=== PATIENT | male | born 1980 | race Hispanic/Latino ===

== ENCOUNTER 2023-06-15 14:23 | Outpatient (CLI) | payer BC, SELFPAY ==
[2023-06-15 18:37] LABS: Monoscreen Negative (Negative); Negative Monotest Control Negative (Negative); Positive Monotest Control Positive (Positive)
== END 2023-06-15 14:24 | disposition home or self-care (01) ==
LOC: ANHGOSHLAB 14:24
PROVIDERS: PCP Family Medicine; Visit Provider Family Medicine
DX: R68.89 Other general symptoms and signs (principal)
CPT/HCPCS: 36415; 86308

== ENCOUNTER 2024-01-27 00:23 | Day surgery (SDC) | payer BC, SELFPAY ==
[2024-01-20 09:11] VITALS: BMI 33.4
--- NOTE | 2024-01-25 10:03 | SUR.PREOP ---
Patient called regarding upcoming procedure. Reviewed preop instructions, appointment times, and procedure prep.
[2024-01-27 07:12] VITALS: BP 149/86; PULSE 65; RESP 18; TEMP 36.2; O2SAT 98; BMI 33.6
[2024-01-27] MEDS: LACTATED RINGERS 1,000 ML 150 ML IV CONT (07:30)
--- NOTE | 2024-01-27 07:52 | P.PNAN_ITS ---
Anes - Initial Pre Proc Eval Procedure: Operation Date: 01/27/24 08:30 Proposed Procedures p Screening Colonoscopy - Daniel Duenas MD Date/Time: 01/27/24 07:52 Surgeon: Daniel Duenas MD Pre Op Diagnosis: neoplasm screening Patient Data Age: 43 Gender: M Height: 1.85 m Weight: 115.6 kg Last Vital Signs Temp 97.1 F L 01/27/24 07:12 Pulse 65 01/27/24 07:12 Resp 18 01/27/24 07:12 BP 149/86 H 01/27/24 07:12 Pulse Ox 98 01/27/24 07:12 O2 Del Method Room Air 01/27/24 07:12 Allergies Allergy/AdvReac Type Severity Reaction Status Date / Time Penicillins Allergy Mild Hives Verified 01/27/24 07:18 Home Medications Medication Instructions Recorded Confirmed Type tizanidine 4 mg tablet 4 mg PO QHS PRN muscle spasticity 09/17/22 01/27/24 Rx #90 tabs aspirin 81 mg capsule 81 mg PO DAILY 01/20/24 01/27/24 History Patient hx anesthesia problems: none Family hx anesthesia problems: none Results Review: All pre-operative results and documents have been reviewed as part of the pre- operative evaluation. FORMERLY [facility], [facility] Surgical History Surgical History H/O microdiscectomy S/P ACL repair Family History Family History Mother No problems noted. Father No problems noted. Grandparent , Age 70 unknown cause No problems noted. Grandparent , Age 80 Heart Disease No problems noted. Grandparent , Age 78 Lung Cancer No problems noted. Grandparent , Age 84 Heart Failure No problems noted. Social History Social History Smoking status: Never smoker Alcohol intake: current Drinks per week: 10 Substance use: never Current Housing: Decline to Answer Concerned About Future Housing: Decline to Answer Difficulty Paying Gas/Electric Bills: Decline to Answer Difficulty Paying for Meds: Decline to Answer Currently Unemployed: Decline to Answer Education: Decline to Answer Difficulty w/ Childcare or Family Care: Decline to Answer Living arrangements: with family Spiritual care concerns: No Anes - Eval Final PreProcedure Day of Procedure 01/27/24 07:52 Patient weight: obese Heart: regular rate and rhythm Lungs: clear to auscultation Airway: Mallampati scale class II Neurological: alert and oriented Last oral intake: >/= 8 hours ASA classification: II Emergent: no Anesthetic plan: proceed Anesthesia type and monitoring: general GIVS and standard monitoring Results Review: All pre-operative results and documents have been reviewed as part of the pre- operative evaluation. Informed Consent: The patient's anesthetic plan and its attendant risks and benefits were discussed with the patient/family/POA. Questions were solicited and answers provided to the satisfaction of the patient/family/POA.
--- NOTE | 2024-01-27 08:15 | P.HP_ITS ---
History of Present Illness History of Present Illness Consent: Risks, benefits, and alternatives have been discussed and questions answered. Patient agrees to proceed with procedure. Chief complaint: neoplasm screening Narrative: Alejo Slade is a 43 year old male here for first screening colonoscopy Review of Systems Review of Systems: All systems reviewed & are unremarkable except as noted in HPI and below [facility] Past Medical History Medical History (Updated 01/27/24 @ 08:16 by Daniel Duenas MD) Colon cancer screening Surgical History Surgical History H/O microdiscectomy S/P ACL repair Family History Family History Mother No problems noted. Father No problems noted. Grandparent , Age 70 unknown cause No problems noted. Grandparent , Age 80 Heart Disease No problems noted. Grandparent , Age 78 Lung Cancer No problems noted. Grandparent , Age 84 Heart Failure No problems noted. Social History Social History Smoking status: Never smoker Alcohol intake: current Drinks per week: 10 Substance use: never Current Housing: Decline to Answer Concerned About Future Housing: Decline to Answer Difficulty Paying Gas/Electric Bills: Decline to Answer Difficulty Paying for Meds: Decline to Answer Currently Unemployed: Decline to Answer Education: Decline to Answer Difficulty w/ Childcare or Family Care: Decline to Answer Living arrangements: with family Spiritual care concerns: No Meds Home Medications and Allergies Home Medications Medication Instructions Recorded Confirmed Type tizanidine 4 mg tablet 4 mg PO QHS PRN muscle spasticity 09/17/22 01/27/24 Rx #90 tabs aspirin 81 mg capsule 81 mg PO DAILY 01/20/24 01/27/24 History Allergies Allergy/AdvReac Type Severity Reaction Status Date / Time Penicillins Allergy Mild Hives Verified 01/27/24 07:18 Vital Signs Vital Signs - 24 hr 01/27/24 07:12 Temperature 97.1 F L Pulse Rate 65 Respiratory Rate 18 Blood Pressure 149/86 H Pulse Oximetry 98 Oxygen Delivery Room Air Exam Const: General: comfortable and no acute distress HENMT: Face/Nose/Sinus: Normal nares present Eyes: General: appearance normal, both eyes and all related structures Neck: Neck: no JVD Resp: Auscultation: clear to auscultation bilaterally Cardio: Rate: regular rate Rhythm: regular rhythm GI: Inspection: non-distended GI Palp: Yes Soft to palpation Skin: General skin exam: normal color Neuro: General: gait normal Speech: normal speech Extrem: General: normal to inspection Psych: Mental Status: mental status grossly normal Assessment and Plan Assessment and plan (1) Colon cancer screening: Code(s): Z12.11 - Encounter for screening for malignant neoplasm of colon Status: Acute Assessment and Plan: colonoscopy
[2024-01-27 08:33] VITALS: BP 122/80; PULSE 69; RESP 17; O2SAT 97
[2024-01-27 08:43] VITALS: BP 135/82; PULSE 66; RESP 18; O2SAT 97
[2024-01-27 08:53] VITALS: BP 142/92; PULSE 62; RESP 23; O2SAT 97
== END 2024-01-27 08:56 | disposition home or self-care (01) ==
PROVIDERS: PCP Family Medicine; Visit Provider Internal Medicine Gastroenterology
PROC: 0DJD8ZZ Inspection of Lower Intestinal Tract, Via Natural or Artificial Opening Endoscopic (ICD-10-PCS; CPT 45378; principal; 2024-01-27 08:30)
DX: Z12.11 Encounter for screening for malignant neoplasm of colon (principal); K64.8 Other hemorrhoids; E66.9 Obesity, unspecified; Z68.33 Body mass index [BMI] 33.0-33.9, adult
CPT/HCPCS: 45378; J2704; J7120

== ENCOUNTER 2024-10-30 10:30 | Outpatient (CLI) | payer BC, SELFPAY ==
[2024-10-30 14:31] LABS: Basophils Percent Auto 0.3 % (0.2-1.2); Eosinophils Absolute Auto 0.1 K/mm3 (0-0.3); Eosinophils Percent Auto 0.8 % (0-4.4); Hemoglobin 15.8 g/dL (14.0-18.0); Immature Granulocyte Absolute 0.01 K/mm3 (0.00-0.031); Immature Granulocyte Percent A 0.2 % (0-0.5); Lymphocytes Absolute Auto 1.84 K/mm3 (0.9-3.2); Lymphocytes Percent Auto 28.8 % (18.3-44.2); Mean Corpuscular HGB Conc 34.3 g/dl (32-36); Mean Corpuscular Hemoglobin 31.7 pg (26-34); Mean Corpuscular Volume 92.2 fl (80-100); Mean Platelet Volume 9.1 fl (7.4-10.4); Monocytes Absolute Auto 0.5 K/mm3 (0.1-0.6); Monocytes Percent Auto 8.5 % (2.6-8.5); Neutrophils Absolute Auto 3.9 K/mm3 (1.3-6.7); Neutrophils Percent Auto 61.4 % (45.5-73.1); Platelet Count Result 307 k/mm3 (150-375); Red Blood Count 4.99 M/mm3 (4.6-6.20); Red Cell Distribution Width 11.9 % (11.5-14.5); White Blood Count 6.4 K/mm3 (4.5-10.0)
[2024-10-30 14:39] LABS: Alanine Aminotransferase 46 U/L (6-50); Albumin Level 4.6 g/dL (3.5-5.1); Alkaline Phosphatase 68 U/L (38-126); Anion Gap 4 mmol/L (4-12); Aspartate Amino Transferase 64 U/L (17-59); Bilirubin,Total 1.2 mg/dL (0.2-1.3); Blood Urea Nitrogen 16 mg/dL (9-20); Calcium 9.5 mg/dL (8.4-10.2); Carbon Dioxide 29 mmol/L (22-30); Chloride 103 mmol/L (98-107); Cholesterol 201 mg/dL (0-200); Estimated Glomerular Filt Rate > 60; Glucose 102 mg/dL (65-110); HDL Direct 50 mg/dL; Potassium 4.1 mmol/L (3.4-5.0); Sodium 136 mmol/L (137-145); Triglycerides 132 mg/dL (<150)
[2024-10-30 14:50] LABS: LDL Cholesterol Direct 112 mg/dL
[2024-10-30 14:56] LABS: Hemoglobin A1C 5.5 % (<5.7)
[2024-10-30 14:58] LABS: Vitamin D 25 Hydroxy 30.5 ng/mL
--- OUTSIDE RECORDS SUMMARY | 2024-11-06 21:49 | XMS_ITS | Patient Health Summary ---
Author Organization [facility] Address [address] [place] [address] Care Team Providers Care Entry Level Mechanical Engineer Name Role Phone Naresh Hart MD Primary Care Provider Note from Formerly named [facility],non-owned Affiliates and Associated Physician Practices is amultiple site organization consisting of ambulatory clinics and hospital sitesin [place], [place], [place] and [place]. This disclosure is being madepursuant to the Care Everywhere program and may not contain all information available regarding this patient. Last updated 18.[facility] [employer] Allergies * Penicillins(Rash) -Medium Criticality Active Problems Problem Noted Date Diagnosed Date Sciatica of right side 08/27/2015 Social History Tobacco Use Types Packs/Day Years Used Date Smoking Tobacco: Never Alcohol Use Standard Drinks/Week Comments Not Asked 0 (1 standard drink = 0.6 oz pur e alcohol) Sex and Gender Information Value Date Recorded Sex Assigned at Not on file Gender Identity Not on file Sexual Orientation Not on file Last Filed Vital Signs Vital Sign Reading Time Taken Comments Blood Pressure - - Pulse - - Temperature - - Respiratory Rate - - Oxygen Saturation - - Inhaled Oxygen Concentration - - Weight 113.4 kg (250 lb) 11/26/2015 1:35 PM PARARESCUE CRAFTSMAN Height 182.9 cm (6') 11/26/2015 1:35 PM PARARESCUE CRAFTSMAN Body Mass Index 33.91 11/26/2015 1:35 PM PARARESCUE CRAFTSMAN Procedures * DERMATOPATHOLOGY(Performed 03/12/2019) * XR LUMBAR SPINE 2 OR 3VW(Performed 11/26/2015) * XR LUMBAR SPINE 2 OR 3VW(Performed 08/27/2015) Results * DERMATOPATHOLOGY (03/12/2019 12:00 AM CDT) Case Report Dermatopathology Report ? Case: [id number] ? Authorizing Provider: ??Thu Joy MD ? Collected: ? 03/12/2019 12:00 AM ? Pathologist: ? Bertha Draper MD ?Received: ?03/13/2019 06:40 AM ? Specimen: ?Skin, right upper back ? 1:46 PM CDT DERMATOPATHOLOGY LABORATORY Final Diagnosis Specimen A. SKIN, right upper back: LENTIGINOUS MELANOCYTIC NEVUS, COMPOUND TYPE, IRRITATED (COMPOUND MELANOCYTIC NEVUS WITH ARCHITECTURAL DISORDER) (D22.5) 1:46 PM CDT DERMATOPATHOLOGY LABORATORY Clinical History Nevus, irreg color. 1:46 PM CDT DERMATOPATHOLOGY LABORATORY Gross Description Specimen A: Received is one formalin filled container labeled with the patient's name and designated right upper back. The specimen consists of a shave measuring [id number]. Jar 0. 1:46 PM CDT DERMATOPATHOLOGY LABORATORY Microscopic Description Specimen A. SKIN, right upper back: This is a compound nevus. There is melanin pigment in the stratum corneum. There is architectural disorder characterized by a lentiginous proliferation of melanocytes between irregular nevus nests of cells along the dermal epidermal junction. There is underlying fibroplasia of the papillary dermis. The intradermal component is bland in appearance and matures with depth. (Compound Benjamin's Nevus or Compound Dysplastic Nevus) 9 1:46 PM CDT DERMATOPATHOLOGY LABORATORY Disclaimer An external and internal positive and negative controls are appropriate for the histochemical, immunohistochemical and immunofluorescence stain(s) in this case (if any), except where stated explicitly. The performance characteristics of the stain(s) cited in this report were developed and its performance characteristic determined by the Dermatopathology Laboratory at [facility], directed by Dr. Adrianna Martini. These tests need not be, and therefore are not, approved by the [place] Food and Drug Administration. The tests are used for clinical purposes. Billing Codes Specimen Charges Stain Charges 12631 1 9 1:46 PM CDT DERMATOPATHOLOGY LABORATORY Embedded Images 9 1:46 PM CDT DERMATOPATHOLOGY LABORATORY Pathology/Cytolog y TISSUE SPECIMEN FROM SKIN / Unknown 03/12/2019 03/13/2019 6:40 AM CDT Thu Joy MD LAB - PATHOLOGY/CYT OLOGY ORDERABLES DERMATOPATHOLOGY LABORATORY [facility] - Department of Dermatology [address] [place] [address], [address] [phone] * XR LUMBAR SPINE 2 OR 3VW (11/26/2015 1:32 PM PARARESCUE CRAFTSMAN) Only the most recent of2 resultswithin the time period is included. Anatomical Region Laterality Modality Spine Other Impressions 11/26/2015 3:28 PM PARARESCUE CRAFTSMAN Impression: Unchanged moderate L4-5 and L5-S1 degenerative disc disease. Report dictated by Ruslan Moser M.D. (vice president of engineering). This report was approved ??by Ruslan Moser M.D. ?? on 11/26/2015 3:22 PM . I, Dr. GITA MENDES M.D. have personally reviewed and interpreted this examination/study. This report was electronically signed by GITA MENDES M.D. ??on 11/26/2015 3:28 PM . Narrative 11/26/2015 3:28 PM PARARESCUE CRAFTSMAN Exam: ??XR SPINE LUMBAR 2 OR 3 VW Date: 11/26/2015 1:32 PM History: ??follow up Comparison: 08/27/2015. Findings: 2 views of the lumbar spine were obtained and compared to 08/27/2015. The alignment is normal. The vertebral body heights are normal. There is unchanged moderate disc space narrowing at L5-S1 and mild disc space narrowing at L4-L5. Mild facet osteoarthritis is present at L4-5 and L5-S1. The sacroiliac joints are intact. Procedure Note Gita Mendes MD - 02/04/2018 Exam: XR SPINE LUMBAR 2 OR 3 VW Date: 11/26/2015 1:32 PM History: follow up Comparison: 08/27/2015. Findings: 2 views of the lumbar spine were obtained and compared to 08/27/2015. Thealignment is normal. The vertebral body heights are normal. There isunchanged moderate disc space narrowing at L5-S1 and mild disc spacenarrowing at L4-L5. Mild facet osteoarthritis is present at L4-5 and L5-S1. The sacroiliac joints areintact. IMPRESSION Impression: Unchanged moderate L4-5 and L5-S1 degenerative disc disease. Report dictated by Ruslan Moser M.D. (vice president of engineering). This report was approved by Ruslan Moser M.D. on 11/26/2015 3:22 PM. I, Dr. GITA MENDES M.D. have personally reviewed and interpreted thisexamination/study. This report was electronically signed by GITA MENDES M.D. on11/26/2015 3:28 PM . Thaddeus Nixon MD DIAGNOSTIC IMAGING O RDERABLES Care Teams Entry Level Mechanical Engineer Relationship Specialty Start Date End Date Naresh Hart MD PCP - General 08/27/15
--- OUTSIDE RECORDS SUMMARY | 2024-11-06 21:49 | XMS_ITS | Encounter Summary ---
Author Organization [facility] Address [address] [address] Care Team Providers Care Metal Melter Name Role Phone Naresh Hart MD Primary Care Provider Encounter Details Date Type Department Care Team (Late st Contact Info) Description 03/13/2019 Lab Requisition [facility] Care DermPath Lab [address], [place] [address] Thu Joy MD [address] [facility] [address] [place] [address] Social History Tobacco Use Types Packs/Day Years Used Date Smoking Tobacco: Never Alcohol Use Standard Drinks/Week Comments Not Asked 0 (1 standard drink = 0.6 oz pur e alcohol) Sex and Gender Information Value Date Recorded Sex Assigned at Not on file Gender Identity Not on file Sexual Orientation Not on file documented as of this encounter Plan of Treatment Not on file documented as of this encounter Procedures Procedure Name Priority Date/Time Associated Diagnosis Comments DERMATOPATHOLOGY Routine 03/12/2019 12:0 0 AM CDT documented in this encounter Results * DERMATOPATHOLOGY (03/12/2019 12:00 AM CDT) Case Report Dermatopathology Report ? Case: [id number] ? Authorizing Provider: ??Thu Joy MD ? [...] The specimen consists of a shave measuring [id number]. Jar 0. 1:46 PM CDT DERMATOPATHOLOGY LABORATORY [...] (Compound Benjamin's Nevus or Compound Dysplastic Nevus) 1:46 PM CDT DERMATOPATHOLOGY LABORATORY Disclaimer An external and internal positive and negative controls are appropriate for the histochemical, immunohistochemical and immunofluorescence stain(s) in this case (if any), except where stated explicitly. The performance characteristics of the stain(s) cited in this report were developed and its performance characteristic determined by the Dermatopathology Laboratory at [facility], directed by Dr. Adrianna Martini. These tests need not be, and therefore are not, approved by the [place] Food and Drug Administration. The tests are used for clinical purposes. Billing Codes Specimen Charges Stain Charges 13875 1 9 1:46 PM CDT DERMATOPATHOLOGY LABORATORY Embedded Images 9 1:46 PM CDT DERMATOPATHOLOGY LABORATORY Pathology/Cytolog y TISSUE SPECIMEN FROM SKIN / Unknown 03/12/2019 03/13/2019 6:40 AM CDT Thu Joy MD LAB - PATHOLOGY/CYT OLOGY ORDERABLES DERMATOPATHOLOGY LABORATORY [facility] - Department of Dermatology [address] [place] [address] [address] [phone] documented in this encounter Visit Diagnoses Not on filedocumented in this encounter Care Teams Metal Melter Relationship Specialty Start Date End Date Naresh Hart MD PCP - General 08/27/15 documented as of this encounter
--- OUTSIDE RECORDS SUMMARY | 2024-11-06 21:49 | XMS_ITS | Referral Summary ---
Author Organization [facility] Address [address] [place] [address] Care Team Providers Care Chick Room Supervisor Name Role Phone Naresh Hart MD Primary Care Provider Source Comments [facility],non-owned Affiliates and Associated Physician Practices is amultiple site organization consisting of ambulatory clinics and hospital sitesin [place], [place], [place]. This disclosure is being madepursuant to the Care Everywhere program and may not contain all information available regarding this patient. Last updated 18.[facility] [employer] Allergies Active Allergy Reactions Criticality Noted Date Comments Penicillins Rash Medium 08/27/2015 Active Problems Problem Noted Date Diagnosed Date [...] 113.4 kg (250 lb) 11/26/2015 1:35 PM STUD DRIVER Height 182.9 cm (6') 11/26/2015 1:35 PM STUD DRIVER Body Mass Index 33.91 11/26/2015 1:35 PM STUD DRIVER Plan of Treatment Not on file Care Teams Chick Room Supervisor Relationship Specialty Start Date End Date Naresh Hart MD PCP - General 08/27/15
--- OUTSIDE RECORDS SUMMARY | 2024-11-06 21:49 | XMS_ITS | Clinical Summary ---
Author Organization [facility] Address [address] [place] [address] Care Team Providers Care Poultry Boner Name Role Phone Naresh Hart MD Primary Care Provider Source Comments [facility],non-owned Affiliates and Associated Physician Practices is amultiple site organization consisting of ambulatory clinics and hospital sitesin [place], [place], [place] and [place]. This disclosure is being madepursuant to the Care Everywhere program and may not contain all information available regarding this patient. Last updated 18.[facility] Allergies Active Allergy Reactions Criticality Noted Date [...] 113.4 kg (250 lb) 11/26/2015 1:35 PM INCIDENT RESPONSE SPECIALIST Height 182.9 cm (6') 11/26/2015 1:35 PM INCIDENT RESPONSE SPECIALIST Body Mass Index 33.91 11/26/2015 1:35 PM INCIDENT RESPONSE SPECIALIST Plan of Treatment Health Maintenance Due Date Last Done Comments COLOGUARD (AGES 45-75) - COL ON CA SCREENING 1978 COLON MONITORING 1978 COLONOSCOPY - COLON CA SCREENING 1978 CT COLONOGRAPHY - COLON CA SCREENING 1978 Colorectal Cancer Screening 1978 FIT - COLON CA SCREENING 1978 FLEX SIG - COLON CA SCREENING 1978 LIPID TESTING 1978 HIV SCREENING 1993 HEPATITIS C SCREENING 08/09/1996 DTAP/TDAP/TD VACCINES (1 - Tdap) 1997 HEPATITIS B VACCINE (1 of 3 - 19+ 3-dose series) 1997 DEPRESSION SCREENING 11/07/2023 COVID-19 VACCINE (1 - 2023-2 5 season) 2024 INFLUENZA VACCINE (#1) 2024 ZOSTER VACCINE (1 of 2) 2028 HIB VACCINE Aged Out No longer eligi ble based on patient's age to complete this topic HPV VACCINE Aged Out No longer eligi ble based on patient's age to complete this topic MENINGOCOCCAL VACCINE Aged Out No kassi lacy eligible based on patient's age to complete this topic PNEUMOCOCCAL VACCINE Aged Out No long er eligible based on patient's age to complete this topic Care Teams Poultry Boner Relationship Specialty Start Date End Date Naresh Hart MD PCP - General 08/27/15
--- OUTSIDE RECORDS SUMMARY | 2024-11-06 21:50 | XMS_ITS | Encounter Summary ---
Author Organization [facility] Address [address] [place] [address] Care Team Providers Care Qa Specialist Name Role Phone Naresh Hart MD Primary Care Provider Encounter Details Date Type Department Care Team (Late st Contact Info) Description 08/27/2015 Hospital Outpatient Visit [facility] - Orthopedics [address] [place] [address], [place] [address] Thaddeus Nixon MD [address] [place] [address] [place] [address] Discharge Disposition: Home or Self Care Social History Tobacco Use Types Packs/Day Years [...] Procedure Name Priority Date/Time Associated Diagnosis Comments XR LUMBAR SPINE 2 OR 3VW Routine 08/27/2015 12:42 PM CDT documented in this encounter Results * XR LUMBAR SPINE 2 OR 3VW (08/27/2015 12:42 PM CDT) Anatomical Region Laterality Modality Spine Other Impressions 08/27/2015 6:30 PM CDT IMPRESSION: Mild to moderate L4-5 and L5-S1 degenerative disc and joint disease. Dictated by Usman Grissom MD (vice president underwriting). I, Dr. JONE BRISCOE MD have personally reviewed and interpreted this examination/study. This report was electronically signed by JONE BRISCOE MD ??on 08/27/2015 6:30 PM . Narrative 08/27/2015 6:30 PM CDT EXAMINATION: XR SPINE LUMBAR 2 OR 3 VW HISTORY: chronic pain COMPARISON: No prior study is available for comparison. FINDINGS: The vertebral bodies are normally aligned. There is no fracture or compression deformity. The L5-S1 disc space is moderately reduced, and the L4-5 disc space is mildly reduced. The associated facets are mildly sclerotic. Procedure Note Jone Briscoe MD - 02/04/2018 EXAMINATION: XR SPINE LUMBAR 2 OR 3 VW HISTORY: chronic pain COMPARISON: No prior study is available for comparison. FINDINGS: The vertebral bodies are normally aligned. There is no fracture orcompression deformity. The L5-S1 disc space is moderately reduced, and theL4-5 disc space is mildly reduced. The associated facets are mildlysclerotic. IMPRESSION IMPRESSION: Mild to moderate L4-5 and L5-S1 degenerative disc and joint disease. Dictated by Usman Grissom MD (vice president underwriting). I, Dr. JONE BRISCOE MD have personally reviewed and interpreted thisexamination/study. This report was electronically signed by JONE BRISCOE MD on08/27/2015 6:30 PM . Thaddues Nixon MD DIAGNOSTIC IMAGING O RDERABLES documented in this encounter Visit Diagnoses Diagnosis Other chronic pain documented in this encounter Care Teams Qa Specialist Relationship Specialty Start Date End Date Naresh Hart MD PCP - General 08/27/15 documented as of this encounter
--- OUTSIDE RECORDS SUMMARY | 2024-11-06 21:50 | XMS_ITS | Encounter Summary ---
Author Organization [facility] Address [address] [address] Care Team Providers Care Petroleum Transport Driver Name Role Phone Naresh Hart MD Primary Care Provider Encounter Details Date Type Department Care Team (Late st Contact Info) Description 11/26/2015 Hospital Outpatient Visit [facility] - Orthopedics [address] [place] [address], [place] [address] Thaddeus Nixon MD [address] [place] [address] [place] [address] Discharge Disposition: Home or Self [...] XR LUMBAR SPINE 2 OR 3VW Routine 11/26/2015 1:32 PM POWER SHOVEL OPERATOR HELPER documented in this encounter Results * XR LUMBAR SPINE 2 OR 3VW (11/26/2015 1:32 PM POWER SHOVEL OPERATOR HELPER) Anatomical Region Laterality Modality Spine Other Impressions 11/26/2015 3:28 PM POWER SHOVEL OPERATOR HELPER Impression: Unchanged moderate L4-5 and L5-S1 degenerative disc disease. Report dictated by Ruslan Moser M.D. (residential child care counselor). This report was approved ??by Ruslan Moser M.D. ?? on 11/26/2015 3:[address] GITA Griffin M.D. have personally reviewed and interpreted this examination/study. This report was electronically signed by GITA MENDES M.D. ??on 11/26/2015 3:28 PM . Narrative 11/26/2015 3:28 PM POWER SHOVEL OPERATOR HELPER Exam: ??XR SPINE LUMBAR 2 OR 3 [...] disease. Report dictated by Ruslan Moser M.D. (residential child care counselor). This report was approved by Ruslan Moser M.D. on 11/26/2015 3:[address] GITA Griffin M.D. have personally reviewed and interpreted thisexamination/study. This report was electronically signed by GITA MENDES M.D. on11/26/2015 3:28 PM . Thaddeus Nixon MD DIAGNOSTIC IMAGING O RDERABLES documented in this encounter Visit Diagnoses Diagnosis Encounter for follow-up examination after completed treatment for conditions other than malignant neoplasm documented in this encounter Care Teams Petroleum Transport Driver Relationship Specialty Start Date End Date Naresh Hart MD PCP - General 08/27/15 documented as of this encounter
--- OUTSIDE RECORDS SUMMARY | 2024-11-06 21:52 | XMS_ITS | Clinical Summary ---
Author Organization [facility] Address [address] [place] [address] Care Team Providers Care Remote Pilot Operator Name Role Phone Immanuel Hart MD Primary Care Provider [phone] [phone] Allergies Active Allergy Reactions Criticality Noted Date Comments Penicillins Rash Medium 09/04/2012 Medications tiZANidine (ZANAFLEX) 4 mg tablet Take 1 tablet (4 mg total) by mouth every 8 (eight) hours as needed for muscle spasms 90 tablet 01/16/2020 Active magnesium 30 mg tablet Take 30 mg by mouth daily Active vitamin B complex capsule Take 1 capsule by mouth daily Active cholecalciferol (VITAMIN D-3) 25 mcg (1,000 unit) tablet Take 1,000 Units by mouth daily Active multivitamin capsule Take 1 capsule by mouth daily Active aspirin 81 mg enteric coated tablet Take 81 mg by mouth daily Active ketoconazole (NIZORAL) 2 % shampoo 10/08/2020 Active Active Problems Problem Noted Date Diagnosed Date Vitamin D deficiency 03/13/2019 Overweight 03/13/2019 Right ankle pain 03/13/2018 Tinea versicolor 05/04/2016 Sciatica of right side 08/27/2015 Lumbar radiculopathy 03/25/2015 Abnormal liver function tests 2014 Low back pain 09/04/2012 Resolved Problems Problem Noted Date Diagnosed Date Resolved Date Disorder of lower leg 02/28/20152018 Immunizations Name Administration Dates Next Due TD Preservative Free 11/07/2004 Tdap 05/09/2013 Surgical History Surgery Date Site/Laterality Comments ANTERIOR CRUCIATE LIGAMENT REPAIR 06/07/2007 - 07/07/2007 Right Primary Repair Of Knee Ligament Cruciate Anterior - right, Jun 2007 WISDOM TOOTH EXTRACTION BACK SURGERY 07/08/2017 - 08/06/2017 N/A Back Surgery - Jul 2017, L5/S1 microdiskectomy with Dr. Mitch Hoffman Medical History Medical History Date Comments History of radiculopathy Family History Medical History Relation Name Comments Cancer Father COPD Mother Hypertension Mother Breast cancer Mother's Sister Heart failure Paternal Grandfather Relation Name Status Comments Father Alive Mother Alive Mother's Sister Paternal Grandfather Social History Tobacco Use Types Packs/Day Years Used Date Smoking Tobacco: Never Smokeless Tobacco: Never Alcohol Use Standard Drinks/Week Comments Yes 0 (1 standard drink = 0.6 oz pur e alcohol) PHQ-2 Answer Date Recorded PHQ-2 Score 0 06/29/2019 Sex and Gender Information Value Date Recorded Sex Assigned at Not on file 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 Gender Identity Not on file Sexual Orientation Not on file 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 Not on file Not on file Obstetrics History Last Filed Vital Signs Vital Sign Reading Time Taken Comments Blood Pressure 140/80 03/13/2019 9:03 AM CDT Pulse 86 03/13/2019 9:03 AM CDT Temperature 36.4 ??C (97.5 ??F) 03/13/2019 9:03 AM CD T Respiratory Rate - - Oxygen Saturation 95% 03/13/2019 9:03 AM CDT Inhaled Oxygen Concentration - - Weight 108.9 kg (240 lb) 08/07/2020 6:21 AM CDT Height 185.4 cm (6' 1 ) 08/07/2020 6:21 AM CDT Body Mass Index 31.66 08/07/2020 6:21 AM CDT Plan of Treatment Health Maintenance Due Date Last Done Comments Colon Cancer Screening-Colonoscopy 1980 Hepatitis C Screening 1980 Depression Screening 03/13/2020 03/13/2019 Regular Well Visit/Exam 18-64 03/13/2020, 03/13/2019 DTaP/Tdap/Td Vaccine (2 - Td or Tdap) 05/09/2023 05/09/2013, 11/07/2004 Covid-19 Vaccine (2023-2 5 season) 2024 02/03/2022, 10/07/2021 Influenza Vaccine (#1) 2024 HPV Vaccines Aged Out No longer eligi ble based on patient's age to complete this topic Pneumococcal vaccine <65 Aged Out No longer eligible based on patient's age to complete this topic Insurance [employer] CHO[employer] [facility] Care Teams Remote Pilot Operator Relationship Specialty Start Date End Date Immanuel Hart MD [address] [place] [address] PCP - General Internal Medicine 07/31/20
--- OUTSIDE RECORDS SUMMARY | 2024-11-06 21:52 | XMS_ITS | Referral Summary ---
Author Organization [facility] Address [address] [place] [address] Care Team Providers Care Sort Worker Name Role Phone Immanuel Hart MD Primary Care Provider [phone] [phone] Allergies Active Allergy Reactions Criticality Noted Date [...] Due TD Preservative Free 11/07/2004 Tdap 05/09/2013 Social History Tobacco Use Types Packs/Day Years Used Date Smoking Tobacco: Never Smokeless Tobacco: Never Alcohol Use Standard Drinks/Week Comments Yes 0 (1 standard drink = 0.6 oz pur e alcohol) PHQ-2 Answer Date Recorded PHQ-2 Score 0 06/29/2019 Sex and Gender Information Value Date Recorded Sex Assigned at Not on file 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
--- OUTSIDE RECORDS SUMMARY | 2024-11-06 21:53 | XMS_ITS | Encounter Summary ---
Author Organization [facility] Address [address] [place] [address] Care Team Providers Care Load Checker Name Role Phone Immanuel Hart MD Primary Care Provider [phone] [phone] Reason for Visit * Reason Comments PT Treatment Encounter Details Date Type Department Care Team (Late st Contact Info) Description 10/29/2020 9:00 AM LEADERSHIP COACH Therapy 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 male Referring Diagnosis: Chronic pain of right ankle [M25.571, G89.29] Physical therapy movement impairment diagnosis/diagnoses: gait deviations secondary to weakness R gastroc mm from hx of L spine nerve compression Date of Onset: 2017 Referring Practitioner: Laci Perry MD Today's date: 10/29/20 Start Time: 9:00 AM SUBJECTIVE --his R ankle feels pretty good. 0/10 pain level. Init Mechanism of Injury: back injury 1999 and reinjury 2005 and found out had a herniated disc. Had PT and thought was better. In 2016, notes that R gastroc girth was decreased. Had back surgery in 2018, microdiscectomy of L5-S1. After surgery, he had new sensations of itching, tingling, tickling in entire calf. And then he noticed he had a nodule in R medial ankle, was recommended surgery and declined. Then the outside of the ankle, started getting stabbing in R lateral ankle and also noted the nodules as well in the lateral ankle. He is scheduled for an EMG test R leg 10/22/20. Med Hx: R ACL repair 2006 Patient Goals: stand, walk and work without pain Subjective Functional Outcome: Lower Extremity Functional Scale: 21.25% OBJECTIVE Standing Alignment/Posture: pt stands with fairly neutral arch bilat, with R toes flexed, with slight hip ER bilat Gait: overall improved with less flexion of toes during mid to late stance phase, with some min cues to overuse peroneal mm at push off, as well as needs cues for eccentric followed by concentric useof R gastroc mm in mid to late stance phases. Palpation:decreased tenderness R peroneal tendon --with heel rise, note significant decreased girth R compared to L gastroc and only the lateral head M belly is visible/contracts. Pt with trace medial head contraction R Active Range of Motion: ankle inversion, eversion, plantarflexion : WNL ;Dorsiflexion : 0-8 Muscle Length: Gastroc : 0-8 degrees prone Joint Play: midfoot stiffness R Strength (Manual Muscle Test): Anterior Tib: Left 5/5; Right 5/5 Ankle Plantarflexion - closed chain: Left 5/5; Right 3-/5 (and tends to flex knee) Posterior Tib: Left 5/5; Right 5/5 Peroneals: Left 5/5; Right 5/5 EHL: Left 5/5; Right 5/5 FHL: Left 5/5; Right 5/5 Gluteus aneudy: Left 5/5; Right 4/5 Gluteus medius: Left 5/5; Right 4/5 Balance/Proprioception: Single Leg Stance : static: good balance,with less overuse of toe flexors Dynamic: With min challenges to balance TREATMENT 1) reviewed modifications with gait to prevent overuse of peroneal mm with push off, and to improveuse of gastroc and gluteal mm in mid to late stance phase 2) reviewed HEP per flow sheet with verbal and manual cues. Pt performed them with montenegrin stim for5/5 sec on/off with heel raises, standing wall leans and with seated gastroc/pf, with blaze resistance at end range PF with knee straight, and with SL lift. 4) researched home e stim units of low frequency and medium frequency units for pt to purchase and perform the above exercises at home Exercise/ Activity Date: 10/06 Date: 10/20 Date: 10/24 Date: 10/29 Date: Date: bilat heel raises init 50/50% WB X X with e stim X with e stim for 10 min Seated heel raises init with e stim init with e stim with 25# kettlebell 5 min SLS wall leans init with cues to keep knee straight bilat and unilat X with e stim X, with e stim 3min SL hip abd init x10 Prone hip ext with knee flexed init x10 bridge init SL bridge init with only heel lift on L for now for partial increased WB R X alternating heel liftswith e stim 2 min Standing gastroc stretch straight and with rotation init reviewed Seated gastroc strengthening with marie TB and blaze hold at end range init X with e xtim X SLS with lift With 5# kettle wilcox with e stim X With e stim 5 min SLS with superman reaches init with e stim x 5 min eval gastroc length X eval more dynamic SLS init gait X Flowsheet Machado: X = performed, x = times/multiply, s = seconds, ea = each, st = stretch Timed Treatment thera ex for 5 minutes Neuromuscular re education with montenegrin stim to gastroc for 30 min Gait for 10 min Total of Timed Treatment Codes: 45 minutes Ending Pain: 0/10 Stop Time: 10:00 am ASSESSMENT Response to today???s treatment: good PLAN Continue PT with same POC. Short Term Goals: 2 weeks 1. indep with HEP, progressing 2. Decrease gait deviations Residential Goals: 12-16 weeks 1. 5/5 strength R gluteal mm 2. R gastroc strength 4/5 3. Pt to stand for 60 min without pain 4. Pt to walk for 60 min without pain Keiry Collier, PT ERSHIP COACH documented in this encounter Plan of Treatment Not on file documented as of this encounter Visit Diagnoses Diagnosis Chronic pain of right ankle- Primary documented in this encounter Care Teams Load Checker Relationship Specialty Start Date End Date Immanuel Hart MD [address] [place] [address] PCP - General Internal Medicine 07/31/20 documented as of this encounter
--- OUTSIDE RECORDS SUMMARY | 2024-11-06 21:53 | XMS_ITS | Encounter Summary ---
Author Organization [facility] Healthcare Address [address] [place] [address] Care Team Providers Care Meteorology Faculty Member Name Role Phone Immanuel Hart MD Primary Care Provider [phone] Reason for Visit * Reason Comments PT Treatment Encounter Details Date Type Department Care Team (Late st Contact Info) Description 11/14/2020 8:00 AM MILK TANKER DRIVER Therapy [facility] at [address] [place] [id number] [place] [address] [place] [address] Chronic pain of right ankle (Primary Dx) [...] on file Legal Sex Male 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 male Referring Diagnosis: Chronic pain of right ankle [M25.571, G89.29] Physical therapy movement impairment diagnosis/diagnoses: gait deviations secondary to weakness R gastroc mm from hx of L spine nerve compression Date of Onset: 2017 Referring Practitioner: Laci Perry MD Today's date: 11/14/20 Start Time: 8:00 AM SUBJECTIVE --pt was moving and carrying a lot of objects and had R lateral ankle soreness. No pain today Init Mechanism of Injury: back injury 1999 [...] fairly neutral arch bilat, with R toes less flexed than initially, with slight hip ER bilat Gait: overall improved with less flexion of toes during mid to late stance phase, with some min cues to overuse peroneal mm at push off, as well as needs cues for eccentric followed by concentric useof R gastroc mm in mid to late stance phases. Palpation:pt still with mild tenderness R peroneal tendon insertion --with heel rise, note significant decreased girth R compared to L gastroc and only the lateral head M belly is visible/contracts. Pt with trace medial head contraction R Active Range of Motion: ankle inversion, eversion, plantarflexion : WNL ;Dorsiflexion : 0-10 Muscle Length: Gastroc : 0-10 degrees prone Joint Play: midfoot stiffness R Strength (Manual Muscle Test): Anterior Tib: Left 5/5; Right 5/5 Ankle Plantarflexion - closed chain: Left 5/5; Right 3-/5 (and tends to flex knee) Posterior Tib: Left 5/5; Right 5/5 Peroneals: Left 5/5; Right 5/5 EHL: Left 5/5; Right 5/5 FHL: Left 5/5; Right 5/5 Gluteus aneudy: Left 5/5; Right 5-/5 Gluteus medius: Left 5/5; Right 5-/5 Balance/Proprioception: Single Leg Stance : static: good balance,with less overuse of toe flexors Dynamic: With min challenges to balance TREATMENT 1) reviewed modifications with gait to prevent overuse of peroneal mm with push off, and to improveuse of gastroc and gluteal mm in mid to late stance phase 2) reviewed HEP per flow sheet with verbal and manual cues. Pt performed them with palestinian stim for5/5 sec on/off with heel raises, standing wall leans and with seated gastroc/pf, with blaze resistance at end range PF with knee straight, and with SL lift, and single leg bridge. Int triplanar reaching 4) again recommmended home e stim units of low frequency and medium frequency units for pt to purchase and perform the above exercises at home, as well as with gait so that he is able to work on this3-5 days per week vs 1-2 times per week. 5) applied iontophoresis 80 min/min patch to insertion of R peroneal tendon Exercise/ Activity Date: 10/06 Date: 10/20 Date: 10/24 Date: 10/29 Date: 11/03 Date: 11/14 bilat heel raises init 50/50% WB X X with e stim X with e stim for 10 min X X Seated heel raises init with e stim init with e stim with 25# kettlebell 5 min X X SLS wall leans init with cues to keep knee straight bilat and unilat X with e stim X, with e stim 3min X X SL hip abd init x10 Prone hip ext with knee flexed init x10 bridge init SL bridge init with only heel lift on L for now for partial increased WB R X alternating heel liftswith e stim 2 min X X Standing gastroc stretch straight and with rotation init reviewed Seated gastroc strengthening with marie TB and blaze hold at end range init X with e xtim X X SLS with lift With 5# kettle wilcox with e stim X With e stim 5 min X X SLS with superman reaches init with e stim x 5 min X X SLS with triplanar reaching init eval gastroc length X eval more dynamic SLS init gait X X Flowsheet Machado: X = performed, x = times/multiply, s = seconds, ea = each, st = stretch Timed Treatment thera ex for 15 minutes Neuromuscular re education with palestinian stim to gastroc for 35 min iontophoresis for 10 min Total of Timed Treatment Codes: 60 minutes Ending Pain: 0/10 Stop Time: 10:00 am ASSESSMENT Response to today???s treatment: good PLAN Continue PT with same POC. Short Term Goals: 2 weeks 1. indep with HEP, progressing 2. Decrease gait deviations Custodial Goals: 12-16 weeks 1. 5/5 strength R gluteal mm 2. R gastroc strength 4/5 3. Pt to stand for 60 min without pain 4. Pt to walk for 60 min without pain Keiry Collier, PT TANKER DRIVER TANKER DRIVER documented in this encounter Plan of Treatment Not on file documented as of this encounter Visit Diagnoses Diagnosis Chronic pain of right ankle- Primary documented in this encounter Care Teams Meteorology Faculty Member Relationship Specialty Start Date End Date Immanuel Hart MD [address] [place] [address] PCP - General Internal Medicine 07/31/20 documented as of this encounter
--- OUTSIDE RECORDS SUMMARY | 2024-11-06 21:53 | XMS_ITS | Encounter Summary ---
Author Organization [facility] [employer] [facility] Address [address] [place] [address] Phone Care Team Providers Care Fitness And Wellness Director Name Role Phone Immanuel Hart MD Primary Care Provider [phone] [phone] Reason for Referral * Diagnostic Imaging (Routine) - Closed Specialty Diagnoses / Procedures Referred By Contac t Referred To Contact Diagnoses Acute right ankle pain Procedures X-ray ankle right 3+ views Lynn King NP [address] [facility] [address] [place] [address] Phone: tel: fax: [address] [address] Referral ID Status Reason Start Date Expiration Date Visits Re quested Visits Authorized [id number] Closed 07/31/2020 08/30/2021 1 1 Encounter Details Date Type Department Care Team (Late st Contact Info) Description 07/31/2020 7:30 AM CDT Office Visit [facility] Orthopaedic Surgery [facility] Medical Office Building [address] [place] [id number] Lynn King NP [address] [facility] [address] [place] [address] Chronic pain of right ankle (Primary Dx) [...] on file 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 Gender Identity Not on file Sexual Orientation Not on file 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 Not on file Not on file documented as of this encounter Last Filed Vital Signs Vital Sign Reading Time Taken Comments Blood Pressure - - Pulse - - Temperature - - Respiratory Rate - - Oxygen Saturation - - Inhaled Oxygen Concentration - - Weight 108.9 kg (240 lb) 07/31/2020 7:28 AM CDT Height 185.4 cm (6' 1 ) 07/31/2020 7:28 AM CDT Body Mass Index 31.66 07/31/2020 7:28 AM CDT documented in this encounter Patient Instructions * Patient Instructions* Maribel Landry RMA - 07/31/2020 7:30 AM CDT You are scheduled for Right Ankle MRI Location: -[facility]- [address] [place] [address]- [phone] Please bring a list of your current medications, a photo ID, and your insurance card. If you need to reschedule your appointment, please call the Radiology Department at [phone] option #2. Please do not reschedule your appointment any sooner than the date above to allow time for your insurance to approve the test. documented in this encounter Progress Notes * Lynn King NP - 07/31/2020 7:30 AM CDT NEW PATIENT VISIT CHIEF COMPLAINT Foot/leg issues REFERRING PROVIDER Immanuel Hart MD HISTORY OF PRESENT ILLNESS Alejo Slade is a 39 y.o. male with history of right lower extremity weakness, due to lumbar radiculopathy, status post micro diskectomy 2016. Reports ankle discomfort for years. He describes paincan be sharp and aching at the lateral ankle. No locking. Has noted fullness inferiorly to the fibula. Also has pain inferior to the medial malleolus. Reports 2 prior evaluations with recommendationsfor surgery and boot for 3 months post op. He was worried about progressive lower extremity atrophyand declined. PAST MEDICAL HISTORY He has a past medical history of History of radiculopathy. PAST SURGICAL HISTORY He has a past surgical history that includes Anterior cruciate ligament repair (Right, 06/2007); [place] tooth extraction; and Back surgery (N/A, 07/2017). INITIAL REVIEW OF MEDICATIONS He has a current medication list which includes the following prescription(s): aspirin, cholecalciferol, magnesium, multivitamin, tizanidine, and vitamin b complex. ALLERGIES He is allergic to penicillins. SOCIAL HISTORY He reports that he has never smoked. He has never used smokeless tobacco. He reports current alcohol use. He reports that he does not use drugs. FAMILY HISTORY His family history includes Breast cancer in his mother's sister; COPD in his mother; Cancer in hisfather; Heart failure in his paternal grandfather; Hypertension in his mother. REVIEW OF SYSTEMS Review of systems is negative. PHYSICAL EXAMINATION CONSTITUTIONAL: Well-appearing, in no apparent distress EYES: No scleral icterus or conjunctival hemorrhage CARDIOVASCULAR: Skin warm and well-perfused, no peripheral edema RESPIRATORY: Breathing unlabored without accessory muscle use PSYCHIATRIC: Alert, cooperative, appropriate mood and affect SKIN: No lesions or rashes on exposed skin MUSCULOSKELETAL: Gait without deviation. Adequate arch, neutral foot alignment. Stiffness in the midfoot. He has difficulty with toe walking on the right, weakness. Able to heel walk on the right without weakness. Identifies painful area inferior to the right fibula with a firm protuberance, will extend to the lateral midfoot. He did not increase pain with forced inversion. Ankle dorsiflexion, inversion, eversion strength is 5/5. Notable right medial calf atrophy. Negative drawers. Negative calcaneal squeeze. Negative metatarsal squeeze. NEUROLOGIC: Sensation intact to the of the right foot and ankle. REVIEW OF IMAGING/STUDIES EXAMINATION: Right ankle 3 or more views HISTORY: Right ankle pain ?? FINDINGS: 3 views of the right ankle are submitted for interpretation. Right foot radiographs on 07/17/2018 are reviewed. The ankle mortise is intact. The joint spaces are normal. There is no fracture. There is thickening of the distal Achilles tendon 5 cm proximal to its insertion on the calcaneus. Heterotopic ossification is present in the medial ankle from old sprain. ? IMPRESSION: 1. Right distal Achilles tendinopathy. 2. Chronic medial right ankle sprain. ?? Electronically signed by: Yash Holcomb M.D. IMPRESSION/DIAGNOSIS Right lateral ankle and midfoot pain TREATMENT/PLAN I discussed history, exam, imaging findings and working diagnosis. We discussed findings on x-ray obtained today. Recommend right ankle MRI without contrast to further evaluate for ligamentous/tendinous changes. He voices agreement with the plan. All questions were answered. Lynn King, RN, ANP-[facility] Orthopedics Division of Physical Medicine and Rehabilitation In collaboration with Dr. Daily Portions of this note were dictated using [employer] Direct speech recognition software. Cosigned by Charlene Daily MD at 08/04/2020 2:20 PM CDT documented in this encounter Plan of Treatment Not on file documented as of this encounter Results * X-ray ankle right 3+ views (07/31/2020 8:05 AM CDT) Anatomical Region Laterality Modality Lower Extremities, Ankle Right Compute d Radiography 07/31/2020 8:17 AM CDT Impressions 07/31/2020 8:17 AM CDT 1. ??Right distal Achilles tendinopathy. 2. Chronic medial right ankle sprain. Electronically signed by: Yash Holcomb M.D. Narrative 07/31/2020 8:17 AM CDT EXAMINATION: Right ankle 3 or more views HISTORY: ??Right ankle pain FINDINGS: 3 views of the right ankle are submitted for interpretation. Right foot radiographs on 07/17/2018 are reviewed. The ankle mortise is intact. The joint spaces are normal. There is no fracture. There is thickening of the distal Achilles tendon 5 cm proximal to its insertion on the calcaneus. Heterotopic ossification is present in the medial ankle from old sprain. Procedure Note Yash Holcomb MD - 07/31/2020 EXAMINATION: Right ankle 3 or more views HISTORY: Right ankle pain FINDINGS: 3 views of the right ankle are submitted for interpretation. Right foot radiographs on 07/17/2018 are reviewed. The ankle mortise is intact. The joint spaces are normal. There is no fracture. There is thickening of the distal Achilles tendon 5 cm proximal to its insertion on the calcaneus. Heterotopic ossification is present in the medial ankle from old sprain. IMPRESSION: 1. Right distal Achilles tendinopathy. 2. Chronic medial right ankle sprain. Electronically signed by: Yash Holcomb M.D. Lynn King NP IMG XR PROCEDURES Final Resul t documented in this encounter Visit Diagnoses Diagnosis Chronic pain of right ankle- Primary Acute right ankle pain documented in this encounter Discontinued Medications Medication Sig Discontinue Reason Start Date End Da te HYDROcodone-acetaminophen (VICODIN) 5-300 mg per tablet daily as needed Therapy completed 06/11/2020 07/31/2020 documented as of this encounter Historical Medications * This list may reflect changes made after this encounter. aspirin 81 mg enteric coated tablet Take 81 mg by mouth daily multivitamin capsule Take 1 capsule by mouth daily cholecalciferol (VITAMIN D-3) 25 mcg (1,000 unit) tablet Take 1,000 Units by mouth daily vitamin B complex capsule Take 1 capsule by mouth daily magnesium 30 mg tablet Take 30 mg by mouth daily HYDROcodone-aceta minophen (VICODIN) 5-300 mg per tablet daily as needed 06/11/2020 07/31/2020 added in this encounter Care Teams Fitness And Wellness Director Relationship Specialty Start Date End Date Immanuel Hart MD [address] [place] [address] PCP - General Internal Medicine 07/31/20 documented as of this encounter
--- OUTSIDE RECORDS SUMMARY | 2024-11-06 21:53 | XMS_ITS | Encounter Summary ---
Author Organization [facility] Address [address] [place] [address] Phone Care Team Providers Care Head Mechanic Name Role Phone Immanuel Hart MD Primary Care Provider [phone] Reason for Referral * Neurology (Routine) - Closed Specialty Diagnoses / Procedures Referred By Contac t Referred To Contact Diagnoses Sciatica of right side Procedures EMG/NCV - Laci Perry MD [address] [facility] [place] [address] Phone: tel: fax: [facility] Orthopaedic Surgery [address] [place] [phone] Phone: tel: fax: Referral ID Status Reason Start Date Expiration Date Visits Re quested Visits Authorized [id number] Closed 08/27/2020 09/26/2021 1 1 Encounter Details Date Type Department Care Team (Late st Contact Info) Description 08/27/2020 Orders Only [facility] Orthopaedic Surgery [address] [place] [address] Advanced Medicine 6th [place] [address] [place] [id number] Laci Perry MD [address] [facility] [place] [address] Sciatica of right side (Primary Dx) Social History Tobacco Use Types Packs/Day Years Used Date Smoking Tobacco: Never Smokeless Tobacco: Never Alcohol Use Standard Drinks/Week Comments Yes 0 (1 standard drink = 0.6 oz pur e alcohol) PHQ-2 Answer Date Recorded PHQ-2 Score 0 06/29/2019 Sex and Gender Information Value Date Recorded Sex Assigned at Not on file 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 ACUTE DIALYSIS Gender Identity Not on file Sexual Orientation Not on file 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 Not on file Not on file documented as of this encounter Miscellaneous Notes * Addendum Note - Erich Zelaya RMA - 08/27/2020 9:43 AM CDTAddended by: ERICH ZELAYA on: 08/27/2020 09:46 AM Modules accepted: Orders documented in this encounter Plan of Treatment Not on file documented as of this encounter Results * EMG/NCV - (10/22/2020) Anatomical Region Laterality Modality Other us Laci Perry MD NEUROLOGY ORDERABLES Final Result documented in this encounter Visit Diagnoses Diagnosis Sciatica of right side- Primary documented in this encounter Care Teams Head Mechanic Relationship Specialty Start Date End Date Immanuel Hart MD [address] [place] [address] PCP - General Internal Medicine 07/31/20 documented as of this encounter
--- OUTSIDE RECORDS SUMMARY | 2024-11-06 21:53 | XMS_ITS | Encounter Summary ---
Author Organization [facility] Address [address] [place] [address] Care Team Providers Care Director Of Aviation Name Role Phone Immanuel Hart MD Primary Care Provider [phone] Reason for Referral * Diagnostic Imaging (Routine) - Closed Specialty Diagnoses / Procedures Referred By Kevyn welch Referred To Contact Radiology Diagnoses Acute right ankle pain Procedures MRI Ankle Right WO Contrast Lynn King NP [address] [address] Phone: tel: fax: [address] [address] Referral ID Status Reason Start Date Expiration Date Visits Re quested Visits Authorized [id number] Closed 08/01/2020 08/30/2020 1 1 Reason for Visit * Diagnostic Imaging (Routine) - Closed Specialty Diagnoses / Procedures Referred By Kevyn welch Referred To Contact Radiology Diagnoses Acute right ankle pain Procedures MRI Ankle Right WO Contrast Lynn King NP [address] [address] Phone: tel: fax: [address] [address] Referral ID Status Reason Start Date Expiration Date Visits Re quested Visits Authorized [id number] Closed 08/01/2020 08/30/2020 1 1 Encounter Details Date Type Department Care Team (Latest Contact Info) Description 08/07/2020 6:01 AM CDT - 08/07/2020 11:59 PM CDT Hospital Encounter [facility] Radiology at [facility] [address] [place] [address] Charlene Daily MD [address] [facility] [address] [place] [address] Lynn King NP [address] [facility] [address] [place] [address] Acute right ankle pain Discharge Disposition: Discharge to home or self care Social History Tobacco Use Types Packs/Day Years Used Date Smoking Tobacco: Never Smokeless Tobacco: Never Alcohol Use Standard Drinks/Week Comments Yes 0 (1 standard drink = 0.6 oz pur e alcohol) PHQ-2 Answer Date Recorded PHQ-2 Score 0 06/29/2019 Sex and Gender Information Value Date Recorded Sex Assigned at Not on file 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 Gender Identity Not on file Sexual Orientation Not on file 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 Not on file Not on file documented as of this encounter Medications at Time of Discharge aspirin 81 mg enteric coated tablet Take 81 mg by mouth daily cholecalciferol (VITAMIN D-3) 25 mcg (1,000 unit) tablet Take 1,000 Units by mouth daily magnesium 30 mg tablet Take 30 mg by mouth daily multivitamin capsule Take 1 capsule by mouth daily tiZANidine (ZANAFLEX) 4 mg tablet Take 1 tablet (4 mg total) by mouth every 8 (eight) hours as needed for muscle spasms 90 tablet 01/16/2020 vitamin B complex capsule Take 1 capsule by mouth daily documented as of this encounter Discharge Disposition Disposition Code Departure Means Destination Discharge to home or self care documented in this encounter Plan of Treatment Not on file documented as of this encounter Procedures Procedure Name Priority Date/Time Associated Diagnosis Comments MRI ANKLE RIGHT WO CONTRAST Schedule Routine, Read Routine (OP Routine) 08/07/2020 7:06 AM CDT Acute right ankle pain documented in this encounter Results * MRI Ankle Right WO Contrast (08/07/2020 7:06 AM CDT) Anatomical Region Laterality Modality Lower Extremities Right Magnetic Reson ance 08/07/2020 9:05 AM CDT Impressions 08/07/2020 9:19 AM CDT 1. ??Right peroneal brevis and longus tendinopathy and tenosynovitis with partial thickness tear of the peroneus longus just distal to the peroneal tubercle. There is bony hypertrophy of the peroneal tubercle. These findings are directly adjacent to the pain marker. 2. Ossicle adjacent to the posterior medial right talus with edema within the ossicle and cystic change within the adjacent talus. There is mild focal tendinopathy of the adjacent flexor digitorum longus. 3. Unchanged mild right Achilles tendinopathy without tear. 4. Small ankle effusion with unchanged multiloculated fluid extending out of the joint posteriorly. 5. Unchanged mild right posterior tibialis tendinopathy. 6. Chronic sprains of the right deltoid and anterior talofibular ligaments with synovitis in the anterior lateral gutter. Dictated by: Linus Coates M.D. The radiology attending physician has personally reviewed this study, and had reviewed and/or edited this written report and agrees with it. Electronically signed by: Yash Holcomb M.D. Narrative 08/07/2020 9:19 AM CDT EXAMINATION: 1. MR right ankle and hindfoot without contrast HISTORY: ??Right lateral ankle pain, right peroneal tendinopathy FINDINGS: Comparison radiographs dated 07/31/2020 and MRI dated 03/21/2018 have been reviewed. MR examination of the right ankle and hindfoot is performed with an extremity coil. No intravenous or intra-articular contrast was administered for this examination. Sagittal short TR/TE and STIR images and transverse and coronal short TR/TE and fast spin-echo images are obtained. Medially, there is heterotopic ossification adjacent to the posterior medial talus, between the flexor digitorum and flexor hallucis longus. There is edema within the ossicle with adjacent cystic change in the posterior medial talus. There is focal tendinopathy of the flexor digitorum longus just proximal to the level. There is mild tendinopathy of the posterior tibialis at its insertion. The flexor hallucis tendons are normal. There is chronic sprain of the deltoid ligament. The tibial spring and spring ligaments are normal. The tarsal tunnel is normal. Laterally, there is unchanged edema and atrophy of the distal peroneus brevis muscle. There is tendinopathy of the peroneus brevis and longus with tenosynovitis and a partial tear of the peroneus longus just distal to the peroneal tubercle, which is hypertrophied. The superior peroneal retinaculum is intact. The syndesmosis and syndesmotic ligaments are intact. There is chronic sprain of the anterior talofibular ligament with adjacent synovitis. The calcaneofibular and posterior talofibular ligaments are intact. Posteriorly, there is unchanged mild distal Achilles tendinopathy without tear. There is no retrocalcaneal bursitis. Intrinsically, the calcaneus is normal without evidence of a stress fracture. The sinus Tarsi is normal. The plantar fascia is normal. Anteriorly, the ankle extensors are normal. The talar dome is normal without evidence of osteochondral lesion. Small joint effusion with unchanged small multiloculated component extending posteriorly from the joint. The bone marrow signal is normal. Procedure Note Yash Holcomb MD - 08/07/2020 EXAMINATION: 1. MR right ankle and hindfoot without contrast HISTORY: Right lateral ankle pain, right peroneal tendinopathy FINDINGS: Comparison radiographs dated 07/31/2020 and MRI dated 03/21/2018 have been reviewed. MR examination of the right ankle and hindfoot is performed with an extremity coil. No intravenous or intra-articular contrast was administered for this examination. Sagittal short TR/TE and STIR images and transverse and coronal short TR/TE and fast spin-echo images are obtained. Medially, there is heterotopic ossification adjacent to the posterior medial talus, between the flexor digitorum and flexor hallucis longus. There is edema within the ossicle with adjacent cystic change in the posterior medial talus. There is focal tendinopathy of the flexor digitorum longus just proximal to the level. There is mild tendinopathy of the posterior tibialis at its insertion. The flexor hallucis tendons are normal. There is chronic sprain of the deltoid ligament. The tibial spring and spring ligaments are normal. The tarsal tunnel is normal. Laterally, there is unchanged edema and atrophy of the distal peroneus brevis muscle. There is tendinopathy of the peroneus brevis and longus with tenosynovitis and a partial tear of the peroneus longus just distal to the peroneal tubercle, which is hypertrophied. The superior peroneal retinaculum is intact. The syndesmosis and syndesmotic ligaments are intact. There is chronic sprain of the anterior talofibular ligament with adjacent synovitis. The calcaneofibular and posterior talofibular ligaments are intact. Posteriorly, there is unchanged mild distal Achilles tendinopathy without tear. There is no retrocalcaneal bursitis. Intrinsically, the calcaneus is normal without evidence of a stress fracture. The sinus Tarsi is normal. The plantar fascia is normal. Anteriorly, the ankle extensors are normal. The talar dome is normal without evidence of osteochondral lesion. Small joint effusion with unchanged small multiloculated component extending posteriorly from the joint. The bone marrow signal is normal. IMPRESSION: 1. Right peroneal brevis and longus tendinopathy and tenosynovitis with partial thickness tear of the peroneus longus just distal to the peroneal tubercle. There is bony hypertrophy of the peroneal tubercle. These findings are directly adjacent to the pain marker. 2. Ossicle adjacent to the posterior medial right talus with edema within the ossicle and cystic change within the adjacent talus. There is mild focal tendinopathy of the adjacent flexor digitorum longus. 3. Unchanged mild right Achilles tendinopathy without tear. 4. Small ankle effusion with unchanged multiloculated fluid extending out of the joint posteriorly. 5. Unchanged mild right posterior tibialis tendinopathy. 6. Chronic sprains of the right deltoid and anterior talofibular ligaments with synovitis in the anterior lateral gutter. Dictated by: Linus Coates M.D. The radiology attending physician has personally reviewed this study, and had reviewed and/or edited this written report and agrees with it. Electronically signed by: Yash Holcomb M.D. Lynn King NP IMG MRI PROCEDURES Final Resu lt documented in this encounter Visit Diagnoses Diagnosis Acute right ankle pain documented in this encounter Care Teams Director Of Aviation Relationship Specialty Start Date End Date Immanuel Hart MD [address] [place] [address] PCP - General Internal Medicine 07/31/20 documented as of this encounter
--- OUTSIDE RECORDS SUMMARY | 2024-11-06 21:53 | XMS_ITS | Encounter Summary ---
Author Organization [facility] Healthcare Address [address] [place] [address] Care Team Providers Care Assembly Member Name Role Phone Immanuel Hart MD Primary Care Provider [phone] [phone] Reason for Visit * Reason Comments PT Treatment Encounter Details Date Type Department Care Team (Late st Contact Info) Description 12/05/2020 8:30 AM SPARE PERSON Therapy [facility] STAR at [address] [place] [address] [place] [address] [place] [address] Chronic pain of right ankle (Primary Dx) [...] on file Legal Sex Male 6:01 AM SPARE PERSON Gender Identity Not on file Sexual Orientation Not on file 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 male Referring Diagnosis: Chronic pain of right ankle [M25.571, G89.29] Physical therapy movement impairment diagnosis/diagnoses: gait deviations secondary to weakness R gastroc mm from hx of L spine nerve compression Date of Onset: 2017 Referring Practitioner: Laci Perry MD Today's date: 12/05/20 Start Time: 8:30 AM SUBJECTIVE --pt still with R lateral ankle pain intermittently with walking and days of increased activity especially at work. Pain level 1-2/10. Init Mechanism of Injury: back injury 1999 [...] stance phase, with some min cues to decrease overuse of peroneal mm at push off, as well as needs cues for eccentric followed by concentric use of R gastroc mm in mid to late stance phases. In general cued for neutral ankle df withmid to late stance phase of gait. Palpation:pt still with mild tenderness R peroneal tendon insertion which appears to have bone growth --with heel rise, note significant decreased girth [...] in mid to late stance phase 2) researched a home e stim unit for pt to purchase that is belizean stim for strengthening his gastroc mm. Did not do e stim in PT today. 3) performed manual rx for: talocrural jt distraction, and post talar glides grade 4 with PROM of dorsiflexion 4) applied taping with kinesiotape to R gastroc mm to assist with late stance phase eccentric control as well as with concentric contraction for push off. 5) next applied taping with leukotape to prevent excessive eversion at late stance push off, as well as leukotape to encourage mobilization of post talar glide with late stance dorsiflexion. Pt reports this helped to improve gait, relaxed toes more, and relieved lateral ankle pain. 6) not today: pt declined iontophoresis 80 min/min patch to insertion of [...] = each, st = stretch Timed Treatment Gait for 10 minutes Manual rx: 15 min thera ex for 5 min Total of Timed Treatment Codes: 30 minutes untimed rx: ankle/foot taping Ending Pain: 0/10 Stop Time: 9:15 am ASSESSMENT Response to today???s treatment: good PLAN Continue PT with same POC. Short Term Goals: 2 weeks 1. indep with HEP, achieved 2. Decrease gait deviations, progressing Receptionist Clerk Goals: 12-16 weeks 1. 5/5 strength R gluteal mm 2. R gastroc strength 4/5 3. Pt to stand for 60 min without pain 4. Pt to walk for 60 min without pain Keiry Collier, PT E PERSON documented in this encounter Plan of Treatment Not on file documented as of this encounter Visit Diagnoses Diagnosis Chronic pain of right ankle- Primary documented in this encounter Care Teams Assembly Member Relationship Specialty Start Date End Date Immanuel Hart MD [address] [place] [address] PCP - General Internal Medicine 07/31/20 documented as of this encounter
--- OUTSIDE RECORDS SUMMARY | 2024-11-06 21:53 | XMS_ITS | Encounter Summary ---
Author Organization [facility] Healthcare Address [address] [place] [address] Care Team Providers Care Web Consultant Name Role Phone Immanuel Hart MD Primary Care Provider [phone] [phone] Reason for Visit * Reason Comments PT Treatment Encounter Details Date Type Department Care Team (Late st Contact Info) Description 12/26/2020 9:30 AM CARPENTER'S ASSISTANT Therapy [facility] ST[facility] at [address] [place] [address] [place] [address] [place] [address] Chronic pain of right ankle (Primary Dx) [...] on file Legal Sex Male 6:01 AM CARPENTER'S ASSISTANT Gender Identity Not on file Sexual Orientation Not on file 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 male Referring Diagnosis: Chronic pain of right ankle [M25.571, G89.29] Physical therapy movement impairment diagnosis/diagnoses: gait deviations secondary to weakness R gastroc mm from hx of L spine nerve compression Date of Onset: 2017 Referring Practitioner: Laci Perry MD Today's date: 12/26/20 Start Time: 9:30 AM SUBJECTIVE --pt feels the tape helps to relieve his lateral ankle pain but it is a frustrating process taping it on his own. Pain level today 0-1/10. --pt obtained a home EMS unit for gastroc strengthening and brought it in for set up instruction. Init Mechanism of Injury: back injury 1999 [...] nodules as well in the lateral ankle. Med Hx: R ACL repair 2006 Patient Goals: stand, walk and work without pain Subjective Functional Outcome: Lower Extremity Functional Scale: 18% OBJECTIVE Standing Alignment/Posture: pt stands with fairly [...] withmid to late stance phase of gait. (taping helps to decrease gait deviations) Palpation:pt still with mild tenderness R peroneal tendon insertion which appears to have bone growth --with heel rise, note significant decreased girth R compared to L gastroc and only the lateral head M belly is visible/contracts. Pt with trace medial head contraction R Active Range of Motion: ankle inversion, eversion, plantarflexion : WNL ;Dorsiflexion : 0-12 Muscle Length: Gastroc : 0-12 degrees prone Joint Play: midfoot stiffness R Strength (Manual Muscle Test): Anterior Tib: Left 5/5; Right 5/5 Ankle Plantarflexion - closed chain: Left 5/5; Right 3-/5 (and tends to flex knee) Posterior Tib: Left 5/5; Right 5/5 Peroneals: Left 5/5; Right 5/5 EHL: Left 5/5; Right 5/5 FHL: Left 5/5; Right 5/5 Gluteus aneudy: Left 5/5; Right 5/5 Gluteus medius: Left 5/5; Right 5/5 Balance/Proprioception: Single Leg Stance : static: good balance,with less overuse of toe flexors Dynamic: With min challenges to balance TREATMENT 1) reviewed modifications with gait to prevent overuse of peroneal mm with push off, and to improveuse of gastroc and gluteal mm in mid to late stance phase 2) instructed pt in set up of his new home e stim unit for EMS strengthening of his gastroc and TENS to R lateral ankle for pain. Then pt performed gastroc strengthening exercises. 2)not today: performed manual rx for: talocrural jt distraction, and post talar glides grade 4 withPROM of dorsiflexion 3) pt to continue to tape his ankle on his own. Pt to obtain more tape. Exercise/ Activity Date: 10/06 Date: 10/20 Date: [...] st = stretch Timed Treatment Gait for 5 minutes Neuromuscular re-ed for 30 min thera ex for 15 min Total of Timed Treatment Codes: 50 minutes untimed rx: ankle/foot taping Ending Pain: 0/10 Stop Time: 10:20 am ASSESSMENT Response to today???s treatment: good PLAN Continue PT with same POC. Short Term Goals: 2 weeks 1. indep with HEP, achieved 2. Decrease gait deviations, achieved 3. Pt to work on his feet 30 min without pain, not achieved [facility] Goals: 12-16 weeks 1. 5/5 strength R gluteal mm, achieved 2. R gastroc strength 4/5 to decrease gait deviations, decreasing ankle eversion, allowing pt to walk 60 min without pain, progressing but not yet achieved 3. Pt to stand for 60 min without pain on the job, progressing for 20 min but not yet achieved for 60 min 4. R gastroc strength 4/5 to decrease gait deviations, for pt to have to run short distances for his job , not achieved 5. Pt to work on his feet standing and walking for 3-4 hours without pain Keiry Collier, PT ENTER'S ASSISTANT documented in this encounter Plan of Treatment Not on file documented as of this encounter Visit Diagnoses Diagnosis Chronic pain of right ankle- Primary documented in this encounter Care Teams Web Consultant Relationship Specialty Start Date End Date Immanuel Hart MD [address] [place] [address] PCP - General Internal Medicine 07/31/20 documented as of this encounter
--- OUTSIDE RECORDS SUMMARY | 2024-11-06 21:53 | XMS_ITS | Encounter Summary ---
Author Organization [facility] Healthcare Address [address] [place] [address] Care Team Providers Care Coat Padder Name Role Phone Immanuel Hart MD Primary Care Provider [phone] [phone] Reason for Referral * Diagnostic Imaging (Routine) - Closed Specialty Diagnoses / Procedures Referred By Kevyn welch Referred To Contact Diagnoses Acute right ankle pain Procedures X-ray ankle right 3+ views Lynn King NP [address] [facility] [address] [place] [address] Phone: tel: fax: [address] [phone] Referral ID Status Reason Start Date Expiration Date Visits Re quested Visits Authorized [id number] Closed 07/31/2020 08/30/2021 1 1 Reason for Visit * Diagnostic Imaging (Routine) - Closed Specialty Diagnoses / Procedures Referred By Kevyn welch Referred To Contact Diagnoses Acute right ankle pain Procedures X-ray ankle right 3+ views Lynn King NP [address] [facility] [address] [place] [address] Phone: tel: fax: [address] [phone] Referral ID Status Reason Start Date Expiration Date Visits Re quested Visits Authorized [id number] Closed 07/31/2020 08/30/2021 1 1 Encounter Details Date Type Department Care Team (Latest Contact Info) Description 07/31/2020 7:56 AM CDT - 07/31/2020 11:59 PM CDT Hospital Encounter [id number] Radiology [address] [facility] [address] [place] [id number] Angelito Syed MD [address] [facility] [address] [address] [place] [address] Lynn King NP [address] [facility] [address] [place] [address] Acute right ankle pain Discharge Disposition: Discharge [...] on file Legal Sex Male 6:01 AM HEAD IRRIGATOR Gender Identity Not on file Sexual Orientation Not on file 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 Lynn King REHABILITATOR IMG XR PROCEDURES Final Resul t documented in this encounter Visit Diagnoses Diagnosis Acute right ankle pain documented in this encounter Care Teams Coat Padder Relationship Specialty Start Date End Date Immanuel Hart MD [address] [place] [address] PCP - General Internal Medicine 07/31/20 documented as of this encounter
--- OUTSIDE RECORDS SUMMARY | 2024-11-06 21:53 | XMS_ITS | Encounter Summary ---
Author Organization [facility] Healthcare Address [address] [place] [address] Care Team Providers Care Metal Box Maker Name Role Phone Immanuel Hart MD Primary Care Provider [phone] [phone] Reason for Visit * Reason Comments PT Treatment Encounter Details Date Type Department Care Team (Late st Contact Info) Description 10/24/2020 8:00 AM JOB TRACER Therapy [facility] ST[facility] at [address] [place] [address] [place] [address] [place] [address] Chronic pain of right ankle (Primary Dx) [...] on file Legal Sex Male 6:01 AM JOB TRACER Gender Identity Not on file Sexual Orientation Not on file 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 male Referring Diagnosis: Chronic pain of right ankle [M25.571, G89.29] Physical therapy movement impairment diagnosis/diagnoses: gait deviations secondary to weakness R gastroc mm from hx of L spine nerve compression Date of Onset: 2017 Referring Practitioner: Laci Perry MD Today's date: 10/24/20 Start Time: 8:00 AM SUBJECTIVE --pt saw Dr Perry for the nerve conduction testing. Pt still with old nerve damage, nothing new. --overall he feels his R lateral ankle pain has been better. He is using his orthotics and brace inhis work shoes. He has not been able to fit the heel lift in his shoe to try it with the orthotics --pain level 0/10 today and can increase to 2-3/10. --he continue to try to relax his toes with gait. Mechanism of Injury: back injury 1999 and reinjury 2005 and found out had a herniated disc. Had PT and thought was better. In 2015, notes that R gastroc girth was decreased. Had back surgery in 2018,microdiscectomy of L5-S1. After surgery, he had new [...] flexed, with slight hip ER bilat Gait: pt amb with very slight heel whip, with slight increased eversion at push off, slight decreased knee ext and hip ext in late right stance phase, with increased use of all toe flexors in R stance phase Palpation: tenderness R peroneal tendon; nodule noted R medial ankle inferior to medial malleolus --with heel rise, note significant decreased girth R compared to L gastroc and only the lateral head M belly is visible/contracts. Pt with trace medial head contraction R Active Range of Motion: ankle inversion, eversion, plantarflexion : WNL ;Dorsiflexion : 0-5 Muscle Length: Gastroc : 0-5 degrees prone Joint Play: midfoot stiffness R Strength (Manual Muscle Test): Anterior Tib: Left 5/5; Right 5/5 Ankle Plantarflexion - closed chain: Left 5/5; Right 3-/5 (and tends to flex knee) Posterior Tib: Left 5/5; Right 5/5 Peroneals: Left 5/5; Right 5/5 EHL: Left 5/5; Right 5/5 FHL: Left 5/5; Right 5/5 Gluteus aneudy: Left 5/5; Right 4-/5 Gluteus medius: Left 5/5; Right 3+/5 Balance/Proprioception: Single Leg Stance : static: good balance, but requires toe/big toe flexors to overwork Dynamic: With min challenges to balance TREATMENT 1) reviewed use of various options of heel lift, orthotics, and brace/shoe wear 2) reviewed modifications with gait to prevent overuse of peroneal mm with push off 3) reviewed HEP per flow sheet with verbal and manual cues. Pt performed them with guyanese stim for10/10 and 5/5 sec on/off with heel raises, standing wall leans and with seated gastroc/pf with greyTB with blaze resistance at end range. 4) researched home e stim units of low frequency and medium frequency units for pt to purchase and perform the above exercises at home Exercise/ Activity Date: 10/06 Date: 10/20 Date: 10/24 Date: Date: Date: bilat heel raises init 50/50% WB X X SLS wall leans init with cues to keep knee straight bilat and unilat X SL hip abd init x10 Prone hip ext with knee flexed init x10 bridge init SL bridge init with only heel lift on L for now for partial increased WB R Standing gastroc stretch straight and with rotation init Seated gastroc strengthening with marie TB and blaze hold at end range init X eval gastroc length X eval more dynamic SLS Flowsheet [place]: X = performed, x = times/multiply, s = seconds, ea = each, st = stretch Timed Treatment thera ex for 25 minutes Neuromuscular re education with guyanese stim to gastroc for 20 min with Total of Timed Treatment Codes: 45 minutes Ending Pain: 0/10 Stop Time: 8:50 am ASSESSMENT Response to today???s treatment: good PLAN Continue PT with same POC. Short Term Goals: 2 weeks 1. indep with HEP, progressing 2. Decrease gait deviations [facility] Goals: 12-16 weeks 1. 5/5 strength R gluteal mm 2. R gastroc strength 4/5 3. Pt to stand for 60 min without pain 4. Pt to walk for 60 min without pain Keiry Collier, ALY TRACER documented in this encounter Plan of Treatment Not on file documented as of this encounter Visit Diagnoses Diagnosis Chronic pain of right ankle- Primary documented in this encounter Care Teams Metal Box Maker Relationship Specialty Start Date End Date Immanuel Hart MD [address] [place] [address] PCP - General Internal Medicine 07/31/20 documented as of this encounter
--- OUTSIDE RECORDS SUMMARY | 2024-11-06 21:53 | XMS_ITS | Encounter Summary ---
Author Organization [facility] Healthcare Address [address] [place] [address] Care Team Providers Care Card Clothier Name Role Phone Immanuel Hart MD Primary Care Provider [phone] [phone] Encounter Details Date Type Department Care Team (Late st Contact Info) Description 10/01/2020 Telephone [facility] ST[facility] at [address] [phone] [place] [address] [place], [place] [id number] Social History Tobacco Use Types Packs/Day Years Used Date Smoking Tobacco: Never Smokeless Tobacco: Never Alcohol Use Standard Drinks/Week Comments Yes 0 (1 standard drink = 0.6 oz pur e alcohol) PHQ-2 Answer Date Recorded PHQ-2 Score 0 06/29/2019 Sex and Gender Information Value Date Recorded Sex Assigned at Not on file 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 REVIEW Gender Identity Not on file Sexual Orientation Not on file 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 REVIEW documented in this encounter Plan of Treatment Not on file documented as of this encounter Visit Diagnoses Not on filedocumented in this encounter Care Teams Card Clothier Relationship Specialty Start Date End Date Immanuel Hart MD [address] [place] [address] PCP - General Internal Medicine 07/31/20 documented as of this encounter
--- OUTSIDE RECORDS SUMMARY | 2024-11-06 21:53 | XMS_ITS | Encounter Summary ---
Author Organization [facility] Healthcare Address [address] [place] [address] Care Team Providers Care Online Content Editor Name Role Phone Immanuel Hart MD Primary Care Provider [phone] [phone] Reason for Visit * Reason Comments PT Treatment Encounter Details Date Type Department Care Team (Late st Contact Info) Description 10/20/2020 10:30 AM SENIOR CUSTOMER SERVICE REPRESENTATIVE Therapy [facility] ST[facility] at [address] [place] [address] [place] [address] [place] [address] Chronic pain of right ankle (Primary Dx) [...] on file Legal Sex Male 6:01 AM SENIOR CUSTOMER SERVICE REPRESENTATIVE Gender Identity Not on file Sexual Orientation Not on file 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 male Referring Diagnosis: Chronic pain of right ankle [M25.571, G89.29] Physical therapy movement impairment diagnosis/diagnoses: gait deviations secondary to weakness R gastroc mm from hx of L spine nerve compression Date of Onset: 2017 Referring Practitioner: Laci Perry MD Today's date: 10/20/20 Start Time: 10:30 AM SUBJECTIVE --pt reports his foot has been doing ok. 0/10 pain level today, pain can increase to 3/10. He reports he has been trying to relax his toes with gait. Pt has the nerve test on Tuesday. --pt obtained the OTC orthotics and he hated them at first and is unable to wear them at all times due to the tight fit of the shoes, --pt tried the heel lift and unsure if it helped his pain. --he has not pain much the last 3 days. Last week he was on his feet a lot for work and had the brace on. --he reports he has a little lateral ankle pain with the bilat heel raises Mechanism of Injury: back injury 1999 and [...] wear 2) reviewed modifications with gait to improve use of gluteal and gastroc mm and decrease overuse of toe flexors and peroneal mm, with use of heel lift 3) reviewed HEP per flow sheet with verbal and manual cues. See also additions. 4) init use of e stim to R medial gastroc head with Citizen [place] stim for 10/20 on/off cycle, for 15 minwith heel raises, standing wall leans and with seated gastroc/pf with marie TB with blaze resistance at end range. Exercise/ Activity Date: 10/06 Date: 10/20 Date: Date: Date: Date: bilat heel raises init 50/50% WB X SLS wall leans init with cues to keep knee straight bilat and unilat SL hip abd init x10 Prone hip ext with knee flexed init x10 bridge init SL bridge init with only heel lift on L for now for partial increased WB R Standing gastroc stretch straight and with rotation init Seated gastroc strengthening with marie TB and blaze hold at end range init eval gastroc length X eval more dynamic SLS Flowsheet [place]: X = performed, x = times/multiply, s = seconds, ea = each, st = stretch Timed Treatment thera ex for 45 minutes Total of Timed Treatment Codes: 45 minutes untimed rx: E stim on his own with ex after PT reviewed and progressed HEP Ending Pain: 0/10 Stop Time: 11:30 am ASSESSMENT Response to today???s treatment: good PLAN Continue PT with same POC. Short Term Goals: 2 weeks 1. indep with HEP, progressing 2. Decrease gait deviations Vice President Fixed Income Goals: 12-16 weeks 1. 5/5 strength R gluteal mm 2. R gastroc strength 4/5 3. Pt to stand for 60 min without pain 4. Pt to walk for 60 min without pain Keiry Collier, PT OR CUSTOMER SERVICE REPRESENTATIVE documented in this encounter Plan of Treatment Not on file documented as of this encounter Visit Diagnoses Diagnosis Chronic pain of right ankle- Primary documented in this encounter Care Teams Online Content Editor Relationship Specialty Start Date End Date Immanuel Hart MD [address] [place] [address] PCP - General Internal Medicine 07/31/20 documented as of this encounter
--- OUTSIDE RECORDS SUMMARY | 2024-11-06 21:53 | XMS_ITS | Encounter Summary ---
Author Organization [facility] Healthcare Address [address] [place] [address] Care Team Providers Care Sustainability Project Coordinator Name Role Phone Immanuel Hart MD Primary Care Provider [phone] [phone] Reason for Visit * Reason Onset Date Comments PT Discharge 05/29/2021 Encounter Details Date Type Department Care Team (Late st Contact Info) Description 05/29/2021 Documentation [facility] at [address] [place] [address] [place] [address] [place] [address] PT Discharge Social History Tobacco Use Types Packs/Day Years Used Date Smoking Tobacco: Never Smokeless Tobacco: Never Alcohol Use Standard Drinks/Week Comments Yes 0 (1 standard drink = 0.6 oz pur e alcohol) PHQ-2 Answer Date Recorded PHQ-2 Score 0 06/29/2019 Sex and Gender Information Value Date Recorded Sex Assigned at Not on file 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 / male Referring Diagnosis: Chronic pain of right ankle [M25.571, G89.29] Physical therapy movement impairment diagnosis/diagnoses: gait deviations secondary to weakness R gastroc mm from hx of L spine nerve compression Referring Practitioner: Laci Perry MD Today's date: 05/29/2021 Last Visit: 12/19/20 ASSESSMENT At time of last visit, pt's status as follows: --pt still with 1-2/10 R lateral ankle pain with being on his feet long periods. Pt no longer with medial ankle pain. Pt feels the ankle taping helped but was unable to reproduce it on his own. He has been trying to wean completely from the ankle brace but feels sore when he doesn't wear it with increased activity level days like at work. --pt ordered a home israeli e stim unit and will bring it to the next PT visit to learn how to use it. Short Term Goals: 2 weeks 1. indep with HEP, achieved 2. Decrease gait deviations, progressing ?? Half-Way Goals: 12-16 weeks 1. 5/5 strength R gluteal mm 2. R gastroc strength 4/5 3. Pt to stand for 60 min without pain 4. Pt to walk for 60 min without pain PLAN The patient has discontinued coming to therapy or has elected to not schedule further appointments.Plan is to discontinue physical therapy treatment. Keiry Collier, PT documented in this encounter Plan of Treatment Not on file documented as of this encounter Visit Diagnoses Diagnosis Chronic pain of right ankle- Primary documented in this encounter Care Teams Sustainability Project Coordinator Relationship Specialty Start Date End Date Immanuel Hart MD [address] [place] [address] PCP - General Internal Medicine 07/31/20 documented as of this encounter
--- OUTSIDE RECORDS SUMMARY | 2024-11-06 21:53 | XMS_ITS | Encounter Summary ---
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 Gender Identity Not on file Sexual Orientation Not on file 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 Received a DWI. [employer] referred me for assessment as part of process for my job. Previous mental health treatment: (Inpatient/outpatient, when, where, and how many admissions in past year): none Next appointment with psychiatrist: na Next appointment with therapist/counselor: laura Referral source: Antonina Guzman Contact number: ; W: [phone] LETHALITY ASSESSMENT Current suicide ideation: Denied Prior Attempts: No Means/access: Denies Suicidal Ideation in the past two weeks? Denies, access the following: Means/access: Denies Protective Factors (Recent): Identifies reasons for living, Responsibility to family/others; livingwith family, Supportive social network or family and Engaged in work or school Other Protective Factors (Describe): na Activating Events (Recent): Denies Self Mutilation: No Violent behavior: Denied Homicidal Ideation: Denied MOOD SYMPTOMS Denies any mood issues Frequency/Time Frame: na Sleep: Disrupted, past 3 weeks since receiving the DWI, normally good How many hours in 24 hour period? 4-5 Appetite (Timeframe): Fluctuates since having Covid in 2019 No changes PSYCHOTIC SYMPTOMS Delusions: Denies Paranoia: Denies Hallucinations: Denies Insight (into psychotic symptoms): N/A ANXIETY SYMPTOMS Anxiety/worry and Restlessness, related to job at times and with present situation TRAUMA Have you or anyone close to you ever witnessed or experienced the following traumatic events?: Works in [employer] now. Has worked with violent offenders in past. Has experienced negative situations, has second guessed self many times but nothing keeping him awake at night. Describe: (include timeline and if seeking treatment currently): NA ABUSE: Physical: denies, Emotional: denies, Neglect: denies, Sexual: denies and Exploitation: denies Symptoms: Denies Smoking Status: Denies MENTAL STATUS EXAM Appearance/hygiene: Appropriate Orientation: Alert and oriented x4 Affect: Normal Speech: Clear Insight: good Thought process: Coherent Judgement: good Behavior: Cooperative Intellectual Functioning: WNL Performs ADL's: Yes Independent Reads: Yes Writes: Yes MEDICAL HISTORY Medical Conditions: No Medication Compliant: Patient denies any home medications Assistive Medical Devices: none PCP/last visit: Couple months ago Allergies (medications, food, contact items, and describe reaction): NKDA Medications (include dosage and frequency): none Pharmacy: [facility] [place] PSYCHOSOCIAL: (Describe: life situation, highest level of educations, christian affiliation, family history of mental illness/substance abuse, i.e.) Alejo Slade is a 41 y.o. White male who was born and raised in [place]. Patient's gender assigned at was male and currently identifies as a male. Patient prefers he/him/his pronouns. Patient currently lives alone. Shares custody of 3 children. Patient has 1 siblings. Patient has3 children. Patient completed 16 years of school. Patient states their buddhist preference is Tenriism. Patient is currently working at [employer] for 20 years. Currently in [employer]. Patient reports family history of mental illness: None. Patient reports family history of suicide attempts or completions: None. Patient reports family history of substance use: None. Alcohol Use: Yes , Alcohol audit completed. States he usually drinks with friends. Could be nothing1 week then 1-3 times(the most) a week. Average is 2 beers and 2 shots of liquor. Illegal Drug Use: No Abuse of prescription drug(s): No Legal issues: DWI Serve in : No Benefits: No DFS/DHSS involvement: No Guardian: No State appointed guardian: No Mental Health POA/DPOA: No/Denies Financial stressors:Denies PROVISIONAL DIAGNOSIS: F10.10 Alcohol abuse CASE SUMMARY/ADDITIONAL COMMENTS: Patient presents I got pulled over for speeding and refused the breathalyzer. Received a DWI. [employer] referred me for assessment as part of process for my job. . Patient denies suicidal thoughts. Patient denies homicidal thoughts. Patient denies auditory or visual hallucinations. Patient does not needoutside providers at this time. F/U with EAP.. Patient is not on medications. Patient admits to alcohol use. Patient denies substance abuse. [facility] talked with PAULO Cali regarding finding. ADDITIONAL ASSESSMENTS: Audit Alcohol Use Disorders Identification Test AUDIT Alcohol Use Disorders Identification Test How often do you have a drink containing alcohol? : 2 to 4 times a month How many drinks containing alcohol do you have on a typical day when you are drinking?: 3 or 4 How often do you have six or more drinks on one occasion? : Never How often during the last year have you found that you were not able to stop drinking once you had started? : Never How often during the last year have you failed to do what was normally expected from you beacuse ofdrinking? : Never How often during the last year have you needed a first drink in the morning to get yourself going after a heavy drinking session? : Never How often during the last year have you had a feeling of guilt or remorse after drinking? : Never How often during the last year have you been unable to remember what happened the night before because of your drinking? : Never Have you or someone else been injured as a result of your drinking? : No Has a relative or friend or a doctor or another health worker been concerned about your drinking orsuggested you cut down? : No Audit Total Score AUDIT Total Score Total: 3 Maxine Fragoso RN documented in this encounter Plan of Treatment Not on file documented as of this encounter Visit Diagnoses Not on filedocumented in this encounter Care Teams Set Up And Charger Relationship Specialty Start Date End Date Immanuel Hart MD [address] [place] [address] PCP - General Internal Medicine 07/31/20 documented as of this encounter
--- OUTSIDE RECORDS SUMMARY | 2024-11-06 21:53 | XMS_ITS | Encounter Summary ---
Author Organization [facility] Address [address] [place] [address] Phone Care Team Providers Care Prior Authorization Nurse Name Role Phone Immanuel Hart MD Primary Care Provider [phone] [phone] Reason for Visit * Neurology (Routine) - Closed Specialty Diagnoses / Procedures Referred By Contac t Referred To Contact Diagnoses Sciatica of right side Procedures EMG/NCV - Laci Perry MD [address] [place] [address] Phone: tel: fax: [facility] Orthopaedic Surgery [address] [place] [address] Phone: tel: fax: Referral ID Status Reason Start Date Expiration Date Visits Re quested Visits Authorized [id number] Closed 08/27/2020 09/26/2021 1 1 Encounter Details Date Type Department Care Team (Late st Contact Info) Description 10/22/2020 3:15 PM MEDICAL DOSIMETRIST Diagnostic [facility] Orthopaedic Surgery [facility] Medical Office Building [address] [place] [id number] Laci Perry MD [address] [place] [address] Sciatica of right side (Primary Dx) Social [...] file Legal Sex Male 6:01 AM MEDICAL DOSIMETRIST Gender Identity Not on file Sexual Orientation Not on file 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 The report can be accessed in the chart by going to the Media section.. CAL DOSIMETRIST documented in this encounter Plan of Treatment Not on file documented as of this encounter Procedures Procedure Name Priority Date/Time Associated Diagnosis Comments EMG/NCV Routine 10/22/2020 Sciatica of right side documented in this encounter Results * EMG/NCV - (10/22/2020) Anatomical Region Laterality Modality Other us Laci Perry MD NEUROLOGY ORDERABLES Final Result documented in this encounter Visit Diagnoses Diagnosis Sciatica of right side- Primary documented in this encounter Historical Medications * This list may reflect changes made after this encounter. Medication Sig Dispense Quantity Refills Last Filled Start D ate End Date ketoconazole (NIZORAL) 2 % shampoo 10/08/2020 added in this encounter Care Teams Prior Authorization Nurse Relationship Specialty Start Date End Date Immanuel Hart MD [address] [place] [address] PCP - General Internal Medicine 07/31/20 documented as of this encounter
--- OUTSIDE RECORDS SUMMARY | 2024-11-06 21:53 | XMS_ITS | Encounter Summary ---
Author Organization [facility] Address [address] [place] [address] Phone Care Team Providers Care It Program Engagement Director Name Role Phone Immanuel Hart MD Primary Care Provider [phone] [phone] Encounter Details Date Type Department Care Team (Late st Contact Info) Description 07/31/2020 Orders Only [facility] Orthopaedic Surgery [address] [place] [address] Medical Office [address] [place] [address] Maribel Landry RMA Social History Tobacco Use Types Packs/Day Years Used Date Smoking Tobacco: Never Smokeless Tobacco: Never Alcohol Use Standard Drinks/Week Comments Yes 0 (1 standard drink = 0.6 oz pur e alcohol) PHQ-2 Answer Date Recorded PHQ-2 Score 0 06/29/2019 Sex and Gender Information Value Date Recorded Sex Assigned at Not on file 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
--- OUTSIDE RECORDS SUMMARY | 2024-11-06 21:53 | XMS_ITS | Encounter Summary ---
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 male Referring Diagnosis: Chronic pain of right ankle [M25.571, G89.29] Physical therapy movement impairment diagnosis/diagnoses: gait deviations secondary to weakness R gastroc mm from hx of L spine nerve compression Date of Onset: 2017 Referring Practitioner: Laci Perry MD Today's date: 11/03/20 Start Time: 9:50 AM SUBJECTIVE --his R ankle feels pretty good. 0/10 pain level. No real change in strength since last visit. Init Mechanism of Injury: back injury 1999 [...] and manual cues. Pt performed them with ecuadorean stim for5/5 sec on/off with heel raises, standing wall leans and with seated gastroc/pf, with blaze resistance at end range PF with knee straight, and with SL lift. 4) again recommmended home e stim units of low frequency and medium frequency units for pt to purchase and perform the above exercises at home, as well as with gait so that he is able to work on this5-7 days per week vs 1-2 times per week. Exercise/ Activity Date: 10/06 Date: 10/20 Date: 10/24 Date: 10/29 Date: 11/03 Date: bilat heel raises init 50/50% WB X X with e stim X with e stim for 10 min X Seated heel raises init with e stim init with e stim with 25# kettlebell 5 min X SLS wall leans init with cues to keep knee straight bilat and unilat X with e stim X, with e stim 3min X SL hip abd init x10 Prone hip ext with knee flexed init x10 bridge init SL bridge init with only heel lift on L for now for partial increased WB R X alternating heel liftswith e stim 2 min X Standing gastroc stretch straight and with rotation init reviewed Seated gastroc strengthening with marie TB and blaze hold at end range init X with e xtim X X SLS with lift With 5# kettle wilcox with e stim X With e stim 5 min X SLS with superman reaches init with e stim x 5 min X eval gastroc length X eval more dynamic SLS init gait X X Flowsheet [place]: X = performed, x = times/multiply, s = seconds, ea = each, st = stretch Timed Treatment thera ex for 10 minutes Neuromuscular re education with ecuadorean stim to gastroc for 30 min Gait for 5 min Total of Timed Treatment Codes: 45 minutes Ending Pain: 0/10 Stop Time: 10:00 am ASSESSMENT Response to today???s treatment: good PLAN Continue PT with same POC. Short Term Goals: 2 weeks 1. indep with HEP, progressing 2. Decrease gait deviations Snf Goals: 12-16 weeks 1. 5/5 strength R gluteal mm 2. R gastroc strength 4/5 3. Pt to stand for 60 min without pain 4. Pt to walk for 60 min without pain Keiry Collier, PT EL FILLER documented in this encounter Plan of Treatment Not on file documented as of this encounter Visit Diagnoses Diagnosis Chronic pain of right ankle- Primary documented in this encounter Care Teams Pocket Maker Relationship Specialty Start Date End Date Immanuel Hart MD [address] [place] [address] PCP - General Internal Medicine 07/31/20 documented as of this encounter
--- OUTSIDE RECORDS SUMMARY | 2024-11-06 21:53 | XMS_ITS | Encounter Summary ---
Author Organization [facility] Address [address] [place] [address] Phone Care Team Providers Care Hip Hop Performers Name Role Phone Immanuel Hart MD Primary Care Provider [phone] [phone] Reason for Referral * Consultation (Routine) - Closed Specialty Diagnoses / Procedures Referred By Contac t Referred To Contact Physical Therapy Diagnoses Chronic pain of right ankle Laci Perry MD [address] [facility] /[address] [place] [address] Phone: tel: fax: [facility] at [address] [place] [address] Phone: tel: fax: Referral ID Status Reason Start Date Expiration Date V isits Requested Visits Authorized [id number] Closed Specialty Services Required 08/27/2020 09/26/2021 8 8 Question Answer PTRFR PT Evaluate and Treat Reason for Visit Right ankle instability. History of chronic/old right S1 radiculopathy with calf atrophy. Therapy options discussed with patient? Yes Location provided for therapy services is: Patient requested/Patient preferred Please select the performing region: [facility] [[id number]] Please select the performing department: [facility] [[id number]] # of visits: 8 Comments Keiry Collier PT Encounter Details Date Type Department Care Team (Late st Contact Info) Description 08/27/2020 8:40 AM CDT Office Visit [facility] Orthopaedic Surgery [address] [facility] Medical Office Building [address] [place] [address] Laci Perry MD [address] [facility] [address] Chronic pain of right ankle (Primary Dx) [...] on file 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 male with history of right lower extremity weakness, due to lumbar radiculopathy, status post micro diskectomy 2016. He presents for follow-up today of right calf weakness and trophy and right ankle catching and mild pain/tenderness. Patient states since his last visit one month ago pain has moderately decreased which he contributes to wearing a soft ankle brace throughout the day and night. Patient states he has not done any specific PT for this problem. He states he has fullness at the medial and lateral aspect of the ankle with mild tenderness to palpation. He has been offered surgery, but is hoping for an alternative treatment plan. The patient has a current medication list which includes the following prescription(s): aspirin, cholecalciferol (VITAMIN D-3), magnesium, multivitamin, tizanidine (ZANAFLEX), and vitamin b complex. ROS: Negative except stated above PHYSICAL EXAMINATION CONSTITUTIONAL: Well-appearing, in no apparent [...] the of the right foot and ankle. Achilles reflex 1+ on left, absenton right REVIEW OF IMAGING / STUDIES: EXAMINATION: 1. MR right ankle and hindfoot without contrast ?? HISTORY: Right lateral ankle pain, right peroneal tendinopathy ?? FINDINGS: Comparison radiographs dated 07/31/2020 and MRI dated 03/21/2018 have been reviewed. MR examination of the right ankle and hindfoot is performed with an extremity coil. No intravenous or intra-articular contrast was administered for this examination. Sagittal short TR/TE and STIR images and transverse and coronal short TR/TE and fast spin-echo images are obtained. ?? Medially, there is heterotopic ossification adjacent to [...] are normal. The tarsal tunnel is normal. ?? Laterally, there is unchanged edema and atrophy [...] calcaneofibular and posterior talofibular ligaments are intact. ?? Posteriorly, there is unchanged mild distal Achilles tendinopathy without tear. There is no retrocalcaneal bursitis. Intrinsically, the calcaneus is normal without evidence of a stress fracture. The sinus Tarsi is normal. The plantar fascia is normal. ?? Anteriorly, the ankle extensors are normal. The talar dome is normal without evidence of osteochondral lesion. Small joint effusion with unchanged small multiloculated component extending posteriorly from the joint. The bone marrow signal is normal. ?? IMPRESSION: 1. Right peroneal brevis and longus [...] with synovitis in the anterior lateral gutter. ?? IMPRESSION / DIAGNOSIS: 1.??Right distal Achilles tendinopathy. 2. Chronic medial right ankle sprain. 3. Chronic lateral right ankle sprain TREATMENT / PLAN: We discussed history, exam, imaging findings and working diagnosis. We discussed findings on MRI obtained on 07/31/2020. Recommend physical therapy for right ankle to focus on strength, proprioceptionand balance. Recommend EMG/NCS for progressive calf atrophy and weakness. He voices agreement with the plan. All questions were answered. Orders Placed This Encounter Procedures ??? Ambulatory referral order to Physical Therapy - FOLLOW UP: Schedule EMG Attending Attestation: The above patient was seen and evaluated with Dr. Leo Lo. We discussed the case and I agree with the note as documented above. Laci Perry MD I spent 25 minutes face to face with the patient with > 50% of the time spent on counseling, education and coordination of care. Laci Perry MD [facility] Orthopedics Division of Physical Medicine and Rehabilitation Portions of this note were dictated using M*Modal Fluency Direct speech recognition software. Please excuse any general maintenance mechanic errors. documented in this encounter Plan of Treatment Scheduled Referrals Name Type Priority Associated Diagnoses Order Schedule Ambulatory referral order to Physical Therapy - Outpatient Referral Routine Chronic pain of right ankle Expected: 09/10/2020 (Approximate), Expires: 08/27/2021 documented as of this encounter Visit Diagnoses Diagnosis Chronic pain of right ankle- Primary documented in this encounter Care Teams Hip Hop Performers Relationship Specialty Start Date End Date Immanuel Hart MD [address] [place] [address] PCP - General Internal Medicine 07/31/20 documented as of this encounter
--- OUTSIDE RECORDS SUMMARY | 2024-11-06 21:53 | XMS_ITS | Encounter Summary ---
Author Organization [facility] Address [address] [facility] [address] [place] [address] Care Team Providers Care Car Audio Installer Name Role Phone Immanuel Hart MD Primary Care Provider [phone] [phone] Encounter Details Date Type Department Care Team (Late st Contact Info) Description 12/11/2020 Orders Only [facility] Cardiology [address] [facility] [address] [place] [address] ProviderAlexia MD [address] [place], [place] [id number] Social History Tobacco Use Types Packs/Day Years Used Date Smoking Tobacco: Never Smokeless Tobacco: Never Alcohol Use Standard Drinks/Week Comments Yes 0 (1 standard drink = 0.6 oz pur e alcohol) PHQ-2 Answer Date Recorded PHQ-2 Score 0 06/29/2019 Sex and Gender Information Value Date Recorded Sex Assigned at Not on file Legal Sex Male 6: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 Gender Identity Not on file Sexual Orientation Not on file 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 Not on file Not on file documented as of this encounter Plan of Treatment Not on file documented as of this encounter Procedures Procedure Name Priority Date/Time Associated Diagnosis Comments CARDIOLOGY DOCUMENT SCAN Routine 12/11/2020 documented in this encounter Results * SCAN - CARDIOLOGY (12/11/2020) Anatomical Region Laterality Modality Other Historical Provider [facility] RADHA PEREZ Final Result documented in this encounter Visit Diagnoses Not on filedocumented in this encounter Care Teams Car Audio Installer Relationship Specialty Start Date End Date Immanuel Hart MD [address] [place] [address] PCP - General Internal Medicine 07/31/20 documented as of this encounter
--- OUTSIDE RECORDS SUMMARY | 2024-11-06 21:53 | XMS_ITS | Encounter Summary ---
Author Organization [facility] Address [address] [place] [address] Care Team Providers Care Hazardous Substances Engineer Name Role Phone Immanuel Hart MD Primary Care Provider [phone] Reason for Visit * Reason Comments PT Treatment Encounter Details Date Type Department Care Team (Late st Contact Info) Description 10/27/2020 9:45 AM BARGE LOADER Therapy [facility] at [address] [place] [id number] [place] [address] [place] [address] Chronic pain of right ankle (Primary Dx) [...] on file Legal Sex Male 6:01 AM BARGE LOADER Gender Identity Not on file Sexual Orientation Not on file 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 male Referring Diagnosis: Chronic pain of right ankle [M25.571, G89.29] Physical therapy movement impairment diagnosis/diagnoses: gait deviations secondary to weakness R gastroc mm from hx of L spine nerve compression Date of Onset: 2017 Referring Practitioner: Laci Perry MD Today's date: 10/27/20 Start Time: 9:50 AM SUBJECTIVE --he feels his ankle pain is decreasing. He forgot to wear his brace to work Mechanism of Injury: back injury 1999 and [...] and manual cues. Pt performed them with bahraini stim for5/5 sec on/off with heel raises, [...] 50/50% WB X X with e stim SLS wall leans init with cues to keep knee straight bilat and unilat X with e stim SL hip abd init x10 Prone hip ext with knee flexed init x10 bridge init SL bridge init with only heel lift on L for now for partial increased WB R Standing gastroc stretch straight and with rotation init Seated gastroc strengthening with marie TB and blaze hold at end range init X with e xtim SLS with lift With 5# kettle wilcox with e stim eval gastroc length X eval more dynamic SLS init gait X Flowsheet Machado: X = performed, x = times/multiply, s = seconds, ea = each, st = stretch Timed Treatment thera ex for 25 minutes Neuromuscular re education with bahraini stim to gastroc for 20 min with Total of Timed Treatment Codes: 45 minutes Ending Pain: 0/10 Stop Time: 10:40 am ASSESSMENT Response to today???s treatment: good PLAN Continue PT with same POC. Short Term Goals: 2 weeks 1. indep with HEP, progressing 2. Decrease gait deviations Automatic Line Set Up Mechanic Goals: 12-16 weeks 1. 5/5 strength R gluteal mm 2. R gastroc strength 4/5 3. Pt to stand for 60 min without pain 4. Pt to walk for 60 min without pain Keiry Collier, PT E LOADER documented in this encounter Plan of Treatment Not on file documented as of this encounter Visit Diagnoses Diagnosis Chronic pain of right ankle- Primary documented in this encounter Care Teams Hazardous Substances Engineer Relationship Specialty Start Date End Date Immanuel Hart MD [address] [place] [address] PCP - General Internal Medicine 07/31/20 documented as of this encounter
--- OUTSIDE RECORDS SUMMARY | 2024-11-06 21:53 | XMS_ITS | Encounter Summary ---
Author Organization [facility] Address [address] [facility] [address] [place] [address] Care Team Providers Care Restaurant Manager Name Role Phone Immanuel Hart MD Primary Care Provider [phone] Encounter Details Date Type Department Care Team (Late st Contact Info) Description 10/06/2020 Orders Only [facility] Cardiology [address] [address] [address] [place] [address] ProviderAlexia MD [address] [place] [address] Social History Tobacco Use Types Packs/Day Years Used Date Smoking Tobacco: Never Smokeless Tobacco: Never Alcohol Use Standard Drinks/Week Comments Yes 0 (1 standard drink = 0.6 oz pur e alcohol) PHQ-2 Answer Date Recorded PHQ-2 Score 0 06/29/2019 Sex and Gender Information Value Date Recorded Sex Assigned at Not on file Legal Sex Male 6:01 AM PSYCHIATRIC TECHNICIAN ASSISTANT Gender Identity Not on file Sexual Orientation Not on file 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 file Not on file documented as of this encounter Plan of Treatment Not on file documented as of this encounter Procedures Procedure Name Priority Date/Time Associated Diagnosis Comments CARDIOLOGY DOCUMENT SCAN Routine 10/06/2020 documented in this encounter Results * SCAN - CARDIOLOGY (10/06/2020) Anatomical Region Laterality Modality Other Historical Provider [facility] C[facility] RADHA PEREZ Final Result documented in this encounter Visit Diagnoses Not on filedocumented in this encounter Care Teams Restaurant Manager Relationship Specialty Start Date End Date Immanuel Hart MD [address] [place] [address] PCP - General Internal Medicine 07/31/20 documented as of this encounter
--- OUTSIDE RECORDS SUMMARY | 2024-11-06 21:53 | XMS_ITS | Encounter Summary ---
Author Organization [facility] [employer] [facility] Address [address] [place] [address] Phone Care Team Providers Care Finish Filer Name Role Phone Immanuel Hart MD Primary Care Provider [phone] [phone] Reason for Referral * Diagnostic Imaging (Routine) - Closed Specialty Diagnoses / Procedures Referred By Contac t Referred To Contact Radiology Diagnoses Acute right ankle pain Procedures MRI Ankle Right WO Contrast Lynn King NP [address] [facility] [address] [place] [address] Phone: tel: fax: [facility] [address] [place] [address] Referral ID Status Reason Start Date Expiration Date Visits Re quested Visits Authorized [id number] Closed 08/01/2020 08/30/2020 1 1 Encounter Details Date Type Department Care Team (Late st Contact Info) Description 07/31/2020 Orders Only [facility] Orthopaedic Surgery [address] [facility] [address] [place] [address] Maribel Landry RMA Acute right ankle pain (Primary Dx) Social History Tobacco Use Types Packs/Day Years Used Date Smoking Tobacco: Never Smokeless Tobacco: Never Alcohol Use Standard Drinks/Week Comments Yes 0 (1 standard drink = 0.6 oz pur e alcohol) PHQ-2 Answer Date Recorded PHQ-2 Score 0 06/29/2019 Sex and Gender Information Value Date Recorded Sex Assigned at Not on file Legal Sex Male 6:01 AM WEB PAGE DEVELOPER Gender Identity Not on file Sexual Orientation Not on file 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 Lynn King CELL BUILDER IMG MRI PROCEDURES Final Resu lt documented in this encounter Visit Diagnoses Diagnosis Acute right ankle pain- Primary Acute right ankle pain documented in this encounter Care Teams Finish Filer Relationship Specialty Start Date End Date Immanuel Hart MD [address] [place] [address] PCP - General Internal Medicine 07/31/20 documented as of this encounter
--- OUTSIDE RECORDS SUMMARY | 2024-11-06 21:53 | XMS_ITS | Encounter Summary ---
Author Organization [facility] Healthcare Address [address] [place] [address] Care Team Providers Care Light Oil Operator Name Role Phone Immanuel Hart MD Primary Care Provider [phone] Reason for Visit * Reason Comments PT Initial Eval * Consultation (Routine) - Closed Specialty Diagnoses / Procedures Referred By Contac t Referred To Contact Physical Therapy Diagnoses Chronic pain of right ankle Laci Perry MD [address] [facility] [address] [place] [address] Phone: tel: fax: [facility] at [address] [address] Phone: tel: fax: Referral ID Status Reason Start Date Expiration Date V isits Requested Visits Authorized [id number] Closed Specialty Services Required 08/27/2020 09/26/2021 8 8 Encounter Details Date Type Department Care Team (Late st Contact Info) Description 10/06/2020 12:45 PM PHP MYSQL DEVELOPER Therapy [facility] at [address] [id number] [place] [address] [place] [address] Chronic pain of right ankle (Primary Dx) [...] on file Legal Sex Male 6:01 AM PHP MYSQL DEVELOPER Gender Identity Not on file Sexual Orientation Not on file 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 male Referring Diagnosis: Chronic pain of right ankle [M25.571, G89.29] Date of Onset: 2017 Referring Practitioner: Laci Perry MD Today's date: 10/06/20 Start Time: 12:45 PM Medical screening was completed and the patient is appropriate for physical therapy. SUBJECTIVE Chief Complaint: currently he has no pain. When he walks on it, it is sore. He was given an ASO brace Mechanism of Injury: back injury 1999 and [...] 10/22/20. Med Hx: R ACL repair 2006 Pain Location: lateral anle Current Intensity: 0/10 Minimal Intensity: 0/10 Maximal Intensity: 4/10 (using 0-10 numerical scale) Aggravating factors: walking, standing Relieving factors: resting Recreational interests: taking care of kids. Physical Job requirements: walking, standing, sitting Patient Goals: stand, walk and work without pain Subjective Functional Outcome: Lower Extremity Functional Scale: 21.25% OBJECTIVE Patient is able to ambulate independently or modified independently: Patient is able to transfer independently or modified independently. Standing Alignment/Posture: pt stands with fairly neutral [...] R medial ankle inferior to medial malleolus Active Range of Motion: ankle inversion, eversion, plantarflexion : WNL Dorsiflexion : N/T Muscle Length: Gastroc : N/T Joint Play: midfoot stiffness R Strength (Manual Muscle Test): Anterior Tib: Left 5/5; Right 5/5 Ankle Plantarflexion - closed chain: Left 5/5; Right 3-/5 (and tends to flex knee) Posterior Tib: Left 5/5; Right 5/5 Peroneals: Left 5/5; Right 5/5 EHL: Left 5/5; Right 5/5 FHL: Left 5/5; Right 5/5 Gluteus aneudy: Left 5/5; Right 4-/5 Gluteus medius: Left 5/5; Right 3+/5 Swelling: none Balance/Proprioception: Single Leg Stance : static: good balance, but requires toe/big toe flexors to overwork Dynamic: With min challenges to balance Fall Risk Screening Is the patient > 65 year of age? No (40 y.o.) Is the reason for the visit related to balance or falls? No Does the patient have a history of neurological impairment? Yes Score > 4 on Stay Independent brochure? YES/NO/N/A: N/A TREATMENT 1) discussed possible use of OTC orthotics to avoid excessive closed chain ev/inv ROM 2) cut heel lift for R shoe to assist with tibial forward movement due to weak gastroc mm and overuse of toe flexors and peroneal mm/tendons 3) instructed in modifications with gait to improve use of gluteal and gastroc mm and decrease overuse of toe flexors and peroneal mm, with use of heel lift 4) pt to try various combinations of use of heel lift, OTC orthotics, and/or ASO brace 5) instructed in HEP per flow sheet to address above problems Exercise/ Activity Date: 10/06 Date: Date: Date: Date: Date: bilat heel raises init 50/50% WB SLS wall leans init with cues to keep knee straight SL hip abd init x10 Prone hip ext with knee flexed init x10 bridge init SL bridge init with only heel lift on L for now for partial increased WB R eval gastroc length eval more dynamic SLS Flowsheet Machado: X = performed, x = times/multiply, s = seconds, ea = each, st = stretch Timed Treatment gait for 15 minutes thera ex for 30 minutes Total of Timed Treatment Codes: 45 minutes Untimed Treatment Initial Evaluation-Low Complexity Ending Pain: 0/10 Stop Time: 2:00 pm ASSESSMENT Physical therapy movement impairment diagnosis/diagnoses: gait deviations secondary to weakness R gastroc mm from hx of L spine nerve compression Prognosis: good Response to today???s treatment: good Functional Limitations & Problems: 1. Weakness R gastroc and gluteal mm 2. Gait deviations 3. Overuse of toe/great toe flexors and peroneal mm Therapy Learning Needs Assessment: Barriers & Interventions: None - No Interventions Required. Persons Involved:Patient Patient Understands and Agrees: Yes- Home Exercise Program reviewed and patient voices understanding Comorbidities impacting physical therapy treatment: Chronicity of symptoms have caused adaptive changes and will limit potential for healing Personal factors impacting physical therapy treatment: none PLAN Physical therapy treatment at a frequency and duration of 1-2 times per week for 8-12 weeks will consist of instruction in home exercise program and functional activities as well as manual therapy and modalties to address identified functional limitations and problems. Short Term Goals: 2 weeks 1. indep with HEP 2. Decrease gait deviations Poster Goals: 12-16 weeks 1. 5/5 strength R gluteal mm 2. R gastroc strength 4/5 3. Pt to stand for 60 min without pain 4. Pt to walk for 60 min without pain Keiry Collier, ALY MYSQL DEVELOPER documented in this encounter Plan of Treatment Not on file documented as of this encounter Visit Diagnoses Diagnosis Chronic pain of right ankle- Primary documented in this encounter Orders Outpatient Referral Count Last Ordered Date Fir st Ordered Date AMB REFERRAL ORDER TO PHYSICAL THERAPY 1 documented in this encounter Care Teams Light Oil Operator Relationship Specialty Start Date End Date Immanuel Hart MD [address] [place] [address] PCP - General Internal Medicine 07/31/20 documented as of this encounter
--- OUTSIDE RECORDS SUMMARY | 2024-11-06 21:53 | XMS_ITS | Encounter Summary ---
Author Organization [facility] Healthcare Address [address] [place] [address] Care Team Providers Care Draw Off Worker Name Role Phone Immanuel Hart MD Primary Care Provider [phone] Reason for Visit * Reason Comments PT Treatment Encounter Details Date Type Department Care Team (Late st Contact Info) Description 12/19/2020 10:15 AM AUTO RADIATOR SPECIALIST Therapy [facility] at [address] [place] [id number] [place] [address] [place] [address] Chronic pain of right ankle (Primary Dx) [...] on file Legal Sex Male 6:01 AM AUTO RADIATOR SPECIALIST Gender Identity Not on file Sexual Orientation Not on file 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 --pt ordered a home ethiopian e stim unit and will bring it to the next PT visit to learn how to use it. Init Mechanism of Injury: back injury 1999 [...] in mid to late stance phase 2) performed manual rx for: talocrural jt distraction, and post talar glides grade 4 with PROM of dorsiflexion 3) applied taping with leukotape to prevent excessive eversion at late stance push off, as well as leukotape to encourage mobilization of post talar glide with late stance dorsiflexion. Pt reports this helped to improve gait, relaxed toes more, and relieved lateral ankle pain. Reviewed proper self technique for taping his ankle. Exercise/ Activity Date: 10/06 Date: 10/20 Date: [...] ankle/foot taping Ending Pain: 0/10 Stop Time: 11:05 am ASSESSMENT Response to today???s treatment: good PLAN Continue PT with same POC. Short Term Goals: 2 weeks 1. indep with HEP, achieved 2. Decrease gait deviations, progressing Odd Job Laborer Goals: 12-16 weeks 1. 5/5 strength R gluteal mm 2. R gastroc strength 4/5 3. Pt to stand for 60 min without pain 4. Pt to walk for 60 min without pain Keiry Collier PT RADIATOR SPECIALIST documented in this encounter Plan of Treatment Not on file documented as of this encounter Visit Diagnoses Diagnosis Chronic pain of right ankle- Primary documented in this encounter Care Teams Draw Off Worker Relationship Specialty Start Date End Date Immanuel Hart MD [address] [place] [address] PCP - General Internal Medicine 07/31/20 documented as of this encounter
--- OUTSIDE RECORDS SUMMARY | 2024-11-06 21:53 | XMS_ITS | Encounter Summary ---
Author Organization [facility] Address [address] [facility] [address] [place] [address] Care Team Providers Care Drawing Press Operator Name Role Phone Immanuel Hart MD Primary Care Provider [phone] Encounter Details Date Type Department Care Team (Late st Contact Info) Description 12/08/2020 Orders Only [facility] Cardiology [address] [facility] [address] [place] [address] ProviderAlexia MD [address] [place], [place] [id number] Social History Tobacco Use Types Packs/Day Years Used Date Smoking Tobacco: Never Smokeless Tobacco: Never Alcohol Use Standard Drinks/Week Comments Yes 0 (1 standard drink = 0.6 oz pur e alcohol) PHQ-2 Answer Date Recorded PHQ-2 Score 0 06/29/2019 Sex and Gender Information Value Date Recorded Sex Assigned at Not on file Legal Sex Male 6:01 AM COMMUNITY CENTER COORDINATOR Gender Identity Not on file Sexual Orientation Not on file 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 Not on file Not on file documented as of this encounter Plan of Treatment Not on file documented as of this encounter Procedures Procedure Name Priority Date/Time Associated Diagnosis Comments CARDIOLOGY DOCUMENT SCAN Routine 12/08/2020 documented in this encounter Results * SCAN - CARDIOLOGY (12/08/2020) Anatomical Region Laterality Modality Other Historical Provider [facility] RADHA PEREZ Final Result documented in this encounter Visit Diagnoses Not on filedocumented in this encounter Care Teams Drawing Press Operator Relationship Specialty Start Date End Date Immanuel Hart MD [address] [place] [address] PCP - General Internal Medicine 07/31/20 documented as of this encounter
--- OUTSIDE RECORDS SUMMARY | 2024-11-06 21:54 | XMS_ITS | Encounter Summary ---
Author Organization [facility] Address [address] [facility] [address] [place] [address] Phone Care Team Providers Care Urban Planning Teacher Name Role Phone Naresh Hart MD Primary Care Provider Encounter Details Date Type Department Care Team (Late st Contact Info) Description 07/20/2019 Telephone [facility] [address] [facility] [address] [place] [address] Naresh Hart MD [address] [id number] Social History Tobacco Use Types Packs/Day Years Used Date Smoking Tobacco: Never Smokeless Tobacco: Never Alcohol Use Standard Drinks/Week Comments Yes 0 (1 standard drink = 0.6 oz pur e alcohol) PHQ-2 Answer Date Recorded PHQ-2 Score 0 06/29/2019 Sex and Gender Information Value Date Recorded Sex Assigned at Not on file Legal Sex Male 6:01 AM SUPERCHARGE REPAIR SUPERVISOR Gender Identity Not on file Sexual Orientation Not on file 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 Not on file Not on file documented as of this encounter Miscellaneous Notes * Telephone Encounter - Kayla Mazariegos - 07/20/2019 2:37 PM CDT spoke * Telephone Encounter - Naresh Hart MD - 07/20/2019 10:01 AM CDT Can use lamisil OTC * Telephone Encounter - Kayla Mazariegos - 07/20/2019 9:55 AM CDT Lab results and 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
--- OUTSIDE RECORDS SUMMARY | 2024-11-06 21:54 | XMS_ITS | Encounter Summary ---
Author Organization [facility] Healthcare Address [address] [place] [address] Care Team Providers Care Fur Finisher Seamstress Name Role Phone Naresh Hart MD Primary Care Provider Encounter Details Date Type Department Care Team (Latest Contact Info) Description 07/15/2017 9:34 AM CDT - 07/15/2017 11:59 PM CDT Hospital Encounter [facility] [phone] [place] [address] [address] Discharge Disposition: Discharge to home or self care Social History Tobacco Use Types Packs/Day Years Used Date Smoking Tobacco: Never Sex and Gender Information Value Date Recorded Sex Assigned at Not on file Legal Sex Male 6:01 AM PRINT LINE FEEDER Gender Identity Not on file Sexual Orientation Not on file documented as of this encounter Discharge Disposition Disposition Code Departure Means Destination Discharge to home or self care documented in this encounter Plan of Treatment Not on file documented as of this encounter Visit Diagnoses Not on filedocumented in this encounter Care Teams Fur Finisher Seamstress Relationship Specialty Start Date End Date Naresh Hart MD PCP - General 04/20/17 07/30/20 documented as of this encounter
--- OUTSIDE RECORDS SUMMARY | 2024-11-06 21:54 | XMS_ITS | Encounter Summary ---
Author Organization [facility] Care Team Providers Care Enchilada Maker Name Role Phone Unavailable Primary Care Provider Unavailabl e Encounter Details Date Type Department Care Team (Late st Contact Info) Description 08/09/2014 - 08/09/2014 11:59 PM CDT Hospital Encounter [facility] Naresh Madrid MD [address] [address] Screening for other and unspecified cardiovascular conditions Social History Tobacco Use Types Packs/Day Years Used Date Smoking Tobacco: Never Assessed Sex and Gender Information Value Date Recorded Sex Assigned at Not on file 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 Gender Identity Not on file Sexual Orientation Not on file documented as of this encounter Plan of Treatment Not on file documented as of this encounter Procedures Procedure Name Priority Date/Time Associated Diagnosis Comments DISCHARGE LABORATORY CUMULATIVE REPORT Routine 08/09/2014 5:15 PM CDT SERUM THYROID-STIMULATING HORMONE (TSH) Routine 08/09/2014 8:34 AM CDT SERUM LIPID PANEL Routine 08/09/2014 8:3 4 AM CDT SERUM GLUCOSE, FASTING Routine 4 8:34 AM CDT PLASMA COMPREHENSIVE METABOLIC PANEL Routine 08/09/2014 8:34 AM CDT BLOOD CELL COUNT (CBC) Routine 4 8:34 AM CDT documented in this encounter Results * Discharge Laboratory Cumulative Report (08/09/2014 5:15 PM CDT) 08/09/2014 5:15 PM CDT Narrative HISTORICAL RESULTS - 08/09/2014 5:15 PM CDT ? [facility] ? Department of Laboratories ? [facility] ? [place] ?[place] [address] ?[facility] ?[place] [address] [address] ?[place] [address] Patient Name: ? ALEJO SLADE J Med Rec Number: ?? [id number] Date of : ?1980 Gender/Age: ? Male 33 years Doctor: ? Naresh Hart M.D. Report Date/Time: 08/09/2014 17:15 ?* Abnormal ??C Critical ??f Footnote ??^ Corrected ??L Low ??H High ?i Interp Data ??@ Reference Lab ?Chart Type: Cumulative ? CHEMISTRY ? Standard Blood Chemistry ?08/09/2014 ?08:34:14 Test ?Units ?Reference Sodium ?140 ? mmol/L ?? 135-145 Plasma Potassium ?4.3 ? mmol/L ?? 3.3-4.9 Chloride ?102 ? mmol/L ?? 97-110 Total CO2 ? 28 ?mmol/L ?? 22-32 Anion Gap ? 10 ?mmol/L ?? 0-16 BUN ? 14 ?mg/dL ?8-25 Creatinine ?1.13 ?mg/dL ?0.70-1.30 Total Bilirubin ? 0.7 ? mg/dL ?0.3-1.1 Glucose, Fasting ?91 ?mg/dL ?70-99 Total Calcium ? 9.9 ? mg/dL ?8.6-10.3 Plasma Total Protein ??7.5 ? g/dL ? 6.5-8.5 Albumin ? 4.8 ? g/dL ? 3.6-5.0 Alkaline Phosphatase ??55 ?Units/L ??38-126 ALT ? 96 ??H ? Units/L ??7-53 AST ? 35 ?Units/L ??11-47 ?Lipids ? 08/09/2014 ? 08:34:14 Test ? Units ??Reference Total Cholesterol i ?174 ? mg/dL ??0-200 HDL Cholesterol i ?36 ??L ? mg/dL ??40-199 Triglycerides i ?135 ? mg/dL ??0-150 LDL Chol (Calc) i ?111 ? mg/dL ??0-129 non-HDL Cholesterol i ??138 ? mg/dL ? CHEMISTRY ?Lipids 08/09/2014 08:34:14 Total Cholesterol: Interpretive Data Desirable: ?<200 mg/dL Borderline high: ??200-239 mg/dL High: ? >240 mg/dL Literature Reference: National Cholesterol Education Program (NCEP) Expert Panel on Detection, Evaluation, and Treatment of High Blood Cholesterol in Adults (Adult Treatment Panel III). ??Circulation 2004; 110:227. Current interpretive data was last revised on 2005. 08/09/2014 08:34:14 HDL Cholesterol: Interpretive Data Less than 40 mg/dL - low; A major risk factor for heart disease. Greater than or equal to 60 mg/dL - High; ??considered protective of heart disease. Literature Reference: See Cholesterol Current interpretive data was last revised on 2008. 08/09/2014 08:34:14 Triglycerides: Interpretive Data Desirable: ? < 150 mg/dL Borderline High: ? 150 - 199 mg/dL High: ?> 200 mg/dL Literature Reference: See Cholesterol Current interpretive data was last revised on 07. 08/09/2014 08:34:14 LDL Chol (Calc): Interpretive Data Optimal: ? < 100 mg/dL Near Optimal: ?100 - 129 mg/dL Borderline High: ?? 130 - 159 mg/dL High: ?> 160 mg/dL Literature Reference: See Cholesterol Current interpretive data was last revised on 07. 08/09/2014 08:34:14 non-HDL Cholesterol: Interpretive Data When triglycerides are >200 mg/dL, non-HDL C is a secondary target of therapy, with a goal 30 mg/dL higher than the identified LDL-C goal. Reference: ??See Cholesterol Reference. Current interpretive data was last revised 2012. ? Hormones ? 08/09/2014 ? 08:34:14 Test ? Units ? Reference TSH i ??1.34 ?mcIUnit/mL ??0.35-5.50 08/09/2014 08:34:14 TSH: Interpretive Data Hyperthyroid: ??<0.1 mcIUnit/mL Hypothyroid: ??>12.0 mcIUnit/mL Current interpretive data was last revised on 01. ?HEMATOLOGY ?Standard Hematology ?08/09/2014 ?08:34:14 Test ?Units ?? Reference WBC ? 7.2 ? K/cumm ??3.8-9.8 RBC ? 4.78 ?M/cumm ??4.50-5.70 Hgb ? 15.1 ?g/dL ?13.8-17.2 Hct ? 44.0 ?% ? 40.7-50.[address] ? 282 ? K/cumm ??140-440 MCV ? 92.2 ?fL ?80.0-97.6 MCH ? 31.6 ?pg ?26.7-33.7 MCHC ?34.3 ?g/dL ?32.7-35.5 RDW ? 12.7 ?% ? 11.8-14.6 MPV ? 7.9 ? fL ?6.8-10.4 Neut Pct Auto ?? 60.5 ?% ? 38.7-74.5 Lymph Pct Auto ??29.8 ?% ? 20.0-54.3 [place] Pct Auto ?? 7.8 ? % ? 4.3-13.5 Eos Pct Auto ?1.8 ? % ? 0.0-6.0 Baso Pct Auto ?? 0.1 ? % ? 0.0-3.0 Neut Abs Auto ?? 4.4 ? K/cumm ??1.8-6.6 Lymph Abs Auto ??2.1 ? K/cumm ??1.2-3.3 [place] Abs Auto ?? 0.6 ? K/cumm ??0.2-1.2 Eos Abs Auto ?0.1 ? K/cumm ??0.0-0.5 Baso Abs Auto ?? 0.0 ? K/cumm ??0.0-0.2 us Historical Provider MD LAB BLOOD ORDERABLES Lashell l Result HISTORICAL RESULTS * Serum thyroid-stimulating hormone (TSH) (08/09/2014 8:34 AM CDT) TSH 1.34 0.35 - 5.50 mcIUnits/m l HISTORICAL RESULTS Comment: Interpretive Data Hyperthyroid: ??<0.1 mcIUnit/mL Hypothyroid: ??>12.0 mcIUnit/mL Current interpretive data was last revised on 01. Serum 08/09/2014 8:34 AM CDT us Naresh Hart MD LAB BLOOD ORDERABLES F inal Result HISTORICAL RESULTS * (ABNORMAL) Serum lipid panel (08/09/2014 8:34 AM CDT) Cholesterol 174 0 - 200 mg/dl HISTORICAL RESULTS Comment: Interpretive Data Desirable: ?<200 mg/dL Borderline high: ??200-239 mg/dL High: ? >240 mg/dL Literature Reference: National Cholesterol Education Program (NCEP) Expert Panel on Detection, Evaluation, and Treatment of High Blood Cholesterol in Adults (Adult Treatment Panel III). ??Circulation 2004; 110:227. Current interpretive data was last revised on 2005. Triglycerides 135 0 - 150 mg/dl HISTORICAL RESULTS Comment: Interpretive Data Desirable: ? < 150 mg/dL Borderline High: ? 150 - 199 mg/dL High: ?> 200 mg/dL Literature Reference: See Cholesterol Current interpretive data was last revised on 07. HDL 36(L) 40 - 199 mg/dl HISTORICAL RESULTS Comment: Interpretive Data Less than 40 mg/dL - low; A major risk factor for heart disease. Greater than or equal to 60 mg/dL - High; ??considered protective of heart disease. Literature Reference: See Cholesterol Current interpretive data was last revised on 2008. LDL 111 0 - 129 mg/dl HISTORICAL RESULTS Comment: Interpretive Data Optimal: ? < 100 mg/dL Near Optimal: ?100 - 129 mg/dL Borderline High: ?? 130 - 159 mg/dL High: ?> 160 mg/dL Literature Reference: See Cholesterol Current interpretive data was last revised on 07. Non-HDL cholesterol, calculated 138 mg/dl HISTORICAL RESULTS Comment: Interpretive Data When triglycerides are >200 mg/dL, non-HDL C is a secondary target of therapy, with a goal 30 mg/dL higher than the identified LDL-C goal. Reference: ??See Cholesterol Reference. Current interpretive data was last revised 2012. Serum 08/09/2014 8:34 AM CDT Naresh Hart MD LAB BLOOD ORDERABLES F inal Result Performing Organization Address [facility] Phone Number HISTORICAL RESULTS * (ABNORMAL) Plasma comprehensive metabolic panel (08/09/2014 8:34 AM CDT) Pathologist [facility] Sodium 140 135 - 145 mmol/L HISTORICAL RESULTS K, pl 4.3 3.3 - 4.9 mmol/L HISTORICAL RESULTS Chloride 102 97 - 110 mmol/L HISTORICAL RESULTS CO2 28 22 - 32 mmol/L HISTORICAL RESULTS A. gap 10 0 - 16 mmol/L HISTORICAL RESULTS BUN 14 8 - 25 mg/dl HISTORICAL RESULTS Creatinine 1.13 0.70 - 1.30 mg/dl HISTORICAL RESULTS Calcium 9.9 8.6 - 10.3 mg/dl HISTORICAL RESULTS Protein, pl 7.5 6.5 - 8.5 g/dl HISTORICAL RESULTS Alb 4.8 3.6 - 5.0 g/dl HISTORICAL RESULTS Bilirubin 0.7 0.3 - 1.1 mg/dl HISTORICAL RESULTS Alk phos 55 38 - 126 Units/L HISTORICAL RESULTS AST 35 11 - 47 Units/L HISTORICAL RESULTS ALT 96(H) 7 - 53 Units/L HISTORICAL RESULTS Plasma 08/09/2014 8:34 AM CDT Naresh Hart MD LAB BLOOD ORDERABLES F inal Result Performing Organization Address [facility] de Phone Number HISTORICAL RESULTS * Blood cell count (CBC) (08/09/2014 8:34 AM CDT) WBC 7.2 3.8 - 9.8 K/cumm HISTORICAL RESULTS RBC 4.78 4.50 - 5.70 M/cumm HISTORICAL RESULTS Hgb 15.1 13.8 - 17.2 g/dl HISTORICAL RESULTS Hct 44.0 40.7 - 50.3 % HISTORICAL RESULTS MCV 92.2 80.0 - 97.6 fl HISTORICAL RESULTS MCH 31.6 26.7 - 33.7 pg HISTORICAL RESULTS MCHC 34.3 32.7 - 35.5 g/dl HISTORICAL RESULTS Rdw 12.7 11.8 - 14.6 % HISTORICAL RESULTS Platelets 282 140 - 440 K/cumm HISTORICAL RESULTS MPV 7.9 6.8 - 10.4 fl HISTORICAL RESULTS Neutrophils 60.5 38.7 - 74.5 % HISTORICAL RESULTS Lymphocytes 29.8 20.0 - 54.3 % HISTORICAL RESULTS Monos 7.8 4.3 - 13.5 % HISTORICAL RESULTS Eosinophils 1.8 0.0 - 6.0 % HISTORICAL RESULTS Basophils 0.1 0.0 - 3.0 % HISTORICAL RESULTS Neutrophils, abs 4.4 1.8 - 6.6 K/cumm HISTORICAL RESULTS Lymphocytes, abs 2.1 1.2 - 3.3 K/cumm HISTORICAL RESULTS Monocytes, absolute 0.6 0.2 - 1.2 K/cumm HISTORICAL RESULTS Eosinophils, abs 0.1 0.0 - 0.5 K/cumm HISTORICAL RESULTS Basophils, abs 0.0 0.0 - 0.2 K/cumm HISTORICAL RESULTS Blood specimen (specimen) 08/09/2014 8:34 AM CDT Naresh Hart MD LAB BLOOD ORDERABLES F inal Result HISTORICAL RESULTS * Serum glucose, fasting (08/09/2014 8:34 AM CDT) Glucose, fasting 91 70 - 99 mg/dl HISTORICAL RESULTS Serum 08/09/2014 8:34 AM CDT Naresh Hart MD LAB BLOOD ORDERABLES F inal Result HISTORICAL RESULTS documented in this encounter Visit Diagnoses Diagnosis Screening for other and unspecified cardiovascular conditions documented in this encounter
--- OUTSIDE RECORDS SUMMARY | 2024-11-06 21:54 | XMS_ITS | Encounter Summary ---
Author Organization [facility] Facility Care Team Providers Care Field Ring Assembler Name Role Phone Unavailable Primary Care Provider Unavailabl e Encounter Details Date Type Department Care Team (Late st Contact Info) Description 03/15/2015 - 03/15/2015 11:59 PM CDT Hospital Encounter [facility] Ioana Madrid MD [address] [address] Low back pain; Neuralgia, neuritis or radiculitis; Degeneration of lumbar or lumbosacral intervertebral disc Social History Tobacco Use Types Packs/Day Years Used Date Smoking Tobacco: Never Assessed Sex and Gender Information Value Date Recorded Sex Assigned at Not on file 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 BRANDO HARRIS M.D. FINAL REPORT The radiology attending physician has personally reviewed this study, and has reviewed and/or edited this written report and agrees with it. ACC# ??Date Time ??Exam [id number] March 15, 2015 09:29:00 [id number] MRI Lumbar Spine wo cont EXAMINATION: ?? Lumbar spine magnetic resonance imaging (MRI) without contrast. ? HISTORY: L5-S1 radiculopathy with measured weakness on exam. TECHNIQUE: Multiplanar multi-weighted magnetic resonance imaging of the lumbar spine was performed without administration of intravenous gadolinium contrast according to the degenerative disc disease protocol. Contrast information: Intravenous contrast used: None. Comparison: None available. FINDINGS: Schmorl's nodes with modic type I endplate changes at the L4-L5 level. The lumbar spine is in the normal anatomic alignment. Vertebral bodies are of normal height without compression fractures. The bone marrow demonstrates normal signal intensity on all sequences. ??The conus medullaris terminates at the level of L1-L2 and the distal spinal cord signal intensity is normal. Axial images: T12-L1: Dictated disc with moderate disc arthropathy with mild disc bulge on sagittal images. No axial images are available for evaluation. L1-L2 and L2-L3: The disc is normal in configuration. There is no facet arthropathy. There is no neural foraminal narrowing. There is no central canal stenosis. L3-L4: Generalized disc bulge. There is mild right facet arthropathy. There is no neural foraminal narrowing. There is no central canal stenosis. L4-L5: Generalized disc bulge with focal central protrusion. There is no facet arthropathy. There is no neural foraminal narrowing. There is mild central canal stenosis. L5-S1: Right paracentral and foraminal disc extrusion is identified which causes severe narrowing of the right lateral recess as well as severe narrowing of the right neural foramina with mass effect at the emerging right L5 nerve root. There is mild central canal narrowing. There is moderate right and mild left facet arthropathy. IMPRESSION: ?? Multilevel degenerative changes of the lumbar spine as described in detail above, worse at L5-S1. Requested By: IOANA BE M.D. Dictated By: ?? BRANDO HARRIS M.D. ??on March ??2014 11:35A This document has been electronically signed by: SIDNEY CARR M.D. on Mar 16 2015 ??2:20P [id number] Procedure Note Provider, MD Alexia - 03/04/2017 SIDNEY CARR M.D. BRANDO HARRIS M.D. FINAL REPORT The radiology attending physician has personally reviewed this study, and has reviewed and/or edited this written report and agrees with it. ACC# Date Time Exam [id number] March 15, 2015 09:29:00 [id number] MRI Lumbar Spine wo cont EXAMINATION: Lumbar spine magnetic resonance imaging (MRI) without contrast. HISTORY: L5-S1 radiculopathy with measured weakness on exam. TECHNIQUE: Multiplanar multi-weighted magnetic resonance imaging of the lumbar spine was performed without administration of intravenous gadolinium contrast according to the degenerative disc disease protocol. Contrast information: Intravenous contrast used: None. Comparison: None available. FINDINGS: Schmorl's nodes with modic type I endplate changes at the L4-L5 level. The lumbar spine is in the normal anatomic alignment. Vertebral bodies are of normal height without compression fractures. The bone marrow demonstrates normal signal intensity on all sequences. The conus medullaris terminates at the level of L1-L2 and the distal spinal cord signal intensity is normal. Axial images: T12-L1: Dictated disc with moderate disc arthropathy with mild disc bulge on sagittal images. No axial images are available for evaluation. L1-L2 and L2-L3: The disc is normal in configuration. There is no facet arthropathy. There is no neural foraminal narrowing. There is no central canal stenosis. L3-L4: Generalized disc bulge. There is mild right facet arthropathy. There is no neural foraminal narrowing. There is no central canal stenosis. L4-L5: Generalized disc bulge with focal central protrusion. There is no facet arthropathy. There is no neural foraminal narrowing. There is mild central canal stenosis. L5-S1: Right paracentral and foraminal disc extrusion is identified which causes severe narrowing of the right lateral recess as well as severe narrowing of the right neural foramina with mass effect at the emerging right L5 nerve root. There is mild central canal narrowing. There is moderate right and mild left facet arthropathy. IMPRESSION: Multilevel degenerative changes of the lumbar spine as described in detail above, worse at L5-S1. Requested By: IOANA BE M.D. Dictated By: BRANDO HARRIS M.D. on Mar 15 2015 11:35A This document has been electronically signed by: SIDNEY CARR M.D. on Mar 16 2015 2:20P [id number] us Historical Provider IMEdw[facility] MRI PROCEDURES Final Result * EMG (03/04/2015) Anatomical Region Laterality Modality Other Narrative 03/04/2015 Ordered by an unspecified provider. us Historical Provider NEUROLOGY ORDERABLES Lashell l Result documented in this encounter Visit Diagnoses Diagnosis Low back pain Lumbago Neuralgia, neuritis or radiculitis Degeneration of lumbar or lumbosacral intervertebral disc documented in this encounter
--- OUTSIDE RECORDS SUMMARY | 2024-11-06 21:54 | XMS_ITS | Encounter Summary ---
Author Organization [facility] Address [address] [place] [address] [address] [place] [address] Phone Care Team Providers Care Automotive Parts Clerk Name Role Phone Naresh Hart MD Primary Care Provider Reason for Referral * Diagnostic Imaging (Routine) - Closed Specialty Diagnoses / Procedures Referred By Contac t Referred To Contact Diagnoses Elevated LFTs Procedures US Abdomen Complete Naresh Hart MD Phone: tel: fax: [facility] (All Locations) Referral ID Status Reason Start Date Expiration Date Visits Re quested Visits Authorized [id number] Closed 07/20/2019 01/28/2021 1 1 Encounter Details Date Type Department Care Team (Late st Contact Info) Description 07/20/2019 Orders Only [facility] [address] [facility] [address] [place] [address] Naresh Hart MD [address] [address] Elevated LFTs (Primary Dx) Social History Tobacco Use Types Packs/Day Years Used Date Smoking Tobacco: Never Smokeless Tobacco: Never Alcohol Use Standard Drinks/Week Comments Yes 0 (1 standard drink = 0.6 oz pur e alcohol) PHQ-2 Answer Date Recorded PHQ-2 Score 0 06/29/2019 Sex and Gender Information Value Date Recorded Sex Assigned at Not on file 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 Moderate hepatic steatosis, otherwise normal abdominal sonogram. Dictated by: Nina Bradley PA-C The radiology attending physician has personally reviewed this study, and had reviewed and/or edited this written report and agrees with it. Electronically signed by: Yanique Dixon M.D. Narrative 08/23/2019 11:11 AM CDT EXAMINATION: ??COMPLETE ABDOMINAL SONOGRAM HISTORY: ??39-year-old male with elevated liver function tests. COMPARISON: ??None FINDINGS: ?? Liver: The liver is normal in size. ??The echotexture is normal. ??The echogenicity is increased. There is no surface nodularity. No focal solid lesions are visualized. ?? Gallbladder: The gallbladder is normal in size. There are no stones or sludge within the gallbladder. There is no gallbladder wall thickening. Bile Duct: There is no intrahepatic bile duct dilatation. The common duct measures 2 mm, 3 mm, and 2 mm in the proximal, mid and distal segments respectively. ?? Kidneys: There is no hydronephrosis in the visualized portions of the kidneys. Pancreas: The visualized portions of the body of the pancreas are normal. Spleen: The spleen is normal in size. Aorta: The proximal aorta is normal. Inferior vena cava: The proximal IVC is normal. Other Findings: There is no ascites. Procedure Note Yanique Dixon MD - 08/23/2019 EXAMINATION: COMPLETE ABDOMINAL SONOGRAM HISTORY: 39-year-old male with elevated liver function tests. COMPARISON: None FINDINGS: Liver: The liver is normal in size. The echotexture is normal. The echogenicity is increased. There is no surface nodularity. No focal solid lesions are visualized. Gallbladder: The gallbladder is normal in size. There are no stones or sludge within the gallbladder. There is no gallbladder wall thickening. Bile Duct: There is no intrahepatic bile duct dilatation. The common duct measures 2 mm, 3 mm, and 2 mm in the proximal, mid and distal segments respectively. Kidneys: There is no hydronephrosis in the visualized portions of the kidneys. Pancreas: The visualized portions of the body of the pancreas are normal. Spleen: The spleen is normal in size. Aorta: The proximal aorta is normal. Inferior vena cava: The proximal IVC is normal. Other Findings: There is no ascites. IMPRESSION: 1. Moderate hepatic steatosis, otherwise normal abdominal sonogram. Dictated by: Nina Bradley PA-C The radiology attending physician has personally reviewed this study, and had reviewed and/or edited this written report and agrees with it. Electronically signed by: Yanique Dixon M.D. us Naresh Hart MD IMG US PROCEDURES Lashell l Result documented in this encounter Visit Diagnoses Diagnosis Elevated LFTs- Primary Other abnormal blood chemistry Elevated LFTs Other abnormal blood chemistry documented in this encounter Care Teams Automotive Parts Clerk Relationship Specialty Start Date End Date Naresh Hart MD PCP - General 04/20/17 07/30/20 documented as of this encounter
--- OUTSIDE RECORDS SUMMARY | 2024-11-06 21:54 | XMS_ITS | Encounter Summary ---
Author Organization [facility] Address [address] [place] [address] Care Team Providers Care Billet Bed Operator Name Role Phone Naresh Hart MD Primary Care Provider Encounter Details Date Type Department Care Team (Latest Contact Info) Description 05/13/2017 10:23 AM CDT - 05/13/2017 11:59 PM CDT Hospital Encounter [facility] [phone] Maryam Hwang, RN RELIE[facility] CHARGE [address] [place] [address] Discharge Disposition: Discharge to home or self care Social History Tobacco Use Types Packs/Day Years Used Date Smoking Tobacco: Never Sex and Gender Information Value Date Recorded Sex Assigned at Not on file 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 Gender Identity Not on file Sexual Orientation Not on file documented as of this encounter Discharge Disposition Disposition Code Departure Means Destination Discharge to home or self care documented in this encounter Plan of Treatment Not on file documented as of this encounter Procedures Procedure Name Priority Date/Time Associated Diagnosis Comments XR SPINE LUMBAR 6 OR MORE VIEWS Routine 05/13/2017 4:06 PM CDT documented in this encounter Results * XR Spine Lumbar Complete (05/13/2017 4:06 PM CDT) Anatomical Region Laterality Modality L-spine N/A Radiographic Chana ging 05/13/2017 4:06 PM CDT Narrative 05/13/2017 4:06 PM CDT EXAM: ??Lumbar spine HISTORY: ??Back pain, right leg pain, AM51.36, degenerative disc disease lumbar. COMPARISON: ??Lumbar spine radiograph dated 04/30/2015 and MRI of the lumbar spine 03/15/2015. A standard three view lumbosacral spine series was obtained. FINDINGS: There is noted sclerosis and most of the anterior inferior portion of the right L4 vertebral body. ??This corresponds to the region noted on 03/15/2015 to a region described on the MRI report is a Schmorl's node in the inferior endplate of L4. ??The zonal sclerosis noted on the current exam is larger than the abnormality seen on the previous MRI examination. The bony pedicles are intact. There is some moderate narrowing of the L4-L5 disc space which is slightly more narrow than on the examination of the lumbar spine radiographs on 04/30/2015. There is some moderate narrowing of the L5-S1 disc with vacuum gas phenomena. IMPRESSION: 1. Interval development of sclerosis involving most of the anterior inferior portion of the L4 vertebral body. ??This may represent sclerosis in response to a small node or degenerative disc disease seen in this region on the MRI examination of the Mar 15 2015. Clinical correlation is requested. 2. ??Progression of degenerative disc disease at the L4-L5 level with the moderate disc space narrowing. 3. ??Marked degenerative disc space narrowing and vacuum gas phenomena at the L5-S1 level consistent with degenerative disc disease without significant interval change. Electronically signed by: Pete Trujillo M.D. Radiologist: PETE TRUJILLO MD ?? Attending: ??MARYAM HWANG [facility] Requesting: MARYAM HWANG [facility] Requesting Fax: ?? Requesting ID: [id number] Attending Fax: ?? Attending ID: ?? [id number] Completed Time: ?? 05/13/2017 11:06 AM Dictated Time: ?N/A Transcribed Time: 05/13/2017 3:03 PM Signed by: ?PETE TRUJILLO MD ?? on 05/13/2017 3:03 PM Report To 1 ID: Report To 1 Name: , Report To 1 FAX: Report To 2 ID: Report To 2 Name: , Report To 2 FAX: Report To 3 ID: Report To 3 Name: , Report To 3 FAX: NextGen Order #: Procedure Note Miscellaneous, Not In File / Provider, MD Alexia - 05/13/2017 EXAM: Lumbar spine HISTORY: Back pain, right leg pain, AM51.36, degenerative disc disease lumbar. COMPARISON: Lumbar spine radiograph dated 04/30/2015 and MRI of the lumbar spine 03/15/2015. A standard three view lumbosacral spine series was obtained. FINDINGS: There is noted sclerosis and most of the anterior inferior portion of the right L4 vertebral body. This corresponds to the region noted on 03/15/2015 to a region described on the MRI report is a Schmorl's node in the inferior endplate of L4. The zonal sclerosis noted on the current exam is larger than the abnormality seen on the previous MRI examination. The bony pedicles are intact. There is some moderate narrowing of the L4-L5 disc space which is slightly more narrow than on the examination of the lumbar spine radiographs on 04/30/2015. There is some moderate narrowing of the L5-S1 disc with vacuum gas phenomena. IMPRESSION: 1. Interval development of sclerosis involving most of the anterior inferior portion of the L4 vertebral body. This may represent sclerosis in response to a small node or degenerative disc disease seen in this region on the MRI examination of the Mar 15 2015. Clinical correlation is requested. 2. Progression of degenerative disc disease at the L4-L5 level with the moderate disc space narrowing. 3. Marked degenerative disc space narrowing and vacuum gas phenomena at the L5-S1 level consistent with degenerative disc disease without significant interval change. Electronically signed by: Pete Trujillo M.D. Radiologist: PETE TRUJILLO MD Attending: MARYAM HWANG [facility] Requesting: MARYAM HWANGP Requesting Requesting ID: [id number] Attending Attending ID: [id number] Completed Time: 05/13/2017 11:06 AM Dictated Time: N/A Transcribed Time: 05/13/2017 3:03 PM Signed by: PETE TRUJILLO MD on 05/13/2017 3:03 PM Report To 1 ID: Report To 1 Name: , Report To 1 FAX: Report To 2 ID: Report To 2 Name: , Report To 2 FAX: Report To 3 ID: Report To 3 Name: , Report To 3 FAX: NextGen Order #: us Maryam Hwang RN RELIEF CHARGE IMG XR PROCEDURES Final Resu lt documented in this encounter Visit Diagnoses Not on filedocumented in this encounter Care Teams Billet Bed Operator Relationship Specialty Start Date End Date Naresh Hart MD PCP - General 04/20/17 07/30/20 documented as of this encounter
--- OUTSIDE RECORDS SUMMARY | 2024-11-06 21:54 | XMS_ITS | Encounter Summary ---
Author Organization [facility] Healthcare Address [address] [place] [address] Care Team Providers Care Woods Boss Name Role Phone Naresh Hart MD Primary Care Provider Encounter Details Date Type Department Care Team (Latest Contact Info) Description 07/27/2017 5:44 AM CDT - 07/27/2017 5:09 PM CDT Hospital Encounter [facility] [address] [place] [id number] [place] [address] [place] [address] Discharge Disposition: Discharge to home or self care Social History Tobacco Use Types Packs/Day Years Used Date Smoking Tobacco: Never Sex and Gender Information Value Date Recorded Sex Assigned at Not on file 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 Gender Identity Not on file Sexual Orientation Not on file documented as of this encounter Last Filed Vital Signs Vital Sign Reading Time Taken Comments Blood Pressure - - Pulse - - Temperature - - Respiratory Rate - - Oxygen Saturation - - Inhaled Oxygen Concentration - - Weight 117.8 kg (259 lb 11.2 oz) 07/15/2017 9:57 AM CDT Height 188 cm (6' 2.02 ) 07/15/2017 9:57 AM CDT Body Mass Index 33.33 07/15/2017 9:57 AM CDT documented in this encounter Discharge Disposition Disposition Code Departure Means Destination Discharge to home or self care documented in this encounter Miscellaneous Notes * Op Note - ProviderAlexia MD - 07/27/2017 12:00 AM CDT [facility] Patient: ALEJO SLADE Account: [id number] Room No: A07-A : 1980 Proc. Date: 07/27/2017 Surgeon: MITCH HOFFMAN MD Admit Date: 07/27/2017 Disch. Date: 07/27/2017 Patient Type: SDS OPERATIVE REPORT SURGEON Mitch Hoffman MD PREOPERATIVE DIAGNOSES 1. Right L5-S1 disc herniation with radiculopathy. 2. Degenerative disk disease. POSTOPERATIVE DIAGNOSES 1. Right L5-S1 disc herniation with radiculopathy. 2. Degenerative disk disease. PROCEDURE Right L5-S1 laminectomy and microdiskectomy. ANESTHESIA General. BLOOD LOSS Minimal. SPECIMENS None. COMPLICATIONS None. FINDINGS Calcified disk herniation. INDICATION Briefly, the patient presents with a right S1 radiculopathy secondary to his disk herniation. The risks were discussed and he wished to proceed with surgery. We did discuss the fact that he had L5 foraminal stenosis but given the absence of any L5 radiculopathy we elected to defer on a far lateral L5- S1 foraminotomy for decompression of the L5 nerve root. The risks were discussed and he wished to proceed. PROCEDURE The patient was taken to the operating room in the supine position, underwent smoothly induced general anesthesia via an endotracheal tube. ANA hose and sequential stockings were placed. He was turned prone onto the operating table in a Robbie frame. Pressure points were carefully checked and padded. Lumbar region of the back was cleansed with alcohol. A spinal needle was placed and an x-ray obtained for skin incision localization. The needle was removed. The back was prepped and draped in usual fashion. The area of incision was infiltrated with 20 mL of 0.5% Marcaine with 1:200,000 epinephrine. A midline vertical incision was made centered over the L5-S1 level. Dissection was carried down to the lumbodorsal fascia which was divided to the right of the midline and tagged with suture. Paraspinous muscle was reflected laterally. The inferior border of the L5 lamina and a small portion of superior S1 lamina were thinned using a drill and removed using a Kerrison punch. Ligamentum flavum was dissected away from the underlying dura and removed. The operating microscope was then brought into the field for microscopic dissection. The S1 nerve root was retracted medially over a calcified disk herniation. The lateral gutter was cleared of some of the lateral ligamentum flavum which decompressed the lateral nerve root. The nerve root was clearly stretched over this calcified herniation. I was able to then thin the shell of the calcified disk herniation with a drill and remove it then with a Kerrison punch. I was also able to remove some of the calcified disk herniation down in towards the disk space using an Capri curette. This material was then removed. The disk space was identified and there was no disk herniation in the region of the opening in the anulus. It was then possible to easily palpate ventral to the thecal sac and the S1 nerve root revealing no residual nerve root impingement or disk herniation. The wound was then thoroughly irrigated with antibiotic solution and inspected for hemostasis. The wound was then closed in layers with 0 Vicryl in the lumbodorsal fascia, 2-0 Vicryl in Kyler's layer, 3-0 Vicryl in the subcutaneous layer, and 4-0 Monocryl in a running subcuticular stitch in the skin. Steri-Strips and a sterile dressing were applied. Edited by: Mitch Hoffman MD On 07/29/2017 08:00 PM CDT Electronically Authenticated and Edited by: Mitch Hoffman MD On 07/29/2017 08:00 PM CDT MITCH HOFFMAN MD /[facility] TD: 07/27/2017 10:41 documented in this encounter Plan of Treatment Not on file documented as of this encounter Procedures Procedure Name Priority Date/Time Associated Diagnosis Comments XR SPINE 1 VW Routine 07/27/2017 1:17 PM CDT XR SPINE 1 VW Routine 07/27/2017 12:58 PM CDT documented in this encounter Results * XR Spine 1 VW (07/27/2017 1:17 PM CDT) Anatomical Region Laterality Modality Spine N/A Radiographic Chana ging 07/27/2017 1:17 PM CDT Narrative 07/27/2017 1:17 PM CDT Lumbar spine one view. HISTORY: Lumbar surgery. FINDINGS: Single portable lateral view lumbar spine shows metallic probe projecting posterior to the L5-S1 region. IMPRESSION: Operative radiograph lumbar spine. Electronically signed by: Miguel Muse M.D. Radiologist: MIGUEL MUSE MD ?? Attending: ??MITCH HOFFMAN M.D. Requesting: MICTH HOFFMAN M.D. Requesting Fax: ?? Requesting ID: [id number] Attending Fax: ?? Attending ID: ?? [id number] Completed Time: ?? 07/27/2017 08:17 AM Dictated Time: ?N/A Transcribed Time: 07/27/2017 09:09 AM Signed by: ?MIGUEL MUSE MD ?? on 07/27/2017 09:09 AM Report To 1 ID: Report To 1 Name: , Report To 1 FAX: Report To 2 ID: Report To 2 Name: , Report To 2 FAX: Report To 3 ID: Report To 3 Name: , Report To 3 FAX: NextGen Order #: Procedure Note Miscellaneous, Not In File / Provider, MD Alexia - 07/27/2017 Lumbar spine one view. HISTORY: Lumbar surgery. FINDINGS: Single portable lateral view lumbar spine shows metallic probe projecting posterior to the L5-S1 region. IMPRESSION: Operative radiograph lumbar spine. Electronically signed by: Miguel Muse M.D. Radiologist: MIGUEL MUSE MD Attending: MITCH HOFFMAN M.D. Requesting: MITCH HOFFMAN M.D. Requesting Requesting ID: [id number] Attending Attending ID: [id number] Completed Time: 07/27/2017 08:17 AM Dictated Time: N/A Transcribed Time: 07/27/2017 09:09 AM Signed by: MIGUEL MUSE MD on 07/27/2017 09:09 AM Report To 1 ID: Report To 1 Name: , Report To 1 FAX: Report To 2 ID: Report To 2 Name: , Report To 2 FAX: Report To 3 ID: Report To 3 Name: , Report To 3 FAX: NextGen Order #: us Mitch Hoffman MD IMG XR PROCEDURES Edited Result - Final * XR Spine 1 VW (07/27/2017 12:58 PM CDT) Anatomical Region Laterality Modality Spine N/A Radiographic Chana ging 07/27/2017 12:5 8 PM CDT Narrative 07/27/2017 12:58 PM CDT Lumbar Spine, 07/27/2017 HISTORY: Localization view, intraoperative planning prior to L5-S1 laminectomy COMPARISON: 05/13/[address] 07/15/2017 A single crosstable lateral prone lumbar spine view demonstrates a dorsal needle probe directed towards the L5-S1 disc space. IMPRESSION: Intraoperative localization view. Electronically signed by: Lobito Nguyễn M.D. Radiologist: LOBITO NGUYỄN ?? Attending: ??MITCH HOFFMAN M.D. Requesting: MITCH HOFFMAN M.D. Requesting Fax: ?? Requesting ID: [id number] Attending Fax: ?? Attending ID: ?? [id number] Completed Time: ?? 07/27/2017 07:58 AM Dictated Time: ?N/A Transcribed Time: 07/27/2017 09:07 AM Signed by: ?LOBITO NGUYỄN ?? on 07/27/2017 09:07 AM Report To 1 ID: Report To 1 Name: , Report To 1 FAX: Report To 2 ID: Report To 2 Name: , Report To 2 FAX: Report To 3 ID: Report To 3 Name: , Report To 3 FAX: NextGen Order #: Procedure Note Miscellaneous, Not In File / Provider, Historical, - 07/27/2017 Lumbar Spine, 07/27/2017 HISTORY: Localization view, intraoperative planning prior to L5-S1 laminectomy COMPARISON: 05/13/[address] 07/15/2017 A single crosstable lateral prone lumbar spine view demonstrates a dorsal needle probe directed towards the L5-S1 disc space. IMPRESSION: Intraoperative localization view. Electronically signed by: Lobito Nguyễn M.D. Radiologist: LOBITO NGUYỄN Attending: MITCH HOFFMAN M.D. Requesting: MITCH HOFFMAN M.D. Requesting Requesting ID: [id number] Attending Attending ID: [id number] Completed Time: 07/27/2017 07:58 AM Dictated Time: N/A Transcribed Time: 07/27/2017 09:07 AM Signed by: LOBITO NGUYỄN on 07/27/2017 09:07 AM Report To 1 ID: Report To 1 Name: , Report To 1 FAX: Report To 2 ID: Report To 2 Name: , Report To 2 FAX: Report To 3 ID: Report To 3 Name: , Report To 3 FAX: NextGen Order #: Mitch Hoffman MD IMG XR PROCEDURES Edited Result - Final documented in this encounter Visit Diagnoses Not on filedocumented in this encounter Care Teams Woods Boss Relationship Specialty Start Date End Date Naresh Hart MD PCP - General 04/20/17 07/30/20 documented as of this encounter
--- OUTSIDE RECORDS SUMMARY | 2024-11-06 21:54 | XMS_ITS | Encounter Summary ---
Author Organization [facility] Care Team Providers Care Concrete Buildings Assembler Name Role Phone Unavailable Primary Care Provider Unavailabl e Encounter Details Date Type Department Care Team (Late st Contact Info) Description 12/11/2014 - 12/11/2014 11:59 PM SETTLEMENT CLERK Hospital Encounter 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 Gender Identity Not on file Sexual Orientation Not on file documented as of this encounter Plan of Treatment Not on file documented as of this encounter Procedures Procedure Name Priority Date/Time Associated Diagnosis Comments DISCHARGE LABORATORY CUMULATIVE REPORT Routine 12/12/2014 9:09 AM SETTLEMENT CLERK PLASMA HEPATIC FUNCTION PANEL Routine 12/11/2014 3:50 PM SETTLEMENT CLERK documented in this encounter Results * Discharge Laboratory Cumulative Report (12/12/2014 9:09 AM SETTLEMENT CLERK) 12/12/2014 9:09 AM SETTLEMENT CLERK Narrative HISTORICAL RESULTS - 12/12/2014 9:09 AM SETTLEMENT CLERK ? [facility] ? Department of Laboratories ? [facility] ? [place] ?[place] [address] ?[facility] [place] [address] [address] ?[place] [address] Patient Name: ? ALEJO SLADE J Med Rec Number: ?? [id number] Date of : ?1980 Gender/Age: ? Male 34 years Doctor: ? Naresh Hart M.D. Report Date/Time: 12/12/2014 09:09 ?* Abnormal ??C Critical ??f Footnote ??^ Corrected ??L Low ??H High ?i Interp Data ??@ Reference Lab ?Chart Type: Cumulative ? CHEMISTRY ? Standard Blood Chemistry ?12/11/2014 ?15:50:00 Test ?Units ?Reference Total Bilirubin ? 0.5 ? mg/dL ?0.3-1.1 Bilirubin, Direct ? 0.1 ? mg/dL ?0.0-0.3 Plasma Total Protein ??7.7 ? g/dL ? 6.5-8.5 Albumin ? 4.8 ? g/dL ? 3.6-5.0 Alkaline Phosphatase ??63 ?Units/L ??38-126 ALT ? 102 ??H ?Units/L ??7-53 AST ? 39 ?Units/L ??11-47 us Historical Provider MD LAB BLOOD ORDERABLES Lashell l Result HISTORICAL RESULTS * (ABNORMAL) Plasma hepatic function panel (12/11/2014 3:50 PM SETTLEMENT CLERK) Protein, pl 7.7 6.5 - 8.5 g/dl HISTORICAL RESULTS Alb 4.8 3.6 - 5.0 g/dl HISTORICAL RESULTS Bilirubin 0.5 0.3 - 1.1 mg/dl HISTORICAL RESULTS Bilirubin, direct 0.1 0.0 - 0.3 mg/dl HISTORICAL RESULTS Alk phos 63 38 - 126 Units/L HISTORICAL RESULTS AST 39 11 - 47 Units/L HISTORICAL RESULTS ALT 102(H) 7 - 53 Units/L HISTORICAL RESULTS Plasma 12/11/2014 3:50 PM SETTLEMENT CLERK us Naresh Hart MD LAB BLOOD ORDERABLES F inal Result HISTORICAL RESULTS documented in this encounter Visit Diagnoses Diagnosis Other specified abnormal findings of blood chemistry documented in this encounter
--- OUTSIDE RECORDS SUMMARY | 2024-11-06 21:54 | XMS_ITS | Encounter Summary ---
Author Organization [facility] Address [address] [place] [address] Phone Care Team Providers Care Child Care Center Administrator Name Role Phone Naresh Hart MD Primary Care Provider Encounter Details Date Type Department Care Team (Late st Contact Info) Description 07/25/2018 Telephone [facility] Orthopaedic Surgery [address] [facility] [address] [place] [address] Nadia Severino MD [address] [facility] [address] [place] [address] Social History Tobacco Use Types Packs/Day Years Used Date Smoking Tobacco: Never Smokeless Tobacco: Never Alcohol Use Standard Drinks/Week Comments Yes 0 (1 standard drink = 0.6 oz pur e alcohol) Sex and Gender Information Value Date Recorded Sex Assigned at Not on file 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 Severino suspects nerve pain, the radiologists also comment a tendon tear PLAN: - we have two options non operative would be trying physical therapy for the tendon and nerve for 6-8 weeks Or the operative route would be a nerve release with repair of the tendon. This would cause the himto be non weight bearing on crutches for 4 weeks and then in a boot weight bearing for 4-6 weeks. He is going to think about his two options and call back to let us know how he would like to proceed. documented in this encounter Plan of Treatment Not on file documented as of this encounter Visit Diagnoses Not on filedocumented in this encounter Care Teams Child Care Center Administrator Relationship Specialty Start Date End Date Naresh Hart MD PCP - General 04/20/17 07/30/20 documented as of this encounter
--- OUTSIDE RECORDS SUMMARY | 2024-11-06 21:54 | XMS_ITS | Encounter Summary ---
Author Organization [facility] Address [facility] [facility] [address] [place] [address] Phone Care Team Providers Care Paint Stockman Name Role Phone Naresh Hart MD Primary Care Provider Encounter Details Date Type Department Care Team (Late st Contact Info) Description 05/19/2018 Orders Only [facility] [address] [facility] [address] [place] [address] Naresh Hart MD [address] [phone] Right ankle pain, unspecified chronicity (Primary Dx) Social History Tobacco Use Types Packs/Day Years Used Date Smoking Tobacco: Never Sex and Gender Information Value Date Recorded Sex Assigned at Not on file 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
--- OUTSIDE RECORDS SUMMARY | 2024-11-06 21:54 | XMS_ITS | Encounter Summary ---
Author Organization [facility] Facility Care Team Providers Care Upper Doubler Name Role Phone Unavailable Primary Care Provider Unavailabl e Encounter Details Date Type Department Care Team (Late st Contact Info) Description 03/11/2016 - 03/11/2016 11:59 PM CDT Hospital Encounter [facility] Naresh Madrid MD [address] [address] Other specified abnormal findings of blood chemistry Social History Tobacco Use Types Packs/Day Years Used Date Smoking Tobacco: Never Sex and Gender Information Value Date Recorded Sex Assigned at Not on file 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 Gender Identity Not on file Sexual Orientation Not on file documented as of this encounter Plan of Treatment Not on file documented as of this encounter Procedures Procedure Name Priority Date/Time Associated Diagnosis Comments PLASMA HEPATIC FUNCTION PANEL Routine 03/11/2016 8:20 AM CDT DISCHARGE LABORATORY CUMULATIVE REPORT 03/11/2016 documented in this encounter Results * (ABNORMAL) Plasma hepatic function panel (03/11/2016 8:20 AM CDT) Protein, pl 7.3 6.5 - 8.5 g/dl HISTORICAL RESULTS Alb 4.6 3.5 - 5.0 g/dl HISTORICAL RESULTS Bilirubin 0.5 0.1 - 1.2 mg/dl HISTORICAL RESULTS Bilirubin, direct <0.2 0.1 - 0.3 mg/dl HISTORICAL RESULTS Alk phos 59 40 - 130 Units/L HISTORICAL RESULTS AST 32 10 - 50 Units/L HISTORICAL RESULTS ALT 67(H) 7 - 55 Units/L HISTORICAL RESULTS Plasma 03/11/2016 8:20 AM CDT us Naresh Hart MD LAB BLOOD ORDERABLES F inal Result HISTORICAL RESULTS * DISCHARGE LABORATORY CUMULATIVE REPORT (03/11/2016) Narrative 03/11/2016 Ordered by an unspecified provider. us Historical Provider LAB BLOOD ORDERABLES Lashell l Result documented in this encounter Visit Diagnoses Diagnosis Other specified abnormal findings of blood chemistry documented in this encounter
--- OUTSIDE RECORDS SUMMARY | 2024-11-06 21:54 | XMS_ITS | Encounter Summary ---
Author Organization [facility] Address [address] [place] [phone] Phone Care Team Providers Care Audio Visual Collections Coordinator Name Role Phone Naresh Hart MD Primary Care Provider Reason for Visit * Reason Comments Preventative Care Encounter Details Date Type Department Care Team (Late st Contact Info) Description 03/13/2019 9:00 AM CDT Office Visit [address] [address] Naresh Hart MD [address] [address] Preventative health care (Primary Dx); Vitamin D deficiency; Abnormal liver function tests; Overweight; Lumbar radiculopathy; Elevated blood pressure reading Social History Tobacco Use Types Packs/Day Years Used Date Smoking Tobacco: Never Smokeless Tobacco: Never Alcohol Use Standard Drinks/Week Comments Yes 0 (1 standard drink = 0.6 oz pur e alcohol) Sex and Gender Information Value Date Recorded Sex Assigned at Not on file 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 male. Preventative Care HPI Mr. Jade was last seen 03/13/18 for PHE. He notes that he has been doing well and without any acute issues. He is still dealing with his back issues. He continues to have twitching and tingling and thinks that he is losing what is left of his right calf. He is scheduled to see Dr. Hoffman later this week.He saw him last year for similar symptoms and MRI showed no pathology. Mr. Slade has tried acupuncture, saw chiropractor core/PT specialist and going to see another PT person all without obvious benefits. He also has tried myofascial massage therapy and has done this twice. Their focus has been a band around his upper buttock that always seems knotted up. He is using tizanidine and this helps take the edge off and allow him to stretch a bit. He does notfeel that it makes a big difference. He has tried flexeril and this worked initially but then stopped working. He thinks he has been working on losing weight. He feels mainspring former brace end and that he has lost some muscle mass. He has not been monitoring his weight at home. He is cutting out some empty calories and eatingmore salads. He thinks his lack of exercise is slowing down his progress. Patient Active Problem List Diagnosis Date Noted ??? Right ankle pain 03/13/2018 ??? Tinea versicolor 05/04/2016 ??? Sciatica of right side 08/27/2015 ??? Lumbar radiculopathy 03/25/2015 ??? Disorder of lower leg 02/28/2015 ??? Abnormal liver function tests 2014 ??? Low back pain 09/04/2012 Past Medical History: Diagnosis Date ??? History of low back pain ??? History of radiculopathy ??? Radiculopathy of lumbar region Lumbar radiculopathy Past Surgical History: Procedure Laterality Date ??? ANTERIOR CRUCIATE LIGAMENT REPAIR Right 06/2007 Primary Repair Of Knee Ligament Cruciate Anterior - right, Jun 2007 ??? BACK SURGERY N/A 07/2017 Back Surgery - Jul 2017, L5/S1 microdiskectomy with Dr. Mitch Hoffman ??? WISDOM TOOTH EXTRACTION Family History Problem Relation Age of Onset ??? Breast cancer Mother's Sister ??? Heart failure Paternal Grandfather Social History Socioeconomic History ??? Marital status: Spouse name: Not on file ??? Number of children: Not on file ??? Years of education: Not on file ??? Highest education level: Not on file Occupational History ??? 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 Financial resource strain: Not on file ??? Food insecurity: Worry: Not on file Inability: Not on file ??? Transportation needs: Medical: Not on file Non-medical: Not on file Tobacco Use ??? Smoking status: Never Smoker ??? Smokeless tobacco: Never Used Substance and Sexual Activity ??? Alcohol use: Yes ??? Drug use: No ??? Sexual activity: Defer Lifestyle ??? Physical activity: Days per week: Not on file Minutes per session: Not on file ??? Stress: Not on file Relationships ??? Social connections: Talks on phone: Not on file Gets together: Not on file Attends hinduism service: Not on file Active member of club or organization: Not on file Attends meetings of clubs or organizations: Not on file Relationship status: Not on file ??? Intimate partner violence: Fear of current or ex partner: Not on file Emotionally abused: Not on file Physically abused: Not on file Forced sexual activity: Not on file Other Topics Concern ??? 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 Chewing Nicotine-containing Substances : 3 times per day, more at work Alcohol Use (History) : 1-2 drinks per week Exercising Regularly : weight lifting Marital History - Currently : 4 daughters, 10 and 11 girls and 3.5 years (March 2019) Current Outpatient Medications: ??? tiZANidine (ZANAFLEX) 4 mg tablet, Take 1 tablet (4 mg total) by mouth every 8 (eight) hours asneeded for muscle spasms., Disp: 90 tablet, Rfl: 0 Allergies Allergen Reactions ??? Penicillins Rash Immunization History Administered Date(s) Administered ??? TD Preservative Free 11/07/2004 ??? Tdap 05/09/2013 Review of Systems Constitutional: Negative for activity change, appetite change, chills, diaphoresis, fatigue, fever and unexpected weight change. HENT: Negative for hearing loss, postnasal drip, sinus pressure and sore throat. Eyes: Negative for pain and visual disturbance. Respiratory: Negative for cough, chest tightness, shortness of breath and wheezing. Cardiovascular: Negative for chest pain, palpitations and leg swelling. Gastrointestinal: Negative for abdominal pain, constipation, diarrhea, nausea and vomiting. Endocrine: Negative for cold intolerance, heat intolerance, polydipsia and polyuria. Genitourinary: Negative for dysuria, frequency and urgency. Musculoskeletal: Negative for arthralgias, back pain, joint swelling and myalgias. Skin: Negative for rash. Neurological: Negative for dizziness, weakness, light-headedness, numbness and headaches. Hematological: Negative for adenopathy. Psychiatric/Behavioral: Negative for agitation, confusion, hallucinations and sleep disturbance. The patient is not nervous/anxious. Physical Exam BP 140/80 Pulse 86 Temp 36.4 ??C (97.5 ??F) Ht 186.9 cm (6' 1.6 ) Wt 115.1 kg (253 lb 11.2 oz) SpO2 95% BMI 32.93 kg/m?? BP recheck, LUE sitting, 136/90 mm Hg Physical Exam Constitutional: He is oriented to person, place, and time. He appears well- developed and well-nourished. No distress. HENT: Head: Normocephalic and atraumatic. Right Ear: External ear normal. Left Ear: External ear normal. Nose: Nose normal. Mouth/Throat: Oropharynx is clear and moist. No oropharyngeal exudate. Eyes: Pupils are equal, round, and reactive to light. Conjunctivae and EOM are normal. Neck: Normal range of motion. Neck supple. No thyromegaly present. Cardiovascular: Normal rate, regular rhythm, normal heart sounds and intact distal pulses. Exam reveals no gallop and no friction rub. No murmur heard. Pulmonary/Chest: Effort normal and breath sounds normal. No respiratory distress. He has no wheezes. He has no rales. He exhibits no tenderness. Abdominal: Soft. Bowel sounds are normal. He exhibits no distension. There is no hepatosplenomegaly. There is no tenderness. Musculoskeletal: Normal range of motion. He exhibits no edema. Lymphadenopathy: He has no cervical adenopathy. Neurological: He is alert and oriented to person, place, and time. He displays normal reflexes. No cranial nerve deficit or sensory deficit. Skin: Skin is warm and dry. No rash noted. He is not diaphoretic. No erythema. Psychiatric: He has a normal mood and affect. His behavior is normal. Judgment and thought content normal. Vitals reviewed. Health Maintenance Topic Date Due ??? Influenza Vaccine (Season Ended) 2019 ??? Depression Screening-PHQ 03/13/2020 ??? Regular Well Visit/Exam 03/13/2020 ??? DTaP/Tdap/Td Vaccine (2 - Td) 05/09/2023 HEALTH MAINTENANCE: Vaccines: Annual flu shot: recommended annually and discussed screening recommendations Tdap: up to date and discussed screening recommendations Assessment/Plan Diagnoses and all orders for this visit: Preventative health care (Primary) - CBC with auto differential; Future - Comprehensive metabolic panel; Future - Lipid panel; Future - TSH reflex to free T4; Future - Vitamin D 25 hydroxy; Future Vitamin D deficiency - Vitamin D 25 hydroxy; Future Abnormal liver function tests - Comprehensive metabolic panel; Future Overweight Comments: he is open to working on weight coming down. He thinks that getting down 20 lbs in the next year isdo-able. Lumbar radiculopathy Comments: following up with Dr. Hoffman later this week. Elevated blood pressure reading Comments: bp is a bit high here, start out of office checks. Follow up in 1 year or sooner PRN Naresh Hart MD documented in this encounter Plan of Treatment Not on file documented as of this encounter Procedures Procedure Name Priority Date/Time Associated Diagnosis Comments THYROID FUNCTION CASCADE Routine 06/14/2019 8:40 AM CDT Preventative health care CBC WITH AUTO DIFFERENTIAL Routine 06/14/2019 8:40 AM CDT Preventative health care VITAMIN D 25 HYDROXY Routine 06/14/2019 8:40 AM CDT Preventative health care Vitamin D deficiency LIPID PANEL Routine 06/14/2019 8:40 AM CDT Preventative health care COMPREHENSIVE METABOLIC PANEL Routine 06/14/2019 8:40 AM CDT Preventative health care Abnormal liver function tests documented in this encounter Results * (ABNORMAL) Vitamin D 25 hydroxy (06/14/2019 8:40 AM CDT) Pathologist [facility] Vitamin D 25-OH 27(L) 30 - 100 ng/mL [employer] [facility] - [place] Comment: Vitamin D Status ? 25-OH Vitamin D: Deficiency: ?<20 ng/mL Insufficiency: ? 20 - 29 ng/mL Optimal: ? > or = 30 ng/mL For 25-OH Vitamin D testing on patients on D2-supplementation and patients for whom quantitation of D2 and D3 fractions is required, the QuestAssureD(TM) 25-OH VIT D, (D2,D3), LC/MS/MS is recommended: order code 67379 (patients >2yrs). For more information on this test, go to: http://education.[employer]/faq/FQF224 (This link is being provided for informational/educational purposes only.) Blood specimen (specimen) 06/14/2019 8:40 AM CDT 06/14/2019 8:41 AM CDT Narrative [facility] - 06/15/2019 3:11 AM CDT FASTING:YES FASTING: YES Resulting Agency Comment Performing Organization Information: ?Site ID: [id number] ?Name: [id number] ?Address: [address] [address] ?Director: Immanuel Arambula D.O. MPH Naresh Hart MD LAB BLOOD ORDERABLES F inal Result Performing Organization Address [facility] Co de Phone Number [facility] [place] * TSH reflex to free T4 (06/14/2019 8:40 AM CDT) [facility] TSH 1.21 0.40 - 4.50 mIU/L [facility] - [place] Blood specimen (specimen) 06/14/2019 8:40 AM CDT 06/14/2019 8:41 AM CDT Narrative [facility] - 06/15/2019 3:11 AM CDT FASTING:YES FASTING: YES Resulting Agency Comment Performing Organization Information: ?Site ID: [id number] ?Name: [id number] ?Address: [address] [place] [address] [place] [phone] ?Director: Immanuel Arambula D.O., MPH Naresh Hart MD LAB BLOOD ORDERABLES F inal Result Performing Organization Address [facility] de Phone Number [facility] [place] * (ABNORMAL) Lipid panel (06/14/2019 8:40 AM CDT) [facility] Cholesterol 152 <200 mg/dL [facility] [place] HDL 38(L) >40 mg/dL [facility] [place] Triglycerides 142 <150 mg/dL [facility] [place] LDL 90 mg/dL (calc) [facility] [place] Comment: Reference range: <100 Desirable range <100 mg/dL for primary prevention; ?? <70 mg/dL for patients with CHD or diabetic patients with > or = 2 CHD risk factors. LDL-C is now calculated using the Alberto calculation, which is a validated novel method providing better accuracy than the Friedewald equation in the estimation of LDL-C. Alejo PARKER et al. JONATHAN. 2013;310(19): 4448-1998 (http://education.[employer]/faq/TUD883) Chol/HDL ratio 4.0 <5.0 (calc) [facility] [place] Non-HDL, (LDL+VLDL) 114 <130 mg/dL (calc) [facility] [place] Comment: For patients with diabetes plus 1 major ASCVD risk factor, treating to a non-HDL-C goal of <100 mg/dL (LDL-C of <70 mg/dL) is considered a therapeutic option. Blood specimen (specimen) 06/14/2019 8:40 AM CDT 06/14/2019 8:41 AM CDT Narrative [facility] - 06/15/2019 3:11 AM CDT FASTING:YES FASTING: YES Resulting Agency Comment Performing Organization Information: ?Site ID: [id number] ?Name: [id number] ?Address: [id number] [place] [address] [place] [phone] ?Director: Immanuel Arambula D.O., MPH us Naresh Hart MD LAB BLOOD ORDERABLES F inal Result [facility] [place] * (ABNORMAL) Comprehensive metabolic panel (06/14/2019 8:40 AM CDT) Glucose 99 65 - 99 mg/dL [facility] [place] Comment: ? Fasting reference interval BUN 16 7 - 25 mg/dL [facility] [place] Creatinine 1.08 0.60 - 1.35 mg/dL [facility] [place] eGFR NON-AFR. GAMBIAN 85 > OR = 60 mL/min/1. 73m2 [facility] [place] EGFR 99 > OR = 60 mL/min/1. 73m2 [facility] [place] BUN/creat ratio NOT APPLICABLE 6 - 22 (calc) [facility] [place] Sodium 140 135 - 146 mmol/L [facility] [place] Potassium, pl 4.4 3.5 - 5.3 mmol/L [facility] [place] Chloride 104 98 - 110 mmol/L [facility] [place] CO2 26 20 - 32 mmol/L [facility] [place] Calcium 9.7 8.6 - 10.3 mg/dL [facility] [place] Protein, sr 6.9 6.1 - 8.1 g/dL [facility] [place] Albumin 4.5 3.6 - 5.1 g/dL [facility] [place] GLOBULIN 2.4 1.9 - 3.7 g/dL (calc) [facility] [place] Alb/glob ratio 1.9 1.0 - 2.5 (calc) [facility] [place] Bilirubin, total 0.7 0.2 - 1.2 mg/dL [facility] [place] Alk phos 51 40 - 115 U/L [facility] [place] AST 28 10 - 40 U/L [facility] [place] ALT (SGPT) 62(H) 9 - 46 U/L [facility] [place] Blood specimen (specimen) 06/14/2019 8:40 AM CDT 06/14/2019 8:41 AM CDT Narrative [facility] - 06/15/2019 3:11 AM CDT FASTING:YES FASTING: YES Resulting Agency Comment Performing Organization Information: ?Site ID: [id number] ?Name: [facility] ?Address: [address] [place] [address] [place] [phone] ?Director: Immanuel Arambula D.O., MPH us Naresh Hart MD LAB BLOOD ORDERABLES F inal Result [facility] [place] * CBC with auto differential (06/14/2019 8:40 AM CDT) WBC 5.4 3.8 - 10.8 Thousand/u L [facility] [place] RBC, POC 4.90 4.20 - 5.80 Million/uL [facility] [place] Hgb 15.2 13.2 - 17.1 g/dL [facility] [place] Hct 44.5 38.5 - 50.0 % [facility] [place] MCV 90.8 80.0 - 100.0 fL [facility] [place] MCH 31.0 27.0 - 33.0 pg [facility] [place] MCHC 34.2 32.0 - 36.0 g/dL [facility] [place] Rdw 12.5 11.0 - 15.0 % [facility] [place] Platelets 289 140 - 400 Thousand/u L [facility] [place] MPV 9.1 7.5 - 12.5 fL [facility] [place] Neutrophils, abs 2,889 1,500 - 7,800 cells/uL [facility] [place] Lymphocytes, abs 1,928 850 - 3,900 cells/uL [facility] [place] Monocyte abs 502 200 - 950 cells/uL [facility] [place] Eosinophils, abs 59 15 - 500 cells/uL [facility] [place] Basophils, abs 22 0 - 200 cells/uL [facility] [place] Neutrophils 53.5 % [facility] [place] Lymphocyte pct 35.7 % [facility] [place] Monocytes 9.3 % [facility] [place] Eosinophils 1.1 % [facility] [place] Basophils 0.4 % [facility] [place] Blood specimen (specimen) 06/14/2019 8:40 AM CDT 06/14/2019 8:41 AM CDT Narrative [facility] - 06/15/2019 3:11 AM CDT FASTING:YES FASTING: YES Resulting Agency Comment Performing Organization Information: ?Site ID: [place] [address] ?Name: [facility] ?Address: [address] [place] [address] [place] [address] ?Director: Immanuel Arambula D.O., MPH us Naresh Hart MD LAB BLOOD ORDERABLES F inal Result [facility] [place] documented in this encounter Visit Diagnoses Diagnosis Preventative health care- Primary Routine general medical examination at a health care facility Vitamin D deficiency Abnormal liver function tests Overweight Lumbar radiculopathy Thoracic or lumbosacral neuritis or radiculitis, unspecified Elevated blood pressure reading Elevated blood pressure reading without diagnosis of hypertension documented in this encounter Care Teams Audio Visual Collections Coordinator Relationship Specialty Start Date End Date Naresh Hart MD PCP - General 04/20/17 07/30/20 documented as of this encounter
--- OUTSIDE RECORDS SUMMARY | 2024-11-06 21:54 | XMS_ITS | Encounter Summary ---
Author Organization [facility] Address [address] [place] [address] [address] [place] [address] Phone Care Team Providers Care Cooking Show Host Name Role Phone Naresh Hart MD Primary Care Provider Encounter Details Date Type Department Care Team (Late st Contact Info) Description 04/28/2018 Telephone [facility] [address] [facility] [address] [place] [address] Naresh Hart MD [address] [id number] Social History Tobacco Use Types Packs/Day Years Used Date Smoking Tobacco: Never Sex and Gender Information Value Date Recorded Sex Assigned at Not on file 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 Jerome is a good project development leader. If you want a second opinion we can give you ortho foot ([facility]) * Telephone Encounter - Kayla Mazariegos - 04/28/2018 11:36 AM CDT [place] us [place] saw dr jerome with ankle issue had an mri and it is a growth he recommended surg and dr duddy can do Wanted your opinion about this documented in this encounter Plan of Treatment Not on file documented as of this encounter Visit Diagnoses Not on filedocumented in this encounter Care Teams Cooking Show Host Relationship Specialty Start Date End Date Naresh Hart MD PCP - General 04/20/17 07/30/20 documented as of this encounter
--- OUTSIDE RECORDS SUMMARY | 2024-11-06 21:54 | XMS_ITS | Encounter Summary ---
Author Organization [facility] Healthcare Address [address] [place] [address] Care Team Providers Care Cabinetmaker Apprentice Name Role Phone Naresh Hart MD Primary Care Provider Encounter Details Date Type Department Care Team (Latest Contact Info) Description 07/17/2018 11:25 AM CDT - 07/17/2018 11:26 AM CDT Hospital Encounter [facility] [address] [place] [id number] Discharge Disposition: Discharge to home or self care Social History Tobacco Use Types Packs/Day Years Used Date Smoking Tobacco: Never Smokeless Tobacco: Never Alcohol Use Standard Drinks/Week Comments Yes 0 (1 standard drink = 0.6 oz pur e alcohol) Sex and Gender Information Value Date Recorded Sex Assigned at Not on file Legal Sex 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 Gender Identity Not on file Sexual Orientation Not on file 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 Not on file documented as of this encounter Medications at Time of Discharge Medication Sig Dispense Quantity Refills Last Filled Start D ate End Date tiZANidine (ZANAFLEX) 4 mg tablet 07/02/2018 07/28/2018 documented as of this encounter Discharge Disposition Disposition Code Departure Means Destination Discharge to home or self care documented in this encounter Plan of Treatment Not on file documented as of this encounter Procedures Procedure Name Priority Date/Time Associated Diagnosis Comments MSK CT MR OUTSIDE CONSULT Routine 07/17/2018 11:25 AM CDT Diagnosis unknown documented in this encounter Results * MSK CT MR Outside Consult (07/17/2018 11:25 AM CDT) Anatomical Region Laterality Modality N/A Computed Tomogra phy 07/17/2018 11:5 7 AM CDT Impressions 07/17/2018 1:00 PM CDT 1. ??Short segment split tear of the right posterior tibialis tendon just proximal to the accessory navicular. 2. Right posterior ankle multilobulated fluid likely within the joint recess and not a ganglion cyst. 3. Mild chronic atrophy of the right abductor digit minimi. The findings, conclusions and recommendations within this report do not replace the initial findings, conclusions ??and recommendations made at the facility where the study was performed based upon the imaging and clinical condition at that time. ??Comparison with the prior report and clinical history is necessary. ??The provided images may or may not represent the [facility] [place] [facility] source data set and thus may contain changes that may lower the accuracy of this second-opinion interpretation. Electronically signed by: Yash Holcomb M.D. Narrative 07/17/2018 1:00 PM CDT EXAMINATION: RADIOLOGY CONSULTATION ON OUTSIDE IMAGING STUDY STUDY INITIALLY PERFORMED: 03/21/2018 at [facility]. TYPE OF STUDY: Multiple MR of the right ankle images of without contrast are provided at the time of this interpretation. CONTRAST INFORMATION: No contrast was administered. The protocol was adequate to address the clinical question. The outside final report was not available at the time of this second opinion interpretation. TYPE OF CONSULTATION: Consult on outside imaging study with images submitted through [facility] DATE OF CONSULTATION: 07/17/2018 11:30 AM HISTORY: 37-year-old male with right ankle pain for 2 years. ??Request is made for evaluation of the posterior subtalar joint and tarsal tunnel. COMPARISON: Comparison is made to previous foot radiograph from earlier today. FINDINGS: Medially, the posterior tibial tendon, flexor digitorum longus and flexor hallucis longus tendons are intact. The deep and superficial deltoid ligaments appear normal. ??There is a small split tear of the posterior tibial tendon just proximal to the accessory navicular at the medial malleolus. ?? Laterally, the peroneal tendons and superior peroneal retinaculum appear normal. The anterior talofibular ligament and calcaneofibular ligament are intact. The syndesmotic ligaments also appear normal. Posteriorly, the Achilles tendon has mild distal tendinopathy without tear. There is no evidence of retrocalcaneal bursitis. The anterior ankle extensors are intact. The plantar fascia appears normal. The calcaneus appears intrinsically normal. ??There is mild atrophy of the abductor digit minimi, otherwise the intrinsic musculature of the foot appears normal. The contents of the tarsal tunnel and sinus tarsi appear normal. There is a multilobulated fluid within the posterior ankle. ??A physiologic amount of fluid is present in the ankle and subtalar joints. There is normal marrow signal intensity within the bones. The talar dome appears normal without evidence of osteochondral defect. There is no mass or mass effect. The subcutaneous tissues appear normal. ?? Procedure Note Yash Holcomb MD - 07/17/2018 EXAMINATION: RADIOLOGY CONSULTATION ON OUTSIDE IMAGING STUDY STUDY INITIALLY PERFORMED: 03/21/2018 at [facility]. TYPE OF STUDY: Multiple MR of the right ankle images of without contrast are provided at the time of this interpretation. CONTRAST INFORMATION: No contrast was administered. The protocol was adequate to address the clinical question. The outside final report was not available at the time of this second opinion interpretation. TYPE OF CONSULTATION: Consult on outside imaging study with images submitted through [facility] DATE OF CONSULTATION: 07/17/2018 11:30 AM HISTORY: 37-year-old male with right ankle pain for 2 years. Request is made for evaluation of the posterior subtalar joint and tarsal tunnel. COMPARISON: Comparison is made to previous foot radiograph from earlier today. FINDINGS: Medially, the posterior tibial tendon, flexor digitorum longus and flexor hallucis longus tendons are intact. The deep and superficial deltoid ligaments appear normal. There is a small split tear of the posterior tibial tendon just proximal to the accessory navicular at the medial malleolus. Laterally, the peroneal tendons and superior peroneal retinaculum appear normal. The anterior talofibular ligament and calcaneofibular ligament are intact. The syndesmotic ligaments also appear normal. Posteriorly, the Achilles tendon has mild distal tendinopathy without tear. There is no evidence of retrocalcaneal bursitis. The anterior ankle extensors are intact. The plantar fascia appears normal. The calcaneus appears intrinsically normal. There is mild atrophy of the abductor digit minimi, otherwise the intrinsic musculature of the foot appears normal. The contents of the tarsal tunnel and sinus tarsi appear normal. There is a multilobulated fluid within the posterior ankle. A physiologic amount of fluid is present in the ankle and subtalar joints. There is normal marrow signal intensity within the bones. The talar dome appears normal without evidence of osteochondral defect. There is no mass or mass effect. The subcutaneous tissues appear normal. IMPRESSION: 1. Short segment split tear of the right posterior tibialis tendon just proximal to the accessory navicular. 2. Right posterior ankle multilobulated fluid likely within the joint recess and not a ganglion cyst. 3. Mild chronic atrophy of the right abductor digit minimi. The findings, conclusions and recommendations within this report do not replace the initial findings, conclusions and recommendations made at the facility where the study was performed based upon the imaging and clinical condition at that time. Comparison with the prior report and clinical history is necessary. The provided images may or may not represent the [place] band source data set and thus may contain changes that may lower the accuracy of this second-opinion interpretation. Electronically signed by: Yash Holcomb M.D. Nadia Severino MD IMG CT PROCEDURES Lashell l Result documented in this encounter Visit Diagnoses Not on filedocumented in this encounter Care Teams Cabinetmaker Apprentice Relationship Specialty Start Date End Date Naresh Hart MD PCP - General 04/20/17 07/30/20 documented as of this encounter
--- OUTSIDE RECORDS SUMMARY | 2024-11-06 21:54 | XMS_ITS | Encounter Summary ---
Author Organization [facility] Healthcare Address [address] [place] [address] Care Team Providers Care Train Station Server Name Role Phone Naresh Hart MD Primary Care Provider Reason for Referral * Diagnostic Imaging (Routine) - Closed Specialty Diagnoses / Procedures Referred By Kevyn welch Referred To Contact Diagnoses Elevated LFTs Procedures US Abdomen Complete Naresh Hart MD Phone: tel: fax: [facility] (All Locations) Referral ID Status Reason Start Date Expiration Date Visits Re quested Visits Authorized [id number] Closed 07/20/2019 01/28/2021 1 1 Reason for Visit * Diagnostic Imaging (Routine) - Closed Specialty Diagnoses / Procedures Referred By Kevyn welch Referred To Contact Diagnoses Elevated LFTs Procedures US Abdomen Complete Naresh Hart MD Phone: tel: fax: [facility] (All Locations) Referral ID Status Reason Start Date Expiration Date Visits Re quested Visits Authorized [id number] Closed 07/20/2019 01/28/2021 1 1 Encounter Details Date Type Department Care Team (Latest Contact Info) Description 08/23/2019 10:08 AM CDT - 08/23/2019 11:59 PM CDT Hospital Encounter [facility]) [address] [place] [address] Naresh Hart MD [address] [address] Elevated LFTs Discharge Disposition: Discharge to home or self [...] on file 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 Gender Identity Not on file Sexual Orientation Not on file 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 Not on file documented as of this encounter Medications at Time of Discharge tiZANidine (ZANAFLEX) 4 mg tablet Take 1 tablet (4 mg total) by mouth every 8 (eight) hours as needed for muscle spasms 90 tablet 04/30/2019 01/16/2020 documented as of this encounter Discharge Disposition Disposition Code Departure Means Destination Discharge to home or self care documented in this encounter Plan of Treatment Not on file documented as of this encounter Procedures Procedure Name Priority Date/Time Associated Diagnosis Comments US ABDOMEN COMPLETE Schedule Routine, Read Routine (OP Routine) 08/23/2019 11:05 AM CDT Elevated LFTs documented in this encounter Results * US Abdomen Complete [...] in this encounter Visit Diagnoses Diagnosis Elevated LFTs Other abnormal blood chemistry documented in this encounter Care Teams Train Station Server Relationship Specialty Start Date End Date Naresh Hart MD PCP - General 04/20/17 07/30/20 documented as of this encounter
--- OUTSIDE RECORDS SUMMARY | 2024-11-06 21:54 | XMS_ITS | Encounter Summary ---
Author Organization [facility] [place] [facility] Address [address] [place] [address] Phone Care Team Providers Care Product Technology Scientist Name Role Phone Naresh Hart MD Primary Care Provider Reason for Referral * Diagnostic Imaging (Routine) - Closed Specialty Diagnoses / Procedures Referred By Contac t Referred To Contact Diagnoses Right foot pain Procedures XR Foot Right 3 or More Views Nadia Severino MD Phone: tel: fax: [facility] Referral ID Status Reason Start Date Expiration Date Visits Re quested Visits Authorized [id number] Closed 07/17/2018 01/26/2020 1 1 Reason for Visit * Reason Comments Pain Encounter Details Date Type Department Care Team (Late st Contact Info) Description 07/17/2018 8:00 AM CDT Office Visit [facility] Orthopaedic Surgery [address] [place] [address] Nadia Severino MD [address] [place] [address] Right foot pain (Primary Dx); Chronic pain of right ankle Social History Tobacco Use Types Packs/Day Years Used Date Smoking Tobacco: Never Smokeless Tobacco: Never Alcohol Use Standard Drinks/Week Comments Yes 0 (1 standard drink = 0.6 oz pur e alcohol) Sex and Gender Information Value Date Recorded Sex Assigned at Not on file 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 Gender Identity Not on file Sexual Orientation Not on file 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 year old male with a complaint of right ankle pain. He first began having pain 2 years ago, with no history of specific injury or inciting event. The pain is located at the medial ankle. He describes it as a a dull aching pain, of mild severity at baseline but is severe at times. The pain is worse with touch and weightbearing. He has tried ibuprofen with minimal relief. He saw a stretcher drier operator for this problem once but did not pursue any formal treatment. He denies numbnessin the right lower extremity. PAST MEDICAL HISTORY Past Medical History: Diagnosis Date ??? Melanocytic nevus Multiple nevi - (Added by TW Conv) ??? Other hypertrophic disorders of the skin Acrochordon - (Added by TW Conv) ??? Personal history of other benign neoplasm History of dysplastic nevus - (Added by TW Conv) ??? Personal history of other diseases of the musculoskeletal system and connective tissue History of low back pain - (Added by TW Conv) ??? Personal history of other diseases of the nervous system and sense organs History of radiculopathy - (Added by TW Conv) ??? Radiculopathy of lumbar region Lumbar radiculopathy - (Added by TW Conv) PAST SURGICAL HISTORY Past Surgical History: Procedure Laterality Date ??? ANTERIOR CRUCIATE LIGAMENT REPAIR Primary Repair Of Knee Ligament Cruciate Anterior - right, Jun 2007 (Added by TW Conv) ??? BACK SURGERY Back Surgery - Jul 2017, L5/S1 microdiskectomy with Dr. Mitch Hoffman (Added by TW Conv) ??? WISDOM TOOTH EXTRACTION Oral Surgery Tooth Extraction [place] Tooth - (Added by TW Conv) INITIAL REVIEW OF MEDICATIONS No current outpatient prescriptions on file prior to visit. No current facility-administered medications on file prior to visit. DRUG ALLERGIES Allergies Allergen Reactions ??? Penicillins Rash SOCIAL HISTORY History Smoking Status ??? Never Smoker Smokeless Tobacco ??? Never Used History Alcohol Use ??? 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 FAMILY HISTORY Family History Problem Relation Age of Onset ??? Breast cancer Mother's Sister Breast Cancer - (Added by TW Conv) ??? Heart failure Paternal Grandfather Congestive Heart Failure - (Added by TW Conv) REVIEW OF SYSTEMS Review of Systems Constitutional: Negative. HENT: Negative. Eyes: Negative. Respiratory: Negative. Cardiovascular: Negative. Gastrointestinal: Negative. Genitourinary: Negative. Musculoskeletal: Negative. Skin: Negative. Neurological: Negative. Endo/Heme/Allergies: Negative. Psychiatric/Behavioral: Negative. All other systems reviewed and are negative. - 12 point review of systems performed and was negative except as above. PHYSICAL EXAMINATION The patient is 6'1 tall and weighs 250 pounds. He is alert and in no acute distress. Respirations are normal and hearing is intact to spoken word. Gait is normal. There is mild swelling of the rightankle. There is tenderness to palpation of the posterior tibial tendon insertion and inframalleolarregion. There is no tenderness to palpation of the peroneal tendons, Achilles tendon, or forefoot. There are no skin rashes or lesions on bilateral lower extremities. Hindfoot alignment is varus on the right, neutral on the left. On seated exam, there is intact dorsiflexion, plantar flexion, inversion and eversion. Strength is 5 out of 5 throughout bilaterally. Sensation is intact to light touch over both feet. There are palpable dorsalis pedis and posterior tibial pulses bilaterally. Ankle range of motion on right: dorsiflexion to neutral with the knee extended and flexed, plantar flexion to 50 degrees. Inversion 15 degrees, eversion 5 degrees. Ankle range of motion on the left: dorsiflexion to 10 degrees past neutral with the knee extended and flexed, plantar flexion to 50 degrees. Inversion 30 degrees, eversion 15 degrees. Please refer to [address] Severino's addendum for radiographic assessment, impression, and plan. Daniel Fox MD Orthopedic Surgery Resident NEW PATIENT VISIT ATTENDING ADDENDUM This is an addendum to a note dictated by the Resident Physician CHIEF COMPLAINT Right ankle pain HISTORY OF PRESENT ILLNESS The patient is a 37 y.o. year old patient with complaints of medial-sided ankle pain this been going on for two years. He also has a long history of a herniated disc in his back that has led to significant weakness in his right leg. He is here today for evaluation and treatment. He saw someone elsewho suggested that ???it needed to be taken out?? . Sounds like he was diagnosed with some sort of soft tissue mass. He does have an area of swelling. He states that it is getting a little bigger over time. He is also having some dorsal lateral foot pain. He does not have diabetes. He is not a smoker. He has not had any specific treatment for this.. Past Medical History, Past Surgical History, Medications, Allergies, Social History, Family Historyand ROS: These have been reviewed in full in the patient chart. PHYSICAL EXAMINATION I have examined the patient with the Resident physcian and I concur with the findings noted. He does have an area that almost feels like a palpable soft tissue mass on the medial side of his ankle. Is directly over the neurovascular bundle and adjacent to the posterior tibial tendon. He is tender at both the tendon and the neurovascular bundle. It is very localized tenderness. He is nontender distally at the tarsal tunnel. He has no tenderness at the posterior tibial tendon insertion. Heis unable to do a single limb heel rise on that side but he has severe calf atrophy on the right compared to the left related to his spine problem. REVIEW OF X-RAYS/STUDIES Radiographs are ordered and reviewed today by me of the right foot. AP, lateral and oblique views of the right foot show no significant bony abnormalities. He brings with him an MRI. His marker is placed directly over the area of his pain. I do not see anobvious soft tissue mass. There is fluid in the posterior subtalar joint but no obvious abnormalityof tendon, the joint or bone in that region. IMPRESSION/DIAGNOSIS Right ankle pain TREATMENT/PLAN I would like to have a read of the MRI by our radiologist to see if they see something specific in the tarsal tunnel in that area. His physical exam would be consistent with a ganglion cyst causing tarsal tunnel impingement. However, I simply do not see that on his MRI. If the MRI is essentially negative then I will recommend an ultrasound to further evaluate the soft tissue mass. We have discussed all this today. He will continue conservative treatment until we call him with the results of theMRI reading. We will plan further treatment from there. The patient was encouraged to call us if any questions or concerns arise. FOLLOW UP Follow up: We will call him with results of the MRI Nadia Severino MD [employer] Retailer Sales Consultant Foot & Ankle Service [facility] Orthopedics Scholarship Counselor completed by [employer]. Scholarship Counselor variances may occur. documented in this encounter Plan of Treatment Not on file documented as of this encounter Results * XR Foot Right 3 or More Views (07/17/2018 8:30 AM CDT) Anatomical Region Laterality Modality Lower Extremities, Foot Right Computed Radiography 07/17/2018 8:35 AM CDT Impressions 07/17/2018 8:35 AM CDT 1. 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 Electronically signed by: Jeremias Smallwood M.D. Narrative 07/17/2018 8:35 AM CDT EXAMINATION: XR FOOT RIGHT 3 OR MORE VIEWS HISTORY: Right foot pain FINDINGS: A 3 view weightbearing examination of the right foot is digitally acquired. ??There are no prior studies for comparison. There is no fracture. ??There is mild great toe metatarsophalangeal joint osteoarthritis. ??There is heterotopic ossification at the Achilles insertion. ??There is no soft tissue swelling of the foot. Procedure Note Jeremias Smallwood MD - 07/17/2018 EXAMINATION: XR FOOT RIGHT 3 OR MORE VIEWS HISTORY: Right foot pain FINDINGS: A 3 view weightbearing examination of the right foot is digitally acquired. There are no prior studies for comparison. There is no fracture. There is mild great toe metatarsophalangeal joint osteoarthritis. There is heterotopic ossification at the Achilles insertion. There is no soft tissue swelling of the foot. IMPRESSION: 1. 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 Electronically signed by: Jeremias Smallwood M.D. us Nadia Severino MD IMG XR PROCEDURES Lashell l Result documented in this encounter Visit Diagnoses Diagnosis Right foot pain- Primary Pain in soft tissues of limb Chronic pain of right ankle Right foot pain Pain in soft tissues of limb documented in this encounter Historical Medications * This list may reflect changes made after this encounter. Medication Sig Dispense Quantity Refills Last Filled Start D ate End Date tiZANidine (ZANAFLEX) 4 mg tablet 07/02/2018 07/28/2018 added in this encounter Care Teams Product Technology Scientist Relationship Specialty Start Date End Date Naresh Hart MD PCP - General 04/20/17 07/30/20 documented as of this encounter
--- OUTSIDE RECORDS SUMMARY | 2024-11-06 21:54 | XMS_ITS | Encounter Summary ---
Author Organization [facility] Clinical [facility] Address [address] [place] [address] [address] [place] [address] Phone Care Team Providers Care Journeyman Pipefitter Name Role Phone Naresh Hart MD Primary Care Provider Encounter Details Date Type Department Care Team (Late st Contact Info) Description 07/28/2018 Telephone [facility] [address] [address] Naresh Hart MD [address] [phone] Social History Tobacco Use Types Packs/Day Years Used Date Smoking Tobacco: Never Smokeless Tobacco: Never Alcohol Use Standard Drinks/Week Comments Yes 0 (1 standard drink = 0.6 oz pur e alcohol) Sex and Gender Information Value Date Recorded Sex Assigned at Not on file 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 90 tablet 07/28/2018 01/08/2019 documented in this encounter Miscellaneous Notes * Telephone Encounter - Laura Del Toro - 07/28/2018 5:13 PM CDT IN PROGRESS-CR * Telephone Encounter - Laura Del Toro - 07/28/2018 5:12 PM CDT Left message for patient to call back with pharmacy information.-CR * Telephone Encounter - Naresh Hart MD - 07/28/2018 5:00 PM CDT Ordered, but no pharmacy. Needs to be called in. * Telephone Encounter - Laura Del Toro - 07/28/2018 4:29 PM CDT Had back surgery done by Dr. Hoffman and he had been prescribing muscle relaxers to help with the tightness around the area where he had surgery. Recently called for a refillof his medication but itwas denied by Dr. Hoffman. Patient said Dr. Hoffman's office told him that the doctor only prescribes medication for short period following surgical. Requesting that Dr. Hart Prescribe something for him, does not remember what Dr. Hoffman was prescribing. documented in this encounter Plan of Treatment Not on file documented as of this encounter Visit Diagnoses Not on filedocumented in this encounter Discontinued Medications Medication Sig Discontinue Reason Start Date End Da te tiZANidine (ZANAFLEX) 4 mg tablet Reorder 07/02/2018 07/28/2018 documented as of this encounter Care Teams Journeyman Pipefitter Relationship Specialty Start Date End Date Naresh Hart MD PCP - General 04/20/17 07/30/20 documented as of this encounter
--- OUTSIDE RECORDS SUMMARY | 2024-11-06 21:54 | XMS_ITS | Encounter Summary ---
Author Organization [facility] Care Team Providers Care Order To Delivery Supervisor Name Role Phone Unavailable Primary Care Provider Unavailabl e Encounter Details Date Type Department Care Team (Late st Contact Info) Description 05/22/2007 12:00 PM CDT - 05/22/2007 2:43 PM CDT Hospital Encounter [facility] Dav Anguiano Sprain and strain of medial collateral ligament of knee; Tear of medial cartilage or meniscus of knee, current; Place of occurrence, industrial places and premises Social History Tobacco Use Types Packs/Day Years Used Date Smoking Tobacco: Never Assessed Sex and Gender Information Value Date Recorded Sex Assigned at Not on file 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
--- OUTSIDE RECORDS SUMMARY | 2024-11-06 21:54 | XMS_ITS | Encounter Summary ---
Author Organization [facility] Facility Care Team Providers Care Director Veterinary Name Role Phone Unavailable Primary Care Provider Unavailabl e Encounter Details Date Type Department Care Team (Late st Contact Info) Description 04/30/2015 - 04/30/2015 11:59 PM CDT Hospital Encounter [facility] Rafael Reyes MD [address] [facility] [address] [place] [address] Low back pain; Thoracic or lumbosacral neuritis or radiculitis; Degeneration of lumbar or lumbosacral intervertebral disc Social History Tobacco Use Types Packs/Day Years Used Date Smoking Tobacco: Never Assessed Sex and Gender Information Value Date Recorded Sex Assigned at Not on file 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 FINAL REPORT ACC# ??Date Time ??Exam [id number] Apr 30, 2015 07:43:00 [id number] Spine Lumbar min 4 views EXAMINATION: ? 1. Lumbar spine minimum 4 views HISTORY: ??Low back pain. Lumbar spondylosis. FINDINGS: ?? AP, lateral, flexion, and extension views of the lumbar spine were obtained. Comparison is made to lumbar spine MRI March 15, 2015. There are 5 nonrib-bearing lumbar type vertebral bodies. The vertebral body heights are maintained throughout the lumbar spine. The alignment is normal. There is moderate to severe L5-S1 disc degenerative change. There is mild--moderate L4-L5 disc degenerative change. IMPRESSION: ?? 1. Moderate to severe L5-S1 and mild--moderate L4-L5 disc degenerative change. Requested By: RAFAEL MEZA M.D. Dictated By: ?? AQUILES CROCKETT M.D. ??on Apr 30 2015 ??7:57A This document has been electronically signed by: AQUILES CROCKETT M.D. on Apr 30 2015 ??7:57A [id number] Procedure Note Provider, MD Alexia - 03/04/2017 AQUILES CROCKETT M.D. FINAL REPORT ACC# Date Time Exam [id number] Apr 30, 2015 07:43:00 [id number] Spine Lumbar min 4 views EXAMINATION: 1. Lumbar spine minimum 4 views HISTORY: Low back pain. Lumbar spondylosis. FINDINGS: AP, lateral, flexion, and extension views of the lumbar spine were obtained. Comparison is made to lumbar spine MRI March 15, 2015. There are 5 nonrib-bearing lumbar type vertebral bodies. The vertebral body heights are maintained throughout the lumbar spine. The alignment is normal. There is moderate to severe L5-S1 disc degenerative change. There is mild--moderate L4-L5 disc degenerative change. IMPRESSION: 1. Moderate to severe L5-S1 and mild--moderate L4-L5 disc degenerative change. Requested By: RAFAEL MEZA M.D. Dictated By: AQUILES CROCKETT M.D. on Apr 30 2015 7:57A This document has been electronically signed by: AQUILES CROCKETT M.D. on Apr 30 2015 7:57A [id number] us Historical Provider IMG XR PROCEDURES Final R esult documented in this encounter Visit Diagnoses Diagnosis Low back pain Lumbago Thoracic or lumbosacral neuritis or radiculitis Thoracic or lumbosacral neuritis or radiculitis, unspecified Degeneration of lumbar or lumbosacral intervertebral disc documented in this encounter
--- OUTSIDE RECORDS SUMMARY | 2024-11-06 21:54 | XMS_ITS | Encounter Summary ---
Author Organization [facility] Clinical [facility] Address [address] [place] [address] [address] [place] [address] Phone Care Team Providers Care Gauge Checker Name Role Phone Naresh Hart MD Primary Care Provider Encounter Details Date Type Department Care Team (Late st Contact Info) Description 05/19/2018 Telephone [facility] [address] [facility] [address] [place] [address] Naresh Hart MD [address] [phone] Social History Tobacco Use Types Packs/Day Years Used Date Smoking Tobacco: Never Sex and Gender Information Value Date Recorded Sex Assigned at Not on file Legal Sex Male 6:01 AM DERRICK HAND Gender Identity Not on file Sexual Orientation Not on file documented as of this encounter Miscellaneous Notes * Telephone Encounter - Kayla Mazariegos - 05/19/2018 1:[address] alvarado or lesly spoke * Telephone Encounter - Kayla Mazariegos - 05/19/2018 10:54 AM CDT Wants 2nd opinion for ankle who to see documented in this encounter Plan of Treatment Not on file documented as of this encounter Visit Diagnoses Not on filedocumented in this encounter Care Teams Gauge Checker Relationship Specialty Start Date End Date Naresh Hart MD PCP - General 04/20/17 07/30/20 documented as of this encounter
--- OUTSIDE RECORDS SUMMARY | 2024-11-06 21:54 | XMS_ITS | Encounter Summary ---
Author Organization [facility] Healthcare Address [address] [place] [address] Care Team Providers Care Music Agent Name Role Phone Naresh Hart MD Primary Care Provider Encounter Details Date Type Department Care Team (Latest Contact Info) Description 07/15/2017 8:53 AM CDT - 07/15/2017 11:59 PM CDT Hospital Encounter [facility] [phone] [place] [address] [place] [id number] Discharge Disposition: Discharge to home or self care Social History Tobacco Use Types Packs/Day Years Used Date Smoking Tobacco: Never Sex and Gender Information Value Date Recorded Sex Assigned at Not on file 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 Gender Identity Not on file Sexual Orientation Not on file documented as of this encounter Discharge Disposition Disposition Code Departure Means Destination Discharge to home or self care documented in this encounter Plan of Treatment Not on file documented as of this encounter Procedures Procedure Name Priority Date/Time Associated Diagnosis Comments CT LUMBAR SPINE WO CONTRAST Routine 07/15/2017 2:31 PM CDT documented in this encounter Results * CT Lumbar Spine WO Contrast (07/15/2017 2:31 PM CDT) Anatomical Region Laterality Modality Spine N/A Computed Tomogra phy 07/15/2017 2:31 PM CDT Narrative 07/15/2017 2:31 PM CDT EXAMINATION: CT of the lumbar spine without contrast HISTORY: Lumbar degenerative disc disease. ??Lumbar disc herniation with radiculopathy. TECHNIQUE: Noncontrast images of the lumbar spine were obtained using standard protocol with reformatted images in the coronal and sagittal planes. COMPARISON: Lumbar spine MRI 05/25/2017. FINDINGS: The alignment of the lumbar spine is normal. ??Partially calcified interspinous ligament at L2-L3. Vertebral bodies are normal in height. No acute fracture is detected. Disc degeneration most advanced at L4-L5 and L5-S1. ??L4 inferior endplate Schmorl's node deformity with adjacent sclerosis likely degenerative in nature. Partial calcification of the posterior disc annulus at T12-L1. ??Right paracentral partially calcified disc protrusion at L5-S1, as better evaluated on recent lumbar spine MRI, contributing to severe right foraminal stenosis. ??Mild left foraminal stenosis at S1. ??Mild bilateral facet arthropathy at L4-L5. ??Moderate left and mild right facet arthropathy at L5-S1. ??Other multilevel degenerative changes not significantly changed from recent prior lumbar spine MRI. Visualized intraabdominal contents are unremarkable. IMPRESSION: Multilevel lumbar degenerative disc disease and facet arthropathy as above. Electronically signed by: AKIL MUNOZ MD Radiologist: AKIL MUNOZ ?? Attending: ??MITCH HOFFMAN M.D. Requesting: MITCH HOFFMAN M.D. Requesting Fax: ?? Requesting ID: [id number] Attending Fax: ?? Attending ID: ?? [id number] Completed Time: ?? 07/15/2017 09:31 AM Dictated Time: ?N/A Transcribed Time: 07/15/2017 11:37 AM Signed by: ?AKIL MUNOZ ?? on 07/15/2017 11:37 AM Report To 1 ID: Report To 1 Name: , Report To 1 FAX: Report To 2 ID: Report To 2 Name: , Report To 2 FAX: Report To 3 ID: Report To 3 Name: , Report To 3 FAX: NextGen Order #: Procedure Note Miscellaneous, Not In File / Provider, MD Alexia - 07/15/2017 EXAMINATION: CT of the lumbar spine without contrast HISTORY: Lumbar degenerative disc disease. Lumbar disc herniation with radiculopathy. TECHNIQUE: Noncontrast images of the lumbar spine were obtained using standard protocol with reformatted images in the coronal and sagittal planes. COMPARISON: Lumbar spine MRI 05/25/2017. FINDINGS: The alignment of the lumbar spine is normal. Partially calcified interspinous ligament at L2-L3. Vertebral bodies are normal in height. No acute fracture is detected. Disc degeneration most advanced at L4-L5 and L5-S1. L4 inferior endplate Schmorl's node deformity with adjacent sclerosis likely degenerative in nature. Partial calcification of the posterior disc annulus at T12-L1. Right paracentral partially calcified disc protrusion at L5-S1, as better evaluated on recent lumbar spine MRI, contributing to severe right foraminal stenosis. Mild left foraminal stenosis at S1. Mild bilateral facet arthropathy at L4-L5. Moderate left and mild right facet arthropathy at L5-S1. Other multilevel degenerative changes not significantly changed from recent prior lumbar spine MRI. Visualized intraabdominal contents are unremarkable. IMPRESSION: Multilevel lumbar degenerative disc disease and facet arthropathy as above. Electronically signed by: AKIL MUNOZ MD Radiologist: AKIL MUNOZ Attending: MITCH HOFFMAN M.D. Requesting: MITCH HOFFMAN M.D. Requesting Requesting ID: [id number] Attending Attending ID: [id number] Completed Time: 07/15/2017 09:31 AM Dictated Time: N/A Transcribed Time: 07/15/2017 11:37 AM Signed by: AKIL MUNOZ on 07/15/2017 11:37 AM Report To 1 ID: Report To 1 Name: , Report To 1 FAX: Report To 2 ID: Report To 2 Name: , Report To 2 FAX: Report To 3 ID: Report To 3 Name: , Report To 3 FAX: NextGen Order #: us Mitch Hoffman MD IMG CT PROCEDURES Final R esult documented in this encounter Visit Diagnoses Not on filedocumented in this encounter Care Teams Music Agent Relationship Specialty Start Date End Date Naresh Hart MD PCP - General 04/20/17 07/30/20 documented as of this encounter
--- OUTSIDE RECORDS SUMMARY | 2024-11-06 21:54 | XMS_ITS | Encounter Summary ---
Author Organization [facility] Healthcare Address [address] [place] [address] Care Team Providers Care Network Operations Center Technician Name Role Phone Naresh Hart MD Primary Care Provider Reason for Referral * Diagnostic Imaging (Routine) - Closed Specialty Diagnoses / Procedures Referred By Contac t Referred To Contact Radiology Diagnoses Radiculopathy, lumbar region Procedures MRI Lumbar Spine W WO Contrast Mitch Hoffman MD Phone: tel: fax: [address] [phone] Referral ID Status Reason Start Date Expiration Date Visits Re quested Visits Authorized [id number] Closed 03/26/2019 10/04/2020 1 1 Reason for Visit * Diagnostic Imaging (Routine) - Closed Specialty Diagnoses / Procedures Referred By Contac t Referred To Contact Radiology Diagnoses Radiculopathy, lumbar region Procedures MRI Lumbar Spine W WO Contrast Mitch Hoffman MD Phone: tel: fax: [address] [address] Referral ID Status Reason Start Date Expiration Date Visits Re quested Visits Authorized [id number] Closed 03/26/2019 10/04/2020 1 1 Encounter Details Date Type Department Care Team (Latest Contact Info) Description 06/15/2019 2:54 PM CDT - 06/15/2019 11:59 PM CDT Hospital Encounter [facility] - [facility] [address] [place] [phone] [place] [address] [place] [address] Radiculopathy, lumbar region Discharge Disposition: Discharge to home or self care Social History Tobacco Use Types Packs/Day Years Used Date Smoking Tobacco: Never Smokeless Tobacco: Never Alcohol Use Standard Drinks/Week Comments Yes 0 (1 standard drink = 0.6 oz pur e alcohol) Sex and Gender Information Value Date Recorded Sex Assigned at Not on file 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 Gender Identity Not on file Sexual Orientation Not on file 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 ??Please see above Electronically signed by: MADHAV Goss 06/16/2019 8:39 AM CDT MRI the lumbar spine with and without contrast Radiculopathy not specified COMPARISON: There is an MRI dated 11/27/2017 FINDINGS: Lumbar vertebral body stature and alignment are unchanged. Once again the patient's had surgery on the right at L5-S1. ??Chronic endplate changes and facet disease with postoperative enhancement surrounding the right S1 nerve root sleeve are radiographically unchanged. ??There is less pronounced enhancement within the soft tissues along the surgical tract. ??There is no evidence of an inflammatory process. Lower thoracic canal remains patent without changes or significant abnormality of the distal cord. ??At T12-L1 there continues to be a small left paramedian and marginally enhancing disc protrusion with minimal thecal sac deformity. At L1-L2 disc space height and signal are preserved with mild facet disease and no significant or progressive stenosis. At L2-L3 there is also preservation of the disc space with mild facet disease and minimal encroachment that is radiographically grossly stable. At L3-L4 there is disc desiccation without disc space narrowing. Disc bulging and a central protrusion with moderate facet disease are stable. ??This does cause some thecal sac compression and a slightly oval configuration with mild encroachment to the foramen. At L4-L5 chronic degenerative marrow changes and disc space narrowing are radiographically similar to the last study. ??There is disc bulging with some spondylitic changes asymmetric to the left and moderate facet disease. ??Degree of stenosis is relatively stable with some thecal sac flattening and lateral recess and inferior foraminal stenosis that is not progressed. Procedure Note Madhav Ramos MD - 06/16/2019 MRI the lumbar spine with and without contrast Radiculopathy not specified COMPARISON: There is an MRI dated 11/27/2017 FINDINGS: Lumbar vertebral body stature and alignment are unchanged. Once again the patient's had surgery on the right at L5-S1. Chronic endplate changes and facet disease with postoperative enhancement surrounding the right S1 nerve root sleeve are radiographically unchanged. There is less pronounced enhancement within the soft tissues along the surgical tract. There is no evidence of an inflammatory process. Lower thoracic canal remains patent without changes or significant abnormality of the distal cord. At T12-L1 there continues to be a small left paramedian and marginally enhancing disc protrusion with minimal thecal sac deformity. At L1-L2 disc space height and signal are preserved with mild facet disease and no significant or progressive stenosis. At L2-L3 there is also preservation of the disc space with mild facet disease and minimal encroachment that is radiographically grossly stable. At L3-L4 there is disc desiccation without disc space narrowing. Disc bulging and a central protrusion with moderate facet disease are stable. This does cause some thecal sac compression and a slightly oval configuration with mild encroachment to the foramen. At L4-L5 chronic degenerative marrow changes and disc space narrowing are radiographically similar to the last study. There is disc bulging with some spondylitic changes asymmetric to the left and moderate facet disease. Degree of stenosis is relatively stable with some thecal sac flattening and lateral recess and inferior foraminal stenosis that is not progressed. IMPRESSION: No definite change in the pattern of disease or degree of stenosis since last exam. Please see above Electronically signed by: MADHAV RAMOS Mitch Hoffman MD IMG MRI PROCEDURES Final Result documented in this encounter Visit Diagnoses Diagnosis Radiculopathy, lumbar region Thoracic or lumbosacral neuritis or radiculitis, unspecified documented in this encounter Administered Medications Inactive Administered Medications - up to 3 most recent administrations Medication Order MAR Action Action Date Dose Rate Site gadoterate meglumine (DOTAREM) 0.5 mmol/mL injection 20 mL 20 mL, intravenous, Once in imaging, contrast, Starting on Tue06/15/19 at 1557, For 1 dose Given 06/15/2019 3:57 PM CDT 20 mL documented in this encounter Orders Medications Ordered That Jose Manuel ht Not Have Been Administered Count Last Ordered Date First Ordered Date gadoterate meglumine (DOTARE M) 0.5 mmol/mL injection 20 mL 1 06/15/2019 documented in this encounter Care Teams Network Operations Center Technician Relationship Specialty Start Date End Date Naresh Hart MD PCP - General 04/20/17 07/30/20 documented as of this encounter
--- OUTSIDE RECORDS SUMMARY | 2024-11-06 21:54 | XMS_ITS | Encounter Summary ---
Author Organization [facility] Address [address] [facility] [address] [place] [address] Phone Care Team Providers Care Retail Business Analyst Name Role Phone Naresh Hart MD Primary Care Provider Encounter Details Date Type Department Care Team (Late st Contact Info) Description 10/08/2019 Telephone [facility] [address] [facility] [address] [place] [address] Naresh Hart MD [address] [phone] Social History Tobacco Use Types Packs/Day Years Used Date Smoking Tobacco: Never Smokeless Tobacco: Never Alcohol Use Standard Drinks/Week Comments Yes 0 (1 standard drink = 0.6 oz pur e alcohol) PHQ-2 Answer Date Recorded PHQ-2 Score 0 06/29/2019 Sex and Gender Information Value Date Recorded Sex Assigned at Not on file 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 Some it is a scam and waste of their money. There isrisk of high blood pressures, cholesterol, heart attack, strokes, acne, hairloss and prostate cancer. Those things have to be consider too. 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
--- OUTSIDE RECORDS SUMMARY | 2024-11-06 21:54 | XMS_ITS | Encounter Summary ---
Author Organization [facility] Healthcare Address [address] [place] [address] Care Team Providers Care Head Holder Name Role Phone Naresh Hart MD Primary Care Provider Encounter Details Date Type Department Care Team (Latest Contact Info) Description 05/25/2017 8:08 AM CDT - 05/25/2017 11:59 PM CDT Hospital Encounter [facility] [phone] [place] [address] [place] [id number] Discharge Disposition: Discharge to home or self care Social History Tobacco Use Types Packs/Day Years Used Date Smoking Tobacco: Never Sex and Gender Information Value Date Recorded Sex Assigned at Not on file 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 Gender Identity Not on file Sexual Orientation Not on file documented as of this encounter Discharge Disposition Disposition Code Departure Means Destination Discharge to home or self care documented in this encounter Plan of Treatment Not on file documented as of this encounter Procedures Procedure Name Priority Date/Time Associated Diagnosis Comments MRI LUMBAR SPINE WO CONTRAST Routine 05/25/2017 2:43 PM CDT documented in this encounter Results * MRI Lumbar Spine WO Contrast (05/25/2017 2:43 PM CDT) Anatomical Region Laterality Modality Spine N/A Magnetic Resonan ce 05/25/2017 2:43 PM CDT Narrative 05/25/2017 2:43 PM CDT EXAMINATION: Magnetic resonance imaging (MRI) of the lumbar spine without contrast HISTORY: Intervertebral lumbar disc disorders with radiculopathy TECHNIQUE: Multiplanar multi-weighted MRI of the lumbar spine was performed without intravenous contrast using the standard lumbar spine protocol. COMPARISON: 03/15/2015 FINDINGS: Normal lumbar alignment. ?? Degenerative Modic type II endplate changes adjacent to the L4-L5 disc space, which have worsened from prior. Conus medullaris terminates at the level of L1. Normal distal spinal cord signal intensity and morphology. Unremarkable visualized intraabdominal contents. L1-L2: Normal disc. ??Mild facet arthropathy. ??No spinal canal or foraminal stenosis. L2-L3: Normal disc. ??Mild facet arthropathy. ??No spinal canal or foraminal stenosis. L3-L4: Disc desiccation. ??Mild disc bulge. ??Moderate bilateral facet arthropathy right greater than left. ??There is flattening of the ventral thecal sac. ??No foraminal stenosis. L4-L5: Disc desiccation with diffuse disc bulging. ??Moderate bilateral facet arthropathy. ??Minimal spinal canal stenosis centrally. ??No lateral recess encroachment. ??Mild foraminal stenosis bilaterally. L5-S1: Disc desiccation and right paracentral/foraminal protrusion with severe stenosis of the right lateral recess. ??Mild bilateral facet arthropathy. ??No spinal canal stenosis centrally. ??Mild left and severe right foraminal stenosis. IMPRESSION: Multilevel degenerative changes of the lumbar spine as above. Unchanged appearance of right paracentral/foraminal disc protrusion at L5-S1 contributing to severe right neural foraminal stenosis. Degenerative Modic changes adjacent to L5-S1 have worsened from prior. Electronically signed by: AKIL MUNOZ MD Radiologist: AKIL MUNOZ ?? Attending: ??MITCH HOFFMAN M.D. Requesting: MITCH HOFFMAN M.D. Requesting Fax: ?? Requesting ID: [id number] Attending Fax: ?? Attending ID: ?? [id number] Completed Time: ?? 05/25/2017 09:43 AM Dictated Time: ?N/A Transcribed Time: 05/25/2017 10:55 AM Signed by: ?AKIL MUNOZ ?? on 05/25/2017 10:55 AM Report To 1 ID: Report To 1 Name: , Report To 1 FAX: Report To 2 ID: Report To 2 Name: , Report To 2 FAX: Report To 3 ID: Report To 3 Name: , Report To 3 FAX: NextGen Order #: Procedure Note Miscellaneous, Not In File / Provider, MD Alexia - 05/25/2017 EXAMINATION: Magnetic resonance imaging (MRI) of the lumbar spine without contrast HISTORY: Intervertebral lumbar disc disorders with radiculopathy TECHNIQUE: Multiplanar multi-weighted MRI of the lumbar spine was performed without intravenous contrast using the standard lumbar spine protocol. COMPARISON: 03/15/2015 FINDINGS: Normal lumbar alignment. Degenerative Modic type II endplate changes adjacent to the L4-L5 disc space, which have worsened from prior. Conus medullaris terminates at the level of L1. Normal distal spinal cord signal intensity and morphology. Unremarkable visualized intraabdominal contents. L1-L2: Normal disc. Mild facet arthropathy. No spinal canal or foraminal stenosis. L2-L3: Normal disc. Mild facet arthropathy. No spinal canal or foraminal stenosis. L3-L4: Disc desiccation. Mild disc bulge. Moderate bilateral facet arthropathy right greater than left. There is flattening of the ventral thecal sac. No foraminal stenosis. L4-L5: Disc desiccation with diffuse disc bulging. Moderate bilateral facet arthropathy. Minimal spinal canal stenosis centrally. No lateral recess encroachment. Mild foraminal stenosis bilaterally. L5-S1: Disc desiccation and right paracentral/foraminal protrusion with severe stenosis of the right lateral recess. Mild bilateral facet arthropathy. No spinal canal stenosis centrally. Mild left and severe right foraminal stenosis. IMPRESSION: Multilevel degenerative changes of the lumbar spine as above. Unchanged appearance of right paracentral/foraminal disc protrusion at L5-S1 contributing to severe right neural foraminal stenosis. Degenerative Modic changes adjacent to L5-S1 have worsened from prior. Electronically signed by: AKIL MUNOZ MD Radiologist: AKIL MUNOZ Attending: MITCH HOFFMAN M.D. Requesting: MITCH HOFFMAN M.D. Requesting Requesting ID: [id number] Attending Attending ID: [id number] Completed Time: 05/25/2017 09:43 AM Dictated Time: N/A Transcribed Time: 05/25/2017 10:55 AM Signed by: AKIL MUNOZ on 05/25/2017 10:55 AM Report To 1 ID: Report To 1 Name: , Report To 1 FAX: Report To 2 ID: Report To 2 Name: , Report To 2 FAX: Report To 3 ID: Report To 3 Name: , Report To 3 FAX: NextGen Order #: Mitch Hoffman MD IMG MRI PROCEDURES Final Result documented in this encounter Visit Diagnoses Not on filedocumented in this encounter Care Teams Head Holder Relationship Specialty Start Date End Date Naresh Hart MD PCP - General 04/20/17 07/30/20 documented as of this encounter
--- OUTSIDE RECORDS SUMMARY | 2024-11-06 21:54 | XMS_ITS | Encounter Summary ---
Author Organization [facility] Address [address] [place] [address] [address] [place] [address] Phone Care Team Providers Care Independent Trader Name Role Phone Naresh Hart MD Primary Care Provider Encounter Details Date Type Department Care Team (Late st Contact Info) Description 07/31/2018 Telephone [facility] [address] [facility] [address] [place] [address] Naresh Hart MD [address] [id number] Social History Tobacco Use Types Packs/Day Years Used Date Smoking Tobacco: Never Smokeless Tobacco: Never Alcohol Use Standard Drinks/Week Comments Yes 0 (1 standard drink = 0.6 oz pur e alcohol) Sex and Gender Information Value Date Recorded Sex Assigned at Not on file 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 Gender Identity Not on file Sexual Orientation Not on file 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
--- OUTSIDE RECORDS SUMMARY | 2024-11-06 21:54 | XMS_ITS | Encounter Summary ---
Author Organization [facility] Healthcare Address [address] [place] [address] Care Team Providers Care Clinical Engineering Director Name Role Phone Naresh Hart MD Primary Care Provider Reason for Referral * Diagnostic Imaging (Routine) - Closed Specialty Diagnoses / Procedures Referred By Kevyn welch Referred To Contact Diagnoses Right foot pain Procedures XR Foot Right 3 or More Views Nadia Severino MD Phone: tel: fax: [facility] Referral ID Status Reason Start Date Expiration Date Visits Re quested Visits Authorized [id number] Closed 07/17/2018 01/26/2020 1 1 Reason for Visit * Diagnostic Imaging (Routine) - Closed Specialty Diagnoses / Procedures Referred By Kevyn welch Referred To Contact Diagnoses Right foot pain Procedures XR Foot Right 3 or More Views Nadia Severino MD Phone: tel: fax: [facility] Referral ID Status Reason Start Date Expiration Date Visits Re quested Visits Authorized [id number] Closed 07/17/2018 01/26/2020 1 1 Encounter Details Date Type Department Care Team (Latest Contact Info) Description 07/17/2018 8:19 AM CDT - 07/17/2018 11:59 PM CDT Hospital Encounter 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
--- OUTSIDE RECORDS SUMMARY | 2024-11-06 21:54 | XMS_ITS | Encounter Summary ---
Author Organization [facility] Healthcare Address [address] [place] [address] Care Team Providers Care Humanities Division Chair Name Role Phone Naresh Hart MD Primary Care Provider Encounter Details Date Type Department Care Team (Latest Contact Info) Description 11/27/2017 2:12 PM FURNITURE REPRODUCER - 11/27/2017 11:59 PM FURNITURE REPRODUCER Hospital Encounter [facility] [phone] [place] [address] [address] Maryam Hwang, [place] [address] [phone] Discharge Disposition: Discharge to home or self care Social History Tobacco Use Types Packs/Day Years Used Date Smoking Tobacco: Never Sex and Gender Information Value Date Recorded Sex Assigned at Not on file 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 Gender Identity Not on file Sexual Orientation Not on file documented as of this encounter Discharge Disposition Disposition Code Departure Means Destination Discharge to home or self care documented in this encounter Plan of Treatment Not on file documented as of this encounter Procedures Procedure Name Priority Date/Time Associated Diagnosis Comments MRI LUMBAR SPINE W WO CONTRAST Routine 11/27/2017 9:23 PM FURNITURE REPRODUCER documented in this encounter Results * MRI Lumbar Spine W WO Contrast (11/27/2017 9:23 PM FURNITURE REPRODUCER) Anatomical Region Laterality Modality Spine N/A Magnetic Resonan ce 11/27/2017 9:23 PM FURNITURE REPRODUCER Narrative 11/27/2017 9:50 PM FURNITURE REPRODUCER MRI of the lumbar spine with and without contrast HISTORY: Disc disease not specified COMPARISON: There is an MRI from 05/26/2017 FINDINGS: Since last study there are changes of discectomy and right laminectomy at L5-S1. ??Vertebral body stature and alignment are unchanged. ??There continues to be disc desiccation with disc space narrowing and bordering degenerative marrow changes at the L4-L5 level and to a lesser extent at L3-L4. ??The lower thoracic canal distal cord and conus are grossly unchanged. ??There is disc space narrowing with left paramedian protrusion at the T12-L1 level with minimal thecal sac deformity. ??At L1-L2 and L2-L3 disc space height and signal are preserved and there is no significant or progressive degenerative disease or significant stenosis. At L3-L4 there is disc bulging with minimal central annular fissure and protrusion and mild facet disease. ??There is some mild flattening of the thecal sac. ??Foramen remain patent. ??At L4-L5 or pronounced disc bulging and mild to moderate foraminal stenosis but this is grossly unchanged. ??Facet disease is moderate thecal sac deformity is minimal. Canals been decompressed at L5-S1 with herniation of thecal sac into the laminectomy defect but no significant collection or pseudomeningocele. ??There is nonspecific enhancing granulation tissue in the laminectomy defect and surrounding the right S1 nerve root. Foramen are tilted with some bony right lateral recess and foraminal stenosis. ??There is no disc fragment. ??There is no arachnoiditis. IMPRESSION: Changes of discectomy a right laminectomy at L5-S1. There is expected postoperative enhancing granulation tissue in the laminectomy and also involving the right S1 nerve root without a disc fragment. ??There is some ongoing bony encroachment to the right lateral recess and foramen. ??There is relatively stable degenerative disease in mild stenosis at L3-L4 and L4-L5. ??Please see above Electronically signed by: DULCE MARIA RAMOS Radiologist: DULCE MARIA RAMOS ?? Attending: ??MARYAM HWANG [facility] Requesting: MARYAM HWANGP Requesting Fax: ?? Requesting ID: [id number] Attending Fax: ?? Attending ID: ?? [id number] Completed Time: ?? 11/27/2017 3:23 PM Dictated Time: ?N/A Transcribed Time: 11/27/2017 3:50 PM Signed by: ?RACHEL DULCE MARIA LANG ?? on 11/27/2017 3:50 PM Report To 1 ID: Report To 1 Name: , Report To 1 FAX: Report To 2 ID: Report To 2 Name: , Report To 2 FAX: Report To 3 ID: Report To 3 Name: , Report To 3 FAX: NextGen Order #: Procedure Note Miscellaneous, Not In File - 11/27/2017 MRI of the lumbar spine with and without contrast HISTORY: Disc disease not specified COMPARISON: There is an MRI from 05/26/2017 FINDINGS: Since last study there are changes of discectomy and right laminectomy at L5-S1. Vertebral body stature and alignment are unchanged. There continues to be disc desiccation with disc space narrowing and bordering degenerative marrow changes at the L4-L5 level and to a lesser extent at L3-L4. The lower thoracic canal distal cord and conus are grossly unchanged. There is disc space narrowing with left paramedian protrusion at the T12-L1 level with minimal thecal sac deformity. At L1-L2 and L2-L3 disc space height and signal are preserved and there is no significant or progressive degenerative disease or significant stenosis. At L3-L4 there is disc bulging with minimal central annular fissure and protrusion and mild facet disease. There is some mild flattening of the thecal sac. Foramen remain patent. At L4-L5 or pronounced disc bulging and mild to moderate foraminal stenosis but this is grossly unchanged. Facet disease is moderate thecal sac deformity is minimal. Canals been decompressed at L5-S1 with herniation of thecal sac into the laminectomy defect but no significant collection or pseudomeningocele. There is nonspecific enhancing granulation tissue in the laminectomy defect and surrounding the right S1 nerve root. Foramen are tilted with some bony right lateral recess and foraminal stenosis. There is no disc fragment. There is no arachnoiditis. IMPRESSION: Changes of discectomy a right laminectomy at L5-S1. There is expected postoperative enhancing granulation tissue in the laminectomy and also involving the right S1 nerve root without a disc fragment. There is some ongoing bony encroachment to the right lateral recess and foramen. There is relatively stable degenerative disease in mild stenosis at L3-L4 and L4-L5. Please see above Electronically signed by: DULCE MARIA RAMOS Radiologist: DULCE MARIA RAMOS Attending: MARYAM HWANG Requesting: MARYAM HWANGP Requesting Requesting ID: [id number] Attending Attending ID: [id number] Completed Time: 11/27/2017 3:23 PM Dictated Time: N/A Transcribed Time: 11/27/2017 3:50 PM Signed by: DULCE MARIA RAMOS on 11/27/2017 3:50 PM Report To 1 ID: Report To 1 Name: , Report To 1 FAX: Report To 2 ID: Report To 2 Name: , Report To 2 FAX: Report To 3 ID: Report To 3 Name: , Report To 3 FAX: NextGen Order #: Maryam Hwang INSURANCE SALESPERSON IMG MRI PROCEDURES Edited Re sult - Final documented in this encounter Visit Diagnoses Not on filedocumented in this encounter Care Teams Humanities Division Chair Relationship Specialty Start Date End Date Naresh Hart MD PCP - General 04/20/17 07/30/20 documented as of this encounter
== END 2024-10-30 10:31 | disposition home or self-care (01) ==
LOC: ANHGOSHLAB 10:31
PROVIDERS: PCP Family Medicine; Visit Provider Family Medicine
DX: Z00.00 Encounter for general adult medical examination without abnormal findings (principal); M62.561 Muscle wasting and atrophy, not elsewhere classified, right lower leg; Z79.899 Other long term (current) drug therapy; Z13.29 Encounter for screening for other suspected endocrine disorder; E53.8 Deficiency of other specified B group vitamins; R73.9 Hyperglycemia, unspecified; E55.9 Vitamin D deficiency, unspecified; E78.5 Hyperlipidemia, unspecified
CPT/HCPCS: 36415; 80053; 80061; 82306; 82607; 83036; 84443; 85025